=== PATIENT | female | born 1930 | race Caucasian/White ===

== ENCOUNTER 2017-09-26 21:25 | Inpatient (IN) | payer MEDICARE, BC ==
[~2017-09-26] VITALS: Ht 157.5 cm; Wt 71.2 kg
[2017-09-26 21:54] VITALS: BP 148/105
[2017-09-26 22:08] LABS: BASOPHILS % (AUTO) 0.7 % (0.0-2.0); EOSINOPHILS % (AUTO) 0.6 % (0.0-3.0); HEMATOCRIT 36.5 % (37.0-47.0); HEMOGLOBIN 12.1 G/DL (12.0-16.0); LYMPHOCYTES % (AUTO) 26.8 % (20.0-45.0); MEAN CORPUSCULAR VOLUME 96 FL (80-99); MONOCYTES % (AUTO) 5.5 % (1.0-10.0); NEUTROPHILS % (AUTO) 66.3 % (45.0-75.0); PLATELET COUNT 318 K/UL (150-450); RED BLOOD COUNT 3.81 M/UL (4.20-5.40); RED CELL DISTRIBUTION WIDTH 14.2 % (11.6-14.8); WHITE BLOOD COUNT 11.3 K/UL (4.8-10.8)
[2017-09-26 22:09] LABS: ANION GAP 7 mmol/L (5-15); BLOOD UREA NITROGEN 40 mg/dL (7-18); CALCIUM 9.7 MG/DL (8.5-10.1); CARBON DIOXIDE 29 MMOL/L (21-32); CHLORIDE 102 MMOL/L (98-107); CREATININE 1.3 MG/DL (0.55-1.30); POTASSIUM 3.7 MMOL/L (3.5-5.1); SODIUM 138 MMOL/L (136-145)
[2017-09-26] MEDS ORDERED: ATROPINE SULFATE PO (22:13)
[2017-09-26] MEDS ORDERED: DONEPEZIL HCL10 M2 ORAL (22:13)
[2017-09-26] MEDS ORDERED: FERROUS SULFAT325 MG ORAL (22:13)
[2017-09-26] MEDS ORDERED: VITAMIN D1000 UNI1 ORAL (22:13)
[2017-09-26] MEDS ORDERED: VITAMIN B-121000 MC3 PO (22:13)
[2017-09-26] MEDS ORDERED: LASIX20 M1 ORAL (22:13)
[2017-09-26] MEDS ORDERED: ELIQUIS5 MG PO (22:13)
[2017-09-26] MEDS ORDERED: CEPHALEXIN500 M1 ORAL (22:13)
[2017-09-26] MEDS ORDERED: NAMENDA5 MG ORAL (22:13)
[2017-09-26] MEDS ORDERED: POTASSIUM CHLO10 ME3 ORAL (22:13)
[2017-09-26 22:18] LABS: APPEARANCE,URINE CLEAR; BILIRUBIN, URINE NEGATIVE (NEGATIVE); COLOR,URINE PALE YELLOW; GLUCOSE, URINE (UA) NEGATIVE (NEGATIVE); KETONES,URINE NEGATIVE (NEGATIVE); LEUKOCYTE ESTERASE ,URINE NEGATIVE (NEGATIVE); NITRITE,URINE NEGATIVE (NEGATIVE); PH,URINE 5 (4.5-8.0); PROTEIN,URINE NEGATIVE (NEGATIVE); UROBILINOGEN,URINE NORMAL MG/DL (0.0-1.0)
--- NOTE | 2017-09-26 22:20 | Emergency Room Report ---
History of Present Illness General Chief Complaint: Dyspnea/Respdistress Source: Family Member, EMS Present Illness HPI Patient present paramedics from nursing facility Most of the information is obtained from patient's son He reports that few days ago patient had redness to the left jaw area She was started on Keflex The area has stayed erythematous Throughout the day today now she has deteriorated Having tremors and shakes Patient's speech however seems to have improved from previous Son reports the last time she had shaking she had pneumonia However these tremors seemed to be ongoing longer No reports of vomiting no reports of diarrhea Patient was also started on atropine recently Patient has a mild cough Patient herself is not able to provide any history, underlying dementia Son also reports recent bilateral pulmonary embolisms patient is on eliquis for that Son also reports that the patient had a fall several days ago which is unlike the patient Allergies: Coded Allergies: ACETAMINOPHEN (Verified Allergy, Unknown, 09/26/17) CODEINE (Verified Allergy, Unknown, 09/26/17) HYDROCODONE (Verified Allergy, Unknown, 09/26/17) MORPHINE (Verified Allergy, Unknown, 09/26/17) Uncoded Allergies: tartrazine (Allergy, Unknown, 09/26/17) Patient History Limited by: medical condition Pertinent Family History: unable to obtain Reviewed Nursing Documentation: PMH: Agreed, PSxH: Agreed Nursing Documentation-PMH History Of Psychiatric Problem: Yes - DEMENTIA Review of Systems All Other Systems: limited - Other than the ones mentioned in the history of present illness all others are reviewed however they do stay limited due to the patient's mental status Physical Exam Vital Signs Date Time Temp Pulse Resp B/P (MAP) Pulse Ox O2 Delivery O2 Flow Rate FiO2 09/26/17 21:35 98.8 100 18 148/105 94 Room Air 98.8 09/26/17 22:01 3.0 97 Sp02 EP Interpretation: reviewed, normal General Appearance: mild distress - Appears tremulous Head: normocephalic, atraumatic Eyes: bilateral eye PERRL ENT: other - Left-sided probable parotid gland erythema extending down into the lower mandibular region Neck: supple Respiratory: no retraction, crackles - With fine wheezing bilaterally no retractions Cardiovascular #1: no edema, no gallop Gastrointestinal: non tender, soft Genitourinary: no CVA tenderness Musculoskeletal: other - Patient has episodic tremors, appears agitated, no obvious focal weakness Neurologic: responsive - Responsive to the son, patient is able to also say a few words which the son reports is unusual for her Skin: other - Diffuse purpuric lesions, increased erythema at the chest area, increased erythema left mandibular parotid region Lymphatic: other - Left parotid gland edema Medical Decision Making Diagnostic Impression: Primary Impression: Pneumonia Additional Impressions: Encephalitis Parotiditis ER Course Patient is concerning with multiple differentials Complex requiring blood work and multiple imaging CT head does not reveal any acute pathology CT facial was also benign Patient's CT chest shows left lower lobe infiltrate however no signs of obvious emboli Patient has done significantly better with acute intervention And at this time admitted after antibiotic initiation Labs Test 09/26/17 21:50 09/26/17 22:09 09/26/17 22:45 White Blood Count 11.3 K/UL (4.8-10.8) Red Blood Count 3.81 M/UL (4.20-5.40) Hemoglobin 12.1 G/DL (12.0-16.0) Hematocrit 36.5 % (37.0-47.0) Mean Corpuscular Volume 96 FL (80-99) Mean Corpuscular Hemoglobin 31.8 PG (27.0-31.0) Mean Corpuscular Hemoglobin Concent 33.2 G/DL (32.0-36.0) Red Cell Distribution Width 14.2 % (11.6-14.8) Platelet Count 318 K/UL (150-450) Mean Platelet Volume 7.5 FL (6.5-10.1) Neutrophils (%) (Auto) 66.3 % (45.0-75.0) Lymphocytes (%) (Auto) 26.8 % (20.0-45.0) Monocytes (%) (Auto) 5.5 % (1.0-10.0) Eosinophils (%) (Auto) 0.6 % (0.0-3.0) Basophils (%) (Auto) 0.7 % (0.0-2.0) Sodium Level 138 MMOL/L (136-145) Potassium Level 3.7 MMOL/L (3.5-5.1) Chloride Level 102 MMOL/L (98-107) Carbon Dioxide Level 29 MMOL/L (21-32) Anion Gap 7 mmol/L (5-15) Blood Urea Nitrogen 40 mg/dL (7-18) Creatinine 1.3 MG/DL (0.55-1.30) Estimat Glomerular Filtration Rate mL/min (>60) Glucose Level 119 MG/DL (74-106) Lactic Acid Level 1.40 mmol/L (0.66-2.22) Calcium Level 9.7 MG/DL (8.5-10.1) Total Bilirubin 0.3 MG/DL (0.2-1.0) Aspartate Amino Transf (AST/SGOT) 18 U/L (15-37) Alanine Aminotransferase (ALT/SGPT) 14 U/L (12-78) Alkaline Phosphatase 62 U/L (46-116) Total Creatine Kinase 173 U/L (26-308) Creatine Kinase MB 2.6 NG/ML (0.0-3.6) Creatine Kinase MB Relative Index 1.5 Troponin I 0.000 ng/mL (0.000-0.056) Pro-B-Type Natriuretic Peptide 587 pg/mL (0-125) Total Protein 6.8 G/DL (6.4-8.2) Albumin 3.0 G/DL (3.4-5.0) Globulin 3.8 g/dL Albumin/Globulin Ratio 0.8 (1.0-2.7) Lipase 104 U/L (73-393) Urine Color Pale yellow Urine Appearance Clear Urine pH 5 (4.5-8.0) Urine Specific [place] 1.015 (1.005-1.035) Urine Protein Negative (NEGATIVE) Urine Glucose (UA) Negative (NEGATIVE) Urine Ketones Negative (NEGATIVE) Urine Occult Blood Negative (NEGATIVE) Urine Nitrite Negative (NEGATIVE) Urine Bilirubin Negative (NEGATIVE) Urine Urobilinogen Normal MG/DL (0.0-1.0) Urine Leukocyte Esterase Negative (NEGATIVE) Prothrombin Time 11.1 SEC (9.30-11.50) Prothromb Time International Ratio 1.1 (0.9-1.1) Activated Partial Thromboplast Time 29 SEC (23-33) Rhythm Strip Diag. Results EP Interpretation: yes Rate: 78 Rhythm: NSR, no PVC's, no ectopy Chest X-Ray Diagnostic Results Chest X-Ray Diagnostic Results : Chest X-Ray Ordered: Yes # of Views/Limited/Complete: 1 View Indication: Shortness of Breath EP Interpretation: Yes Interpretation: no pneumothorax, other - Left lower lobe atelectasis/ effusion versus infiltrate heart size borderline enlarged Impression: Other - Left lower lobe infiltrate Electronically Signed by: Cullen Bedoya, DO CT/MRI/US Diagnostic Results CT/MRI/US Diagnostic Results : Impression CT head no acute disease CT facial no acute disease CT chest left lower lobe infiltrate no obvious emboli Last Vital Signs Date Time Temp Pulse Resp B/P (MAP) Pulse Ox O2 Delivery O2 Flow Rate FiO2 09/26/17 22:01 108 33 Nasal Cannula 3.0 97 09/26/17 21:54 148/105 79 09/26/17 21:35 98.8 98.8 Status: improved Disposition: ADMITTED INPATIENT Condition: Serious CULLEN BEDOYA D.O. Sep 26, 2017 22:20
[2017-09-26] MEDS ORDERED: DiphenhydrAMINE 50mg/ml Inj IVP ONE (22:45)
[2017-09-26] MEDS ORDERED: LORazepam Inj 2mg/ml 1ml IV ONE (22:45)
[2017-09-26 22:46] LABS: ALANINE AMINOTRANSFERASE 14 U/L (12-78); ALBUMIN/GLOBULIN RATIO 0.8 (1.0-2.7); ALKALINE PHOSPHATASE 62 U/L (46-116); ASPARTATE AMINO TRANSFERASE 18 U/L (15-37); BILIRUBIN,TOTAL 0.3 MG/DL (0.2-1.0); CKMB 2.6 NG/ML (0.0-3.6); CREATINE KINASE 173 U/L (26-308)
[2017-09-26 23:06] LABS: INR 1.1 (0.9-1.1)
[2017-09-26] MEDS ORDERED: Midazolam 2mg/2ml Inj IVP ONE (23:15)
[2017-09-27 00:09] VITALS: BP 131/60
[2017-09-27 00:53] VITALS: BP 130/59
[2017-09-27] MEDS ORDERED: Nitroglycerin Subl 0.4mg tab SL PRN (04:45)
[2017-09-27] MEDS ORDERED: Pneumococcal Vaccine 25mcg/0.5ml IM ONE (04:45)
[2017-09-27] MEDS ORDERED: Flu Vaccine Quadrivalent 0.5ml IM ONE (04:45)
[2017-09-27] MEDS: Enoxaparin 30mg Inj SUBQ SCH (05:54)
[2017-09-27] MEDS ORDERED: 1/2NS w/KCl 20mEq 1000ml 1,000 ML IV SCH (06:00)
[2017-09-27] MEDS ORDERED: Ipratropium 0.02% Inh Soln 2.5ml UD HHN SCH (07:00)
[2017-09-27] MEDS: Albuterol/Ipratropium 3ml neb HHN SCH ×3 (08:24→19:22)
--- NOTE | 2017-09-27 09:01 | Consultation ---
History of Present Illness General Date patient seen: Sep 27, 2017 Chief Complaint: Dyspnea/Respdistress Present Illness HPI 87 year old female with hx of dementia, residential care facility resident brought in by paramedics with cc of wheezing and shaking. Pt was started on Keflex two days earlier for some facila cellulitis Initial evaluation including CXR showed that the pt had LLL pneumonia and admitted for further work up. Pt is awake, almost aphasic, only smiles to my questions. Allergies: Coded Allergies: ACETAMINOPHEN (Verified Allergy, Unknown, 09/26/17) CODEINE (Verified Allergy, Unknown, 09/26/17) HYDROCODONE (Verified Allergy, Unknown, 09/26/17) MORPHINE (Verified Allergy, Unknown, 09/26/17) Uncoded Allergies: tartrazine (Allergy, Unknown, 09/26/17) Medication History Scheduled Apixaban (Eliquis), 5 MG PO BID, (Reported) Cephalexin* (Cephalexin*), 500 MG ORAL BID, (Reported) Cholecalciferol (Vitamin D3)* (Vitamin D*), 2,000 UNITS ORAL DAILY, (Reported) Cyanocobalamin (Vitamin B-12) (Vitamin B-12), 1,000 MCG PO DAILY, (Reported) Donepezil Hcl* (Donepezil Hcl*), 10 MG ORAL DAILY, (Reported) Ferrous Sulfate* (Ferrous Sulfate*), 325 MG ORAL DAILY, (Reported) Furosemide* (Lasix*), 20 MG ORAL TWICE A DAY, (Reported) Memantine Hcl* (Namenda*), 5 MG ORAL TWICE A DAY, (Reported) Potassium Chloride (Potassium Chloride), 10 MEQ ORAL TWICE A DAY, (Reported) [Atropine Sulfate], 1 % PO THREE TIMES A DAY, (Reported) Patient History Healthcare decision maker Resuscitation status Full Code Advanced Directive on File No Past Medical/Surgical History Past Medical/Surgical History: (1) Dementia Review of Systems All Other Systems: negative except mentioned in HPI Physical Exam General Appearance: WD/WN Lines, tubes and drains: peripheral HEENT: normocephalic, atraumatic Neck: non-tender, normal alignment Respiratory/Chest: chest wall non-tender, lungs clear Cardiovascular/Chest: normal peripheral pulses, normal rate Abdomen: normal bowel sounds, non tender Genitourinary/Rectal: normal genital exam, normal rectal exam Extremities: normal range of motion, non-tender Skin Exam: normal pigmentation Neurologic: clinical rehabilitation specialist II-XII grossly normal Last 24 Hour Vital Signs Date Time Temp Pulse Resp B/P (MAP) Pulse Ox O2 Delivery O2 Flow Rate FiO2 09/27/17 08:30 91 20 98 Room Air 21 09/27/17 08:24 21 09/27/17 08:24 90 20 98 Room Air 21 09/27/17 08:24 90 20 Room Air 98 09/27/17 03:58 77 09/27/17 01:00 103 25 130/59 99 Room Air 09/27/17 00:53 98.8 25 130/59 99 Nasal Cannula 3.0 97 98.8 09/27/17 00:09 98.8 25 131/60 99 Nasal Cannula 3.0 98.8 09/26/17 22:01 108 33 Nasal Cannula 3.0 97 09/26/17 21:54 112 33 148/105 79 Room Air 09/26/17 21:35 98.8 100 18 148/105 94 Room Air 98.8 Intake and Output 09/26/17 09/27/17 19:00 07:00 Intake Total 71.6 ml Balance 71.6 ml IV Total 71.6 ml # Voids 1 Laboratory Tests Test 09/26/17 21:50 09/26/17 22:09 09/26/17 22:45 White Blood Count 11.3 K/UL (4.8-10.8) H Red Blood Count 3.81 M/UL (4.20-5.40) L Hemoglobin 12.1 G/DL (12.0-16.0) Hematocrit 36.5 % (37.0-47.0) L Mean Corpuscular Volume 96 FL (80-99) Mean Corpuscular Hemoglobin 31.8 PG (27.0-31.0) H Mean Corpuscular Hemoglobin Concent 33.2 G/DL (32.0-36.0) Red Cell Distribution Width 14.2 % (11.6-14.8) Platelet Count 318 K/UL (150-450) Mean Platelet Volume 7.5 FL (6.5-10.1) Neutrophils (%) (Auto) 66.3 % (45.0-75.0) Lymphocytes (%) (Auto) 26.8 % (20.0-45.0) Monocytes (%) (Auto) 5.5 % (1.0-10.0) Eosinophils (%) (Auto) 0.6 % (0.0-3.0) Basophils (%) (Auto) 0.7 % (0.0-2.0) Sodium Level 138 MMOL/L (136-145) Potassium Level 3.7 MMOL/L (3.5-5.1) Chloride Level 102 MMOL/L (98-107) Carbon Dioxide Level 29 MMOL/L (21-32) Anion Gap 7 mmol/L (5-15) Blood Urea Nitrogen 40 mg/dL (7-18) H Creatinine 1.3 MG/DL (0.55-1.30) Estimat Glomerular Filtration Rate mL/min (>60) Glucose Level 119 MG/DL (74-106) H Lactic Acid Level 1.40 mmol/L (0.66-2.22) Calcium Level 9.7 MG/DL (8.5-10.1) Total Bilirubin 0.3 MG/DL (0.2-1.0) Aspartate Amino Transf (AST/SGOT) 18 U/L (15-37) Alanine Aminotransferase (ALT/SGPT) 14 U/L (12-78) Alkaline Phosphatase 62 U/L (46-116) Total Creatine Kinase 173 U/L (26-308) Creatine Kinase MB 2.6 NG/ML (0.0-3.6) Creatine Kinase MB Relative Index 1.5 Troponin I 0.000 ng/mL (0.000-0.056) Pro-B-Type Natriuretic Peptide 587 pg/mL (0-125) H Total Protein 6.8 G/DL (6.4-8.2) Albumin 3.0 G/DL (3.4-5.0) L Globulin 3.8 g/dL Albumin/Globulin Ratio 0.8 (1.0-2.7) L Lipase 104 U/L (73-393) Urine Color Pale yellow Urine Appearance Clear Urine pH 5 (4.5-8.0) Urine Specific [place] 1.015 (1.005-1.035) Urine Protein Negative (NEGATIVE) Urine Glucose (UA) Negative (NEGATIVE) Urine Ketones Negative (NEGATIVE) Urine Occult Blood Negative (NEGATIVE) Urine Nitrite Negative (NEGATIVE) Urine Bilirubin Negative (NEGATIVE) Urine Urobilinogen Normal MG/DL (0.0-1.0) Urine Leukocyte Esterase Negative (NEGATIVE) Prothrombin Time 11.1 SEC (9.30-11.50) Prothromb Time International Ratio 1.1 (0.9-1.1) Activated Partial Thromboplast Time 29 SEC (23-33) Microbiology Date/Time Source Procedure Growth Status 09/26/17 22:45 Nasal Nares Influenza Types A,B Antigen (TATUM) - Final Complete Height (Feet): 5 Height (Inches): 2.00 Weight (Pounds): 133 Medications Current Medications Medications (Trade) Dose Ordered Sig/Rambo Route PRN Reason Start Time Stop Time Status Last Admin Dose Admin Acetaminophen (Tylenol) 650 mg Q4H PRN ORAL Mild Pain (Pain Scale 1-3) 09/27/17 04:45 10/27/17 04:44 UNV Albuterol/ Ipratropium (Albuterol/ Ipratropium) 3 ml Q6HRT HHN 09/27/17 07:00 10/02/17 06:59 09/27/17 08:24 Dextrose (Dextrose 50%) STAT PRN IV Hypoglycemia 09/27/17 04:45 10/27/17 04:44 Enoxaparin Sodium (Lovenox) 30 mg Q24H SUBQ 09/27/17 06:00 10/27/17 05:59 09/27/17 05:54 Famotidine (Pepcid) 20 mg BID ORAL 09/27/17 09:00 10/27/17 08:59 Influenza Virus Vaccine Quadrival (Flu Vaccine Quadrivalent) 0.5 ml ONCE ONCE IM 09/27/17 04:45 09/27/17 04:46 UNV Nitroglycerin (Ntg) 0.4 mg Q5M PRN SL Prn Chest Pain 09/27/17 04:45 10/27/17 04:44 Pneumococcal Polyvalent Vaccine (Pneumovax) 0.5 ml ONCE ONCE IM 09/27/17 04:45 09/27/17 04:46 UNV Sodium 1,000 ml @ 100 mls/hr Q10H IV 09/27/17 06:00 10/27/17 05:59 09/27/17 06:17 Assessment/Plan Problem List: (1) Pneumonia ICD Codes: J18.9 - Pneumonia, unspecified organism SNOMED: 875152076 (2) Parotiditis ICD Codes: K11.20 - Sialoadenitis, unspecified SNOMED: 86610403 (3) Dementia ICD Codes: F03.90 - Unspecified dementia without behavioral disturbance SNOMED: 33529933 Assessment/Plan respiratory treatment iv abx check cultures chest PT sputum induction titrate fio2 to sat of 92% BHAVESH MARION Sep 27, 2017 09:01
--- NOTE | 2017-09-27 09:41 | Diagnostic Imaging Report ---
Indication: Chest pain Technique: Continuous helical transaxial imaging of the chest was obtained from the thoracic inlet to the upper abdomen during rapid intravenous contrast administration. Arterial phase of enhancement obtained. Coronal 2-D reformats were also obtained and maximum intensity projection images in multiple planes. Study obtained in a Siemens sensation [address] Automatic Exposure Control was utilized. Total Dose length Product (DLP): 1225.[address] Dose Index Volume (CTDIvol): 23.9,28.19 mGy Comparison: None Findings: The study is significantly degraded by motion. There is no obvious central pulmonary embolus. More distal branching and evaluation is limited. The heart is enlarged. The aorta shows mural calcification without obvious dissection. There is no aneurysm. The esophagus is dilated and fluid-filled.. There is posterior basilar atelectasis. No obvious consolidation identified. No significant effusion or pericardial effusion identified. IMPRESSION: Limited evaluation due to motion No obvious central pulmonary embolus. Evaluation limited in this regard. Atherosclerotic disease of aorta Dilated esophagus. Suspect achalasia. Further evaluation recommended. [facility] has communicated the preliminary results to the Emergency Department. Their findings are largely concordant with this report. The CT scanner at [facility] is accredited by the [employer] and the scans are performed using dose optimization techniques as appropriate to a performed exam including Automatic Exposure control.
--- NOTE | 2017-09-27 09:43 | Diagnostic Imaging Report ---
Indication: Trauma. Facial pain. Technique: Continuous helical transaxial imaging of the maxillofacial structures obtained after intravenous contrast administration. Coronal 2-D reformats were also obtained. Study obtained in a Siemens sensation [address] Total Dose length Product (DLP): 1326.[address] Dose Index Volume (CTDIvol): 70.38 mGy Comparison: None Findings: There is no evidence of an acute fracture. Paranasal sinuses and mastoids are clear. Soft tissues are unremarkable. The left parotid gland appears slightly enlarged and asymmetric to the right. Please correlate clinically. No adenopathy appreciated. Orbits appear symmetric. Arterial calcifications noted at the carotid bifurcations. Degenerative changes of the cervical spine noted. IMPRESSION: Limited evaluation due to motion. Query left parotiditis. No acute injury. Other incidental findings as above. [facility] has communicated the preliminary results to the Emergency Department. Their findings are largely concordant with this report.
--- NOTE | 2017-09-27 09:46 | Diagnostic Imaging Report ---
Indication: Altered mental status Technique: Contiguous 5 mm thick transaxial imaging of the head obtained in a Siemens Sensation [address] scanner. Soft tissue and bone windows generated. Automatic Exposure Control was utilized. Total Dose length Product (DLP): 1326.[address] Dose Index Volume (CTDIvol): 70.38 mGy Comparison: none Findings: There is moderate prominence of the ventricles, basal cisterns, and cerebral sulci consistent with atrophy. Moderate, nonspecific, white matter hypoattenuation is noted throughout the brain consistent with chronic small vessel disease. There is no midline shift, edema, acute hemorrhage, mass effect, or abnormal extra-axial fluid collections. Bones and extra osseous soft tissues are unremarkable. Impression: No acute intracranial bleed, mass effect or edema. Moderate atrophy of the brain. Evidence of chronic small vessel disease involving white matter tracts. Study degraded by motion. [facility] has communicated the preliminary results to the Emergency Department. Their findings are largely concordant with this report. The CT scanner at [facility] is accredited by the [employer] and the scans are performed using dose optimization techniques as appropriate to a performed exam including Automatic Exposure control.
--- NOTE | 2017-09-27 10:02 | Diagnostic Imaging Report ---
Indication: Dyspnea Comparison: None A single view chest radiograph was obtained. Findings: There is a lucency projected over the superior mediastinum. By CT we know this represents dilated esophagus which is extremely patulous and possibly Rep. Of achalasia. The heart is normal in size. Generalized interstitial prominence demonstrated. There is blunting of the left costophrenic angle due to basilar atelectasis. There is no effusion by CT. Surgical clips noted in the upper chest on the right. IMPRESSION: Suspected achalasia. Please refer to the CTA chest for more information
[2017-09-27 10:26] LABS: BASOPHILS % (AUTO) 0.9 % (0.0-2.0); HEMATOCRIT 33.8 % (37.0-47.0); LYMPHOCYTES % (AUTO) 11.4 % (20.0-45.0); MEAN CORPUSCULAR VOLUME 97 FL (80-99); MONOCYTES % (AUTO) 7.7 % (1.0-10.0); NEUTROPHILS % (AUTO) 79.1 % (45.0-75.0); PLATELET COUNT 271 K/UL (150-450); RED BLOOD COUNT 3.48 M/UL (4.20-5.40); RED CELL DISTRIBUTION WIDTH 14.7 % (11.6-14.8); WHITE BLOOD COUNT 7.8 K/UL (4.8-10.8)
[2017-09-27 10:54] LABS: ALANINE AMINOTRANSFERASE 13 U/L (12-78); ALBUMIN 2.5 G/DL (3.4-5.0); ALBUMIN/GLOBULIN RATIO 0.7 (1.0-2.7); ALKALINE PHOSPHATASE 50 U/L (46-116); ANION GAP 4 mmol/L (5-15); ASPARTATE AMINO TRANSFERASE 17 U/L (15-37); BILIRUBIN,TOTAL 0.2 MG/DL (0.2-1.0); BLOOD UREA NITROGEN 30 mg/dL (7-18); CALCIUM 9.1 MG/DL (8.5-10.1); CARBON DIOXIDE 30 MMOL/L (21-32); CHLORIDE 106 MMOL/L (98-107); CREATININE 1.2 MG/DL (0.55-1.30); SODIUM 140 MMOL/L (136-145)
[2017-09-27] MEDS: 1/2NS w/KCl 20mEq 1000ml 1,000 ML IV SCH (11:00)
[2017-09-27] MEDS: Solu-MEDROL 40mg Inj IVP SCH ×3 (12:00→18:40)
--- NOTE | 2017-09-27 12:34 | History & Physical ---
History and Physical History & Physicial ID job: [id number] Oleg Brown Sep 27, 2017 12:34
--- NOTE | 2017-09-27 14:28 | GI Initial Consult Note ---
TeriMary Anne Jorge N.PRuddy 09/27/17 1428: History of Present Illness General Date patient seen: Sep 27, 2017 Time patient seen: 14:17 Reason for Hospitalization: Dyspnea/Respdistress Referring physician: BHAVESH HUNT Reason for Consultation: ACHALASIA Present Illness HPI Patient present paramedics from nursing facility Most of the information is obtained from patient's son He reports that few days ago patient had redness to the left jaw area She was started on Keflex The area has stayed erythematous Throughout the day today now she has deteriorated Having tremors and shakes Patient's speech however seems to have improved from previous Son reports the last time she had shaking she had pneumonia However these tremors seemed to be ongoing longer No reports of vomiting no reports of diarrhea Patient was also started on atropine recently Patient has a mild cough Patient herself is not able to provide any history, underlying dementia Son also reports recent bilateral pulmonary embolisms patient is on eliquis for that Son also reports that the patient had a fall several days ago which is unlike the patient GI consulted for history of achalasia. ROS limited, pt seen awake agitated with sitter at bedside with no active s/sx of N/V/D. Currently NPO + IVFs. All history obtained from chart. Pt has dementia. Denies any abdominal pain, no constipation or diarrhea. Denies any unintentional weight loss or changes in dietary habits. Unknown history of endoscopy / colonoscopy. Home Meds Reported Medications [Atropine Sulfate] No Conflict Check, 1 % PO THREE TIMES A DAY 09/26/17 Cephalexin* (CEPHALEXIN*) 500 Mg Tablet, 500 MG ORAL BID, CAP 09/26/17 Donepezil Hcl* (DONEPEZIL HCL*) 10 Mg Tab.rapdis, 10 MG ORAL DAILY, TAB 09/26/17 Apixaban (ELIQUIS) 5 Mg Tablet, 5 MG PO BID, TAB 09/26/17 Ferrous Sulfate* (FERROUS SULFATE*) 325 Mg Tablet, 325 MG ORAL DAILY, TAB 0 Refills 09/26/17 Furosemide* (LASIX*) 20 Mg Tablet, 20 MG ORAL TWICE A DAY, TAB 09/26/17 Memantine Hcl* (NAMENDA*) 5 Mg Tablet, 5 MG ORAL TWICE A DAY, TAB 09/26/17 Potassium Chloride (POTASSIUM CHLORIDE) 10 Meq Tablet.er, 10 MEQ ORAL TWICE A DAY, TAB 0 Refills 09/26/17 Cyanocobalamin (Vitamin B-12) (VITAMIN B-12) 1,000 Mcg Capsule, 1000 MCG PO DAILY, CAP 09/26/17 Cholecalciferol (Vitamin D3)* (VITAMIN D*) 1,000 Unit Tablet, 2000 UNITS ORAL DAILY, TAB 0 Refills 09/26/17 Med list reviewed/reconciled: Yes Allergies: Coded Allergies: ACETAMINOPHEN (Verified Allergy, Unknown, 09/26/17) CODEINE (Verified Allergy, Unknown, 09/26/17) HYDROCODONE (Verified Allergy, Unknown, 09/26/17) MORPHINE (Verified Allergy, Unknown, 09/26/17) Uncoded Allergies: tartrazine (Allergy, Unknown, 09/26/17) Patient History Limited by: medical condition History Provided By: Medical Record PMH Narrative Limited by: medical condition Pertinent Family History: unable to obtain Reviewed Nursing Documentation: PMH: Agreed, PSxH: Agreed Nursing Documentation-PMH History Of Psychiatric Problem: Yes - DEMENTIA Review of Systems All Other Systems: negative except mentioned in HPI Physical Exam Vital Signs Date Time Temp Pulse Resp B/P (MAP) Pulse Ox O2 Delivery O2 Flow Rate FiO2 09/26/17 21:35 98.8 100 18 148/105 94 Room Air 98.8 09/26/17 22:01 3.0 97 Sp02 EP Interpretation: reviewed, normal Labs Laboratory Tests Test 09/26/17 21:50 09/26/17 22:09 09/26/17 22:45 09/27/17 10:10 White Blood Count 11.3 K/UL (4.8-10.8) H 7.8 K/UL (4.8-10.8) Red Blood Count 3.81 M/UL (4.20-5.40) L 3.48 M/UL (4.20-5.40) L Hemoglobin 12.1 G/DL (12.0-16.0) 11.0 G/DL (12.0-16.0) L Hematocrit 36.5 % (37.0-47.0) L 33.8 % (37.0-47.0) L Mean Corpuscular Volume 96 FL (80-99) 97 FL (80-99) Mean Corpuscular Hemoglobin 31.8 PG (27.0-31.0) H 31.7 PG (27.0-31.0) H Mean Corpuscular Hemoglobin Concent 33.2 G/DL (32.0-36.0) 32.7 G/DL (32.0-36.0) Red Cell Distribution Width 14.2 % (11.6-14.8) 14.7 % (11.6-14.8) Platelet Count 318 K/UL (150-450) 271 K/UL (150-450) Mean Platelet Volume 7.5 FL (6.5-10.1) 7.6 FL (6.5-10.1) Neutrophils (%) (Auto) 66.3 % (45.0-75.0) 79.1 % (45.0-75.0) H Lymphocytes (%) (Auto) 26.8 % (20.0-45.0) 11.4 % (20.0-45.0) L Monocytes (%) (Auto) 5.5 % (1.0-10.0) 7.7 % (1.0-10.0) Eosinophils (%) (Auto) 0.6 % (0.0-3.0) 1.0 % (0.0-3.0) Basophils (%) (Auto) 0.7 % (0.0-2.0) 0.9 % (0.0-2.0) Sodium Level 138 MMOL/L (136-145) 140 MMOL/L (136-145) Potassium Level 3.7 MMOL/L (3.5-5.1) 4.0 MMOL/L (3.5-5.1) Chloride Level 102 MMOL/L (98-107) 106 MMOL/L (98-107) Carbon Dioxide Level 29 MMOL/L (21-32) 30 MMOL/L (21-32) Anion Gap 7 mmol/L (5-15) 4 mmol/L (5-15) L Blood Urea Nitrogen 40 mg/dL (7-18) H 30 mg/dL (7-18) H Creatinine 1.3 MG/DL (0.55-1.30) 1.2 MG/DL (0.55-1.30) Estimat Glomerular Filtration Rate mL/min (>60) mL/min (>60) Glucose Level 119 MG/DL (74-106) H 94 MG/DL (74-106) Lactic Acid Level 1.40 mmol/L (0.66-2.22) Calcium Level 9.7 MG/DL (8.5-10.1) 9.1 MG/DL (8.5-10.1) Total Bilirubin 0.3 MG/DL (0.2-1.0) 0.2 MG/DL (0.2-1.0) Aspartate Amino Transf (AST/SGOT) 18 U/L (15-37) 17 U/L (15-37) Alanine Aminotransferase (ALT/SGPT) 14 U/L (12-78) 13 U/L (12-78) Alkaline Phosphatase 62 U/L (46-116) 50 U/L (46-116) Total Creatine Kinase 173 U/L (26-308) Creatine Kinase MB 2.6 NG/ML (0.0-3.6) Creatine Kinase MB Relative Index 1.5 Troponin I 0.000 ng/mL (0.000-0.056) Pro-B-Type Natriuretic Peptide 587 pg/mL (0-125) H Total Protein 6.8 G/DL (6.4-8.2) 5.9 G/DL (6.4-8.2) L Albumin 3.0 G/DL (3.4-5.0) L 2.5 G/DL (3.4-5.0) L Globulin 3.8 g/dL 3.4 g/dL Albumin/Globulin Ratio 0.8 (1.0-2.7) L 0.7 (1.0-2.7) L Lipase 104 U/L (73-393) Urine Color Pale yellow Urine Appearance Clear Urine pH 5 (4.5-8.0) Urine Specific Abie 1.015 (1.005-1.035) Urine Protein Negative (NEGATIVE) Urine Glucose (UA) Negative (NEGATIVE) Urine Ketones Negative (NEGATIVE) Urine Occult Blood Negative (NEGATIVE) Urine Nitrite Negative (NEGATIVE) Urine Bilirubin Negative (NEGATIVE) Urine Urobilinogen Normal MG/DL (0.0-1.0) Urine Leukocyte Esterase Negative (NEGATIVE) Prothrombin Time 11.1 SEC (9.30-11.50) Prothromb Time International Ratio 1.1 (0.9-1.1) Activated Partial Thromboplast Time 29 SEC (23-33) General Appearance: well appearing, no apparent distress, alert Head: normocephalic EENT: PERRL/EOMI, normal ENT inspection Neck: supple Respiratory: normal breath sounds, no respiratory distress Cardiovascular: normal rate Gastrointestinal: normal inspection, non tender, soft, normal bowel sounds, non -distended Rectal: deferred Genitourinary: no CVA tenderness Musculoskeletal: normal inspection, back normal Neurologic: normal inspection, alert, oriented x3, responsive Psychiatric: normal inspection, judgement/insight normal, memory normal Skin: normal inspection, normal color, no rash, warm/dry, palpation normal, well hydrated Lymphatic: normal inspection, no adenopathy Current Medications Current Medications Medications (Trade) Dose Ordered Sig/Rambo Route PRN Reason Start Time Stop Time Status Last Admin Dose Admin Acetaminophen (Tylenol) 650 mg Q4H PRN ORAL Mild Pain (Pain Scale 1-3) 09/27/17 04:45 10/27/17 04:44 UNV Albuterol/ Ipratropium (Albuterol/ Ipratropium) 3 ml Q6HRT HHN 09/27/17 07:00 10/02/17 06:59 09/27/17 13:40 Dextrose (Dextrose 50%) STAT PRN IV Hypoglycemia 09/27/17 04:45 10/27/17 04:44 Enoxaparin Sodium (Lovenox) 30 mg Q24H SUBQ 09/27/17 06:00 10/27/17 05:59 09/27/17 05:54 Famotidine (Pepcid) 20 mg BID ORAL 09/27/17 09:00 10/27/17 08:59 09/27/17 09:24 Influenza Virus Vaccine Quadrival (Flu Vaccine Quadrivalent) 0.5 ml ONCE ONCE IM 09/27/17 04:45 09/27/17 04:46 UNV Levofloxacin 50 ml @ 50 mls/hr Q24H IVPB 09/27/17 23:00 10/04/17 22:59 Methylprednisolone Sodium Succinate (Solu-MEDROL) 40 mg EVERY 6 HOURS IVP 09/27/17 12:00 10/27/17 11:59 09/27/17 12:00 Nitroglycerin (Ntg) 0.4 mg Q5M PRN SL Prn Chest Pain 09/27/17 04:45 10/27/17 04:44 Pneumococcal Polyvalent Vaccine (Pneumovax) 0.5 ml ONCE ONCE IM 09/27/17 04:45 09/27/17 04:46 UNV Sodium 1,000 ml @ 30 mls/hr Q24H IV 09/27/17 11:00 10/27/17 10:59 09/27/17 11:00 GI: Plan Problems: (1) Achalasia of esophagus (2) Dyspnea (3) Dementia Plan esophagram ordered low sodium diet anemia work up OB stool r/o GI bleed monitor H&H, prn transfusions bowel regime ppi fu labs Discussed with Dr. Draper. Thank you for this patient referral, we will follow. RADHA DRAPER 10/03/17 1336: History of Present Illness General Reason for Hospitalization: Dyspnea/Respdistress Present Illness Home Meds Reported Medications [Atropine Sulfate] No Conflict Check, 1 % PO THREE TIMES A DAY 09/26/17 Cephalexin* (CEPHALEXIN*) 500 Mg Tablet, 500 MG ORAL BID, CAP 09/26/17 Donepezil Hcl* (DONEPEZIL HCL*) 10 Mg Tab.rapdis, 10 MG ORAL DAILY, TAB 09/26/17 Apixaban (ELIQUIS) 5 Mg Tablet, 5 MG PO BID, TAB 09/26/17 Ferrous Sulfate* (FERROUS SULFATE*) 325 Mg Tablet, 325 MG ORAL DAILY, TAB 0 Refills 09/26/17 Furosemide* (LASIX*) 20 Mg Tablet, 20 MG ORAL TWICE A DAY, TAB 09/26/17 Memantine Hcl* (NAMENDA*) 5 Mg Tablet, 5 MG ORAL TWICE A DAY, TAB 09/26/17 Potassium Chloride (POTASSIUM CHLORIDE) 10 Meq Tablet.er, 10 MEQ ORAL TWICE A DAY, TAB 0 Refills 09/26/17 Cyanocobalamin (Vitamin B-12) (VITAMIN B-12) 1,000 Mcg Capsule, 1000 MCG PO DAILY, CAP 09/26/17 Cholecalciferol (Vitamin D3)* (VITAMIN D*) 1,000 Unit Tablet, 2000 UNITS ORAL DAILY, TAB 0 Refills 09/26/17 Allergies: Coded Allergies: ACETAMINOPHEN (Verified Allergy, Unknown, 09/26/17) CODEINE (Verified Allergy, Unknown, 09/26/17) HYDROCODONE (Verified Allergy, Unknown, 09/26/17) MORPHINE (Verified Allergy, Unknown, 09/26/17) Uncoded Allergies: tartrazine (Allergy, Unknown, 09/26/17) GI: Plan Plan The patient was seen and examined at bedside and all new and available data was reviewed in the patients chart. I agree with the above findings, impression and plan. (Patient seen earlier today. Signature stamp does not reflect patient encounter time.). - MD Ter[facility] Jorge Macias.Ame Sep 27, 2017 14:28 RADHA DRAPER Oct 03, 2017 13:36
--- NOTE | 2017-09-27 18:51 | Consultation ---
Consult Note Consult Note [id number] NATE RAMOS M.D. Sep 27, 2017 18:51
[2017-09-27 20:00] VITALS: BP 133/72
[2017-09-27] MEDS ORDERED: Vancomycin 1250mg/D5W 250ml IVPB ONE (22:00)
[2017-09-27] MEDS: LORazepam Inj 2mg/ml 1ml IV PRN (23:15)
[2017-09-27] MEDS: Levofloxacin 250mg/D5W 50ml IVPB SCH (23:59)
[2017-09-28] VITALS (7 sets, daily range): BP systolic 102–140; BP diastolic 56–83
[2017-09-28] MEDS: Albuterol/Ipratropium 3ml neb HHN SCH ×5 (01:07→23:53)
[2017-09-28] MEDS: Solu-MEDROL 40mg Inj IVP SCH ×4 (01:28→17:37)
--- NOTE | 2017-09-28 02:00 | Consultation ---
DATE OF CONSULTATION: 09/27/2017 INFECTIOUS DISEASES CONSULTATION CONSULTING PHYSICIAN: Amol Gandhi M.D. REQUESTING PHYSICIAN: Oleg Brown M.D. REASON FOR CONSULTATION: Evaluation of the patient for parotitis, possible pneumonia. HISTORY OF PRESENT ILLNESS: The patient is an 87-year-old female with multiple medical problems who was admitted to this medical center with weakness and swelling over the left jaw suggestive of parotitis. The patient was taking Keflex with significant improvement. The patient has also occasional cough. Infectious Diseases consultation has been requested for further evaluation of the patient and antibiotic management. PAST MEDICAL HISTORY: 1. Dementia. 2. History of pulmonary emboli. 3. History of back pain. 4. Depression. MEDICATIONS: Levaquin. ALLERGIES: Morphine, hydrocodone, codeine, and acetaminophen. FAMILY HISTORY: Noncontributing. SOCIAL HISTORY: The patient is a resident of [facility]. REVIEW OF SYSTEMS: The patient is unable to provide detailed information. PHYSICAL EXAMINATION: VITAL SIGNS: Temperature 98.8, pulse 86, respiratory rate 18, and blood pressure 130/59. HEENT: No pale conjunctivae. No icterus. NECK: No lymphadenopathy. The patient has swelling over the upper part of the neck over the parathyroid area that is tender on touch. CHEST: Clear. HEART: S1 and S2. ABDOMEN: Soft. EXTREMITIES: No cyanosis at this time. NEUROLOGIC: Confused. LABORATORY AND DIAGNOSTIC DATA: White blood cells at the time of admission 11, decreased to 7.8; hemoglobin 11; and platelets 270. UA unremarkable. BUN 30 and creatinine 1.2. ALT, AST, and alkaline phosphatase unremarkable. Rapid influenza A/B negative. CT of the chest, no evidence of PE or infiltrate. Facial CT suggestive of left parotitis. ASSESSMENT: The patient is an 87-year-old female with, 1. Leukocytosis, improved. 2. Left parotitis. 3. No evidence of pneumonia. 4. Afebrile. PLAN: 1. We will start the patient on IV vancomycin and continue Levaquin. 2. Monitor CBC. 3. Monitor BMP. 4. Monitor chest x-ray. 5. Monitor cultures (blood). 6. Based on the patient's clinical course and labs, we will do further recommendations. Thank you, Dr. Brown, for allowing me to participate in the care of this patient. I will follow this patient with you during this hospitalization. Amol Gandhi M.D. DR: Tena JOB#: [id number] CC:
[2017-09-28] MEDS: LORazepam Inj 2mg/ml 1ml IV PRN ×2 (03:07→16:05)
[2017-09-28] MEDS: Enoxaparin 30mg Inj SUBQ SCH (05:41)
[2017-09-28 08:44] LABS: HEMATOCRIT 35.1 % (37.0-47.0); HEMOGLOBIN 11.4 G/DL (12.0-16.0); MEAN CORPUSCULAR VOLUME 99 FL (80-99); PLATELET COUNT 307 K/UL (150-450); RED BLOOD COUNT 3.55 M/UL (4.20-5.40); RED CELL DISTRIBUTION WIDTH 14.8 % (11.6-14.8); WHITE BLOOD COUNT 9.4 K/UL (4.8-10.8)
--- NOTE | 2017-09-28 08:45 | History and Physical Report ---
DATE OF ADMISSION: 09/26/2017 I am covering for Dr. Briceno. HISTORY OF PRESENT ILLNESS: The patient is a pleasant 87-year-old female with past medical history significant for dementia, a resident of [facility], at this time presents with shaking, wheezing, recently discontinued Keppra, cellulitis. I have consulted ID Service and Pulmonary team. The patient with a history of pneumonia, admitted for further workup, difficult to converse smiling on exam. We started the patient on antibiotics. I have consulted Neurology, potential EEG, inpatient, for further evaluation and care. PAST MEDICAL HISTORY: As noted above. PAST SURGICAL HISTORY: None noted. MEDICATIONS: Apixaban, Keflex, vitamin B12, ferrous sulfate, Lasix, and Ambien. ALLERGIES: , Tylenol, codeine, and NovoLog. REVIEW OF SYSTEMS: CONSTITUTIONAL: No fevers, chills, or night sweats. SKIN: No rashes, bumps, or itching. HEENT: No headache, hearing or vision changes. BREASTS: No lumps, pain, or discharge. PULMONARY: No cough, sputum, or shortness of breath. GASTROINTESTINAL: No nausea, vomiting, or diarrhea. GENITOURINARY: No dysuria, frequency, or urgency. MUSCULOSKELETAL: No joint swelling, muscle pain, or trauma. PHYSICAL EXAMINATION: VITAL SIGNS: Reviewed. GENERAL: No distress. PULMONARY: Decreased breath sounds. CARDIOVASCULAR: Regular rate. No S3 or S4. ABDOMEN: Soft, nontender, and nondistended. EXTREMITIES: No cyanosis, swelling, or edema. LABORATORY AND DIAGNOSTIC DATA: WBC 7.8, hemoglobin 11, hematocrit 34, and platelet count of 271,000. INR of 1.1. BUN of 30, creatinine 1.[address] chest shows dilated esophagus, . ASSESSMENT AND RECOMMENDATIONS: 1. Chronic obstructive pulmonary disease exacerbation. To be seen by Pulmonary team. We started her on Keflex. Closely monitor. Pulmonary treatments have been started. 2. Pneumonia history, status post treatment in the past with antibiotics. I have consulted ID Service as well. 3. Tremor, shaking, unsure if this was a seizure episode and I have consulted the patient with Neurology, Dr. Mendes. 4. Dementia. Closely monitor. Neurology Service to see if the patient needs to start any medications. CT scan of the head did not show any acute intracranial pathology. 5. Left effusion, to be seen again by Dr. Gandhi. 6. I appreciate consultation of consultants. We will continue to closely monitor. Oleg Brown M.D. DR: KIERA JOB#: [id number] CC:
[2017-09-28 09:14] LABS: ALANINE AMINOTRANSFERASE 17 U/L (12-78); ALBUMIN 2.8 G/DL (3.4-5.0); ALBUMIN/GLOBULIN RATIO 0.7 (1.0-2.7); ALKALINE PHOSPHATASE 57 U/L (46-116); ANION GAP 5 mmol/L (5-15); ASPARTATE AMINO TRANSFERASE 29 U/L (15-37); BILIRUBIN,TOTAL 0.3 MG/DL (0.2-1.0); BLOOD UREA NITROGEN 22 mg/dL (7-18); CARBON DIOXIDE 30 MMOL/L (21-32); CHLORIDE 106 MMOL/L (98-107); CREATININE 1.2 MG/DL (0.55-1.30); POTASSIUM 4.4 MMOL/L (3.5-5.1); SODIUM 141 MMOL/L (136-145)
[2017-09-28 09:22] LABS: % IRON SATURATION 12 % (15-50); IRON 40 ug/dL (50-175); TOTAL IRON BINDING CAPACITY 322 ug/dL (250-450)
[2017-09-28 09:24] LABS: PHOSPHORUS 3.6 MG/DL (2.5-4.9)
--- NOTE | 2017-09-28 10:40 | Diagnostic Imaging Report ---
Indication: Dyspnea Comparison: 09/26/2017 A single view chest radiograph was obtained. Findings: Similar findings demonstrated. Dilated esophagus again noted. The heart is enlarged. Retrocardiac opacity again noted. IMPRESSION: No interchange agent the last 2 days
[2017-09-28] MEDS: 1/2NS w/KCl 20mEq 1000ml 1,000 ML IV SCH (11:01)
--- NOTE | 2017-09-28 11:04 | GI Progress Note ---
Assessment/Plan Problems: (1) Dementia ICD Codes: F03.90 - Unspecified dementia without behavioral disturbance SNOMED: 31129271 (2) Achalasia of esophagus ICD Codes: K22.0 - Achalasia of cardia SNOMED: 88281633 (3) Dyspnea ICD Codes: R06.00 - Dyspnea, unspecified SNOMED: 668758817 Status: stable Status Narrative Discussed with Dr. Ledesma. Assessment/Plan esophagram ordered low sodium diet anemia work up >> iron deficiency >> venofer OB stool r/o GI bleed monitor H&H, prn transfusions bowel regime ppi fu labs The patient was seen and examined at bedside and all new and available data was reviewed in the patients chart. I agree with the above findings, impression and plan. (Patient seen earlier today. Signature stamp does not reflect patient encounter time.). - Kelsey Ledesma MD Subjective Subjective limited Objective Last 24 Hour Vital Signs Date Time Temp Pulse Resp B/P (MAP) Pulse Ox O2 Delivery O2 Flow Rate FiO2 09/28/17 07:37 98 20 67 Nasal Cannula 3.0 32 09/28/17 07:36 32 09/28/17 07:21 72 20 95 Nasal Cannula 3.0 32 09/28/17 04:00 63 09/28/17 04:00 97.3 78 21 105/60 90 Nasal Cannula 3.0 97.3 09/28/17 01:16 90 20 94 Nasal Cannula 3.0 32 09/28/17 01:06 32 09/28/17 01:06 90 20 94 Nasal Cannula 3.0 32 09/28/17 00:00 97.5 84 21 132/83 94 Nasal Cannula 3.0 97.5 09/27/17 20:06 90 20 98 Nasal Cannula 3.0 32 09/27/17 20:00 98.0 87 22 133/72 91 Nasal Cannula 3.0 98.0 09/27/17 20:00 75 09/27/17 19:22 32 09/27/17 19:21 90 20 98 Nasal Cannula 3.0 21 09/27/17 16:00 70 09/27/17 13:48 90 20 98 Room Air 21 09/27/17 13:41 88 20 98 Room Air 21 09/27/17 13:41 21 09/27/17 12:00 71 Intake and Output 09/27/17 09/28/17 19:00 07:00 Intake Total 510 ml 510 ml Output Total 900 ml Balance -390 ml 510 ml Intake Oral 510 ml IV Total 510 ml Output Urine Total 900 ml Laboratory Tests Test 09/28/17 04:00 09/28/17 06:27 09/28/17 07:58 Ferritin 38 NG/ML (8-388) Pro-B-Type Natriuretic Peptide 4220 pg/mL (0-125) H Vitamin B12 Level 1676 PG/ML (193-986) H Folate 15.4 NG/ML (8.6-58.9) Reticulocyte Count Pending Prothrombin Time 10.5 SEC (9.30-11.50) Prothromb Time International Ratio 1.0 (0.9-1.1) Activated Partial Thromboplast Time 28 SEC (23-33) Sodium Level 141 MMOL/L (136-145) Potassium Level 4.4 MMOL/L (3.5-5.1) Chloride Level 106 MMOL/L (98-107) Carbon Dioxide Level 30 MMOL/L (21-32) Anion Gap 5 mmol/L (5-15) Blood Urea Nitrogen 22 mg/dL (7-18) H Creatinine 1.2 MG/DL (0.55-1.30) Estimat Glomerular Filtration Rate mL/min (>60) Glucose Level 107 MG/DL (74-106) H Hemoglobin A1c 5.2 % (4.3-6.0) Calcium Level 9.0 MG/DL (8.5-10.1) Phosphorus Level 3.6 MG/DL (2.5-4.9) Magnesium Level 2.3 MG/DL (1.8-2.4) Iron Level 40 ug/dL (50-175) L Total Iron Binding Capacity 322 ug/dL (250-450) Percent Iron Saturation 12 % (15-50) L Unsaturated Iron Binding 282 ug/dL (112-346) Total Bilirubin 0.3 MG/DL (0.2-1.0) Aspartate Amino Transf (AST/SGOT) 29 U/L (15-37) Alanine Aminotransferase (ALT/SGPT) 17 U/L (12-78) Alkaline Phosphatase 57 U/L (46-116) C-Reactive Protein, Quantitative 1.8 mg/dL (0.00-0.90) H Total Protein 6.6 G/DL (6.4-8.2) Albumin 2.8 G/DL (3.4-5.0) L Globulin 3.8 g/dL Albumin/Globulin Ratio 0.7 (1.0-2.7) L Thyroid Stimulating Hormone (TSH) 0.909 uiU/mL (0.358-3.740) Free Thyroxine 1.04 NG/DL (0.76-1.46) White Blood Count 9.4 K/UL (4.8-10.8) Red Blood Count 3.55 M/UL (4.20-5.40) L Hemoglobin 11.4 G/DL (12.0-16.0) L Hematocrit 35.1 % (37.0-47.0) L Mean Corpuscular Volume 99 FL (80-99) Mean Corpuscular Hemoglobin 32.2 PG (27.0-31.0) H Mean Corpuscular Hemoglobin Concent 32.6 G/DL (32.0-36.0) Red Cell Distribution Width 14.8 % (11.6-14.8) Platelet Count 307 K/UL (150-450) Mean Platelet Volume 7.9 FL (6.5-10.1) Neutrophils (%) (Auto) % (45.0-75.0) Lymphocytes (%) (Auto) % (20.0-45.0) Monocytes (%) (Auto) % (1.0-10.0) Eosinophils (%) (Auto) % (0.0-3.0) Basophils (%) (Auto) % (0.0-2.0) Neutrophils % (Manual) Pending Lymphocytes % (Manual) Pending Platelet Estimate Pending Platelet Morphology Pending Height (Feet): 5 Height (Inches): 2.00 Weight (Pounds): 133 General Appearance: alert Cardiovascular: normal rate Respiratory/Chest: normal breath sounds, no respiratory distress Abdominal Exam: normal bowel sounds, non tender, soft Mary Anne Williamson N.P. Sep 28, 2017 11:04 RADHA LEDESMA Oct 04, 2017 11:33
--- NOTE | 2017-09-28 12:59 | Pulmonology Progress Note ---
Assessment/Plan Problems: (1) Pneumonia (2) Parotiditis (3) Dementia Assessment/Plan respiratory treatment check sputum iv abx check cutlrues chest pt titrate fio2 to sat of 92% med/surg Subjective ROS Limited/Unobtainable: No Constitutional: Reports: no symptoms Allergies: Coded Allergies: ACETAMINOPHEN (Verified Allergy, Unknown, 09/26/17) CODEINE (Verified Allergy, Unknown, 09/26/17) HYDROCODONE (Verified Allergy, Unknown, 09/26/17) MORPHINE (Verified Allergy, Unknown, 09/26/17) Uncoded Allergies: tartrazine (Allergy, Unknown, 09/26/17) Objective Last 24 Hour Vital Signs Date Time Temp Pulse Resp B/P (MAP) Pulse Ox O2 Delivery O2 Flow Rate FiO2 09/28/17 08:00 86 09/28/17 08:00 97.0 67 18 102/68 97 Nasal Cannula 3.0 97.0 09/28/17 07:37 98 20 67 Nasal Cannula 3.0 32 09/28/17 07:36 32 09/28/17 07:21 72 20 95 Nasal Cannula 3.0 32 09/28/17 04:00 63 09/28/17 04:00 97.3 78 21 105/60 90 Nasal Cannula 3.0 97.3 09/28/17 01:16 90 20 94 Nasal Cannula 3.0 32 09/28/17 01:06 32 09/28/17 01:06 90 20 94 Nasal Cannula 3.0 32 09/28/17 00:00 97.5 84 21 132/83 94 Nasal Cannula 3.0 97.5 09/27/17 20:06 90 20 98 Nasal Cannula 3.0 32 09/27/17 20:00 98.0 87 22 133/72 91 Nasal Cannula 3.0 98.0 09/27/17 20:00 75 09/27/17 19:22 32 09/27/17 19:21 90 20 98 Nasal Cannula 3.0 21 09/27/17 16:00 70 09/27/17 13:48 90 20 98 Room Air 21 09/27/17 13:41 88 20 98 Room Air 21 09/27/17 13:41 21 Intake and Output 09/27/17 09/28/17 19:00 07:00 Intake Total 510 ml 510 ml Output Total 900 ml Balance -390 ml 510 ml Intake Oral 510 ml IV Total 510 ml Output Urine Total 900 ml Objective General Appearance: WD/WN Lines, tubes and drains: peripheral HEENT: normocephalic, atraumatic Neck: non-tender, normal alignment Respiratory/Chest: chest wall non-tender, lungs rhonchi Cardiovascular/Chest: normal peripheral pulses, normal rate Abdomen: normal bowel sounds, non tender Genitourinary/Rectal: normal genital exam, normal rectal exam Extremities: normal range of motion, non-tender Skin Exam: normal pigmentation 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 Microbiology Date/Time Source Procedure Growth Status 09/26/17 21:50 Blood Blood Culture - Preliminary NO GROWTH AFTER 24 HOURS Resulted 09/26/17 21:35 Blood Blood Culture - Preliminary NO GROWTH AFTER 24 HOURS Resulted 09/26/17 22:45 Nasal Nares Influenza Types A,B Antigen (TATUM) - Final Complete Laboratory Tests 09/28/17 04:00: Ferritin 38, Pro-B-Type Natriuretic Peptide 4220H, Vitamin B12 Level 1676H, Folate 15.4 09/28/17 06:27: Reticulocyte Count 1.4, Prothrombin Time 10.5, Prothromb Time International Ratio 1.0, Activated Partial Thromboplast Time 28, Sodium Level 141, Potassium Level 4.4, Chloride Level 106, Carbon Dioxide Level 30, Anion Gap 5, Blood Urea Nitrogen 22H, Creatinine 1.2, Estimat Glomerular Filtration Rate , Glucose Level 107H, Hemoglobin A1c 5.2, Calcium Level 9.0, Phosphorus Level 3.6, Magnesium Level 2.3, Iron Level 40L, Total Iron Binding Capacity 322, Percent Iron Saturation 12L, Unsaturated Iron Binding 282, Total Bilirubin 0.3, Aspartate Amino Transf (AST/SGOT) 29, Alanine Aminotransferase (ALT/SGPT) 17, Alkaline Phosphatase 57, C-Reactive Protein, Quantitative 1.8H, Total Protein 6.6, Albumin 2.8L, Globulin 3.8, Albumin/Globulin Ratio 0.7L, Thyroid Stimulating Hormone (TSH) 0.909, Free Thyroxine 1.04 09/28/17 07:58: White Blood Count 9.4, Red Blood Count 3.55L, Hemoglobin 11.4L, Hematocrit 35.1L , Mean Corpuscular Volume 99, Mean Corpuscular Hemoglobin 32.2H, Mean Corpuscular Hemoglobin Concent 32.6, Red Cell Distribution Width 14.8, Platelet Count 307, Mean Platelet Volume 7.9, Neutrophils (%) (Auto) , Lymphocytes (%) ( Auto) , Monocytes (%) (Auto) , Eosinophils (%) (Auto) , Basophils (%) (Auto) , Neutrophils % (Manual) [Pending], Lymphocytes % (Manual) [Pending], Platelet Estimate [Pending], Platelet Morphology [Pending] Current Medications Medications (Trade) Dose Ordered Sig/Rambo Route PRN Reason Start Time Stop Time Status Last Admin Dose Admin Acetaminophen (Tylenol) 650 mg Q4H PRN ORAL Mild Pain (Pain Scale 1-3) 09/27/17 04:45 10/27/17 04:44 UNV Albuterol/ Ipratropium (Albuterol/ Ipratropium) 3 ml Q6HRT HHN 09/27/17 07:00 10/02/17 06:59 09/28/17 07:21 Dextrose (Dextrose 50%) STAT PRN IV Hypoglycemia 09/27/17 04:45 10/27/17 04:44 Docusate Sodium (Colace) 100 mg TWICE A DAY ORAL 09/28/17 18:00 10/28/17 17:59 Enoxaparin Sodium (Lovenox) 30 mg Q24H SUBQ 09/27/17 06:00 10/27/17 05:59 09/28/17 05:41 Famotidine (Pepcid) 20 mg BID ORAL 09/27/17 09:00 10/27/17 08:59 09/27/17 18:40 Influenza Virus Vaccine Quadrival (Flu Vaccine Quadrivalent) 0.5 ml ONCE ONCE IM 09/27/17 04:45 09/27/17 04:46 UNV Iron Sucrose 100 mg/Sodium Chloride 60 ml @ 240 mls/hr BEDTIME IV 09/28/17 21:00 09/30/17 21:14 Levofloxacin 50 ml @ 50 mls/hr Q24H IVPB 09/27/17 23:00 10/04/17 22:59 09/27/17 23:59 Lorazepam (Ativan 2mg/ml 1ml) 0.5 mg Q4H PRN IV For Anxiety 09/27/17 18:15 10/04/17 18:14 09/28/17 03:07 Methylprednisolone Sodium Succinate (Solu-MEDROL) 40 mg EVERY 6 HOURS IVP 09/27/17 12:00 10/27/17 11:59 09/28/17 11:01 Nitroglycerin (Ntg) 0.4 mg Q5M PRN SL Prn Chest Pain 09/27/17 04:45 10/27/17 04:44 Pneumococcal Polyvalent Vaccine (Pneumovax) 0.5 ml ONCE ONCE IM 09/27/17 04:45 09/27/17 04:46 UNV Sodium 1,000 ml @ 30 mls/hr Q24H IV 09/27/17 11:00 10/27/17 10:59 09/28/17 11:01 Vancomycin HCl (Vanco rx to dose) 1 ea DAILY PRN MISC Per rx protocol 09/27/17 19:00 10/27/17 18:59 Vancomycin HCl 1 gm/Dextrose 275 ml @ 183.708 mls/hr Q36H IVPB 09/29/17 10:00 10/04/17 23:59 BHAVESH MARION Sep 28, 2017 12:59
[2017-09-28] MEDS ORDERED: Docusate 100mg cap ORAL SCH (18:00)
--- NOTE | 2017-09-28 18:44 | Consultation ---
History of Present Illness General Date patient seen: Sep 27, 2017 Chief Complaint: Dyspnea/Respdistress Referring physician: BHAVESH HUNT Reason for Consultation: ACHALASIA Present Illness HPI 87-year-old female with multiple medical problems, depression and dementia who was admitted to this medical center with weakness and swelling over the left jaw. the pt is confused waxing and waning of consciousness. the pt is not engaged and has cognitive impairment. Allergies: Coded Allergies: ACETAMINOPHEN (Verified Allergy, Unknown, 09/26/17) CODEINE (Verified Allergy, Unknown, 09/26/17) HYDROCODONE (Verified Allergy, Unknown, 09/26/17) MORPHINE (Verified Allergy, Unknown, 09/26/17) Uncoded Allergies: tartrazine (Allergy, Unknown, 09/26/17) Medication History Scheduled Apixaban (Eliquis), 5 MG PO BID, (Reported) Cephalexin* (Cephalexin*), 500 MG ORAL BID, (Reported) Cholecalciferol (Vitamin D3)* (Vitamin D*), 2,000 UNITS ORAL DAILY, (Reported) Cyanocobalamin (Vitamin B-12) (Vitamin B-12), 1,000 MCG PO DAILY, (Reported) Donepezil Hcl* (Donepezil Hcl*), 10 MG ORAL DAILY, (Reported) Ferrous Sulfate* (Ferrous Sulfate*), 325 MG ORAL DAILY, (Reported) Furosemide* (Lasix*), 20 MG ORAL TWICE A DAY, (Reported) Memantine Hcl* (Namenda*), 5 MG ORAL TWICE A DAY, (Reported) Potassium Chloride (Potassium Chloride), 10 MEQ ORAL TWICE A DAY, (Reported) [Atropine Sulfate], 1 % PO THREE TIMES A DAY, (Reported) Patient History Healthcare decision maker Resuscitation status Full Code Advanced Directive on File No Review of Systems Psychiatric: Reports: prior hx, anxiety, depressed feelings Physical Exam General Appearance: no apparent distress, lethargic, confused, agitated Last 24 Hour Vital Signs Date Time Temp Pulse Resp B/P (MAP) Pulse Ox O2 Delivery O2 Flow Rate FiO2 09/28/17 16:00 97.9 90 18 124/80 98 Nasal Cannula 3.0 97.9 09/28/17 13:09 99 20 80 Nasal Cannula 3.0 32 09/28/17 13:09 32 3/8/18 12:57 66 20 94 Nasal Cannula 3.0 32 09/28/17 12:00 97.7 78 18 131/65 97 Nasal Cannula 3.0 97.7 09/28/17 12:00 73 09/28/17 08:00 86 09/28/17 08:00 97.0 67 18 102/68 97 Nasal Cannula 3.0 97.0 09/28/17 07:37 98 20 67 Nasal Cannula 3.0 32 09/28/17 07:36 32 09/28/17 07:21 72 20 95 Nasal Cannula 3.0 32 09/28/17 07:00 Nasal Cannula 3.0 32 09/28/17 07:00 97 Nasal Cannula 3.0 32 09/28/17 04:00 63 09/28/17 04:00 97.3 78 21 105/60 90 Nasal Cannula 3.0 97.3 09/28/17 01:16 90 20 94 Nasal Cannula 3.0 32 09/28/17 01:06 32 09/28/17 01:06 90 20 94 Nasal Cannula 3.0 32 09/28/17 00:00 97.5 84 21 132/83 94 Nasal Cannula 3.0 97.5 09/27/17 20:06 90 20 98 Nasal Cannula 3.0 32 09/27/17 20:00 98.0 87 22 133/72 91 Nasal Cannula 3.0 98.0 09/27/17 20:00 75 09/27/17 19:22 32 09/27/17 19:21 90 20 98 Nasal Cannula 3.0 21 Intake and Output 09/27/17 09/28/17 19:00 07:00 Intake Total 510 ml 510 ml Output Total 900 ml Balance -390 ml 510 ml Intake Oral 510 ml IV Total 510 ml Output Urine Total 900 ml Laboratory Tests Test 09/28/17 04:00 09/28/17 06:27 09/28/17 07:58 Ferritin 38 NG/ML (8-388) Pro-B-Type Natriuretic Peptide 4220 pg/mL (0-125) H Vitamin B12 Level 1676 PG/ML (193-986) H Folate 15.4 NG/ML (8.6-58.9) Reticulocyte Count 1.4 % (0.0-2.0) Prothrombin Time 10.5 SEC (9.30-11.50) Prothromb Time International Ratio 1.0 (0.9-1.1) Activated Partial Thromboplast Time 28 SEC (23-33) Sodium Level 141 MMOL/L (136-145) Potassium Level 4.4 MMOL/L (3.5-5.1) Chloride Level 106 MMOL/L (98-107) Carbon Dioxide Level 30 MMOL/L (21-32) Anion Gap 5 mmol/L (5-15) Blood Urea Nitrogen 22 mg/dL (7-18) H Creatinine 1.2 MG/DL (0.55-1.30) Estimat Glomerular Filtration Rate mL/min (>60) Glucose Level 107 MG/DL (74-106) H Hemoglobin A1c 5.2 % (4.3-6.0) Calcium Level 9.0 MG/DL (8.5-10.1) Phosphorus Level 3.6 MG/DL (2.5-4.9) Magnesium Level 2.3 MG/DL (1.8-2.4) Iron Level 40 ug/dL (50-175) L Total Iron Binding Capacity 322 ug/dL (250-450) Percent Iron Saturation 12 % (15-50) L Unsaturated Iron Binding 282 ug/dL (112-346) Total Bilirubin 0.3 MG/DL (0.2-1.0) Aspartate Amino Transf (AST/SGOT) 29 U/L (15-37) Alanine Aminotransferase (ALT/SGPT) 17 U/L (12-78) Alkaline Phosphatase 57 U/L (46-116) C-Reactive Protein, Quantitative 1.8 mg/dL (0.00-0.90) H Total Protein 6.6 G/DL (6.4-8.2) Albumin 2.8 G/DL (3.4-5.0) L Globulin 3.8 g/dL Albumin/Globulin Ratio 0.7 (1.0-2.7) L Thyroid Stimulating Hormone (TSH) 0.909 uiU/mL (0.358-3.740) Free Thyroxine 1.04 NG/DL (0.76-1.46) White Blood Count 9.4 K/UL (4.8-10.8) Red Blood Count 3.55 M/UL (4.20-5.40) L Hemoglobin 11.4 G/DL (12.0-16.0) L Hematocrit 35.1 % (37.0-47.0) L Mean Corpuscular Volume 99 FL (80-99) Mean Corpuscular Hemoglobin 32.2 PG (27.0-31.0) H Mean Corpuscular Hemoglobin Concent 32.6 G/DL (32.0-36.0) Red Cell Distribution Width 14.8 % (11.6-14.8) Platelet Count 307 K/UL (150-450) Mean Platelet Volume 7.9 FL (6.5-10.1) Neutrophils (%) (Auto) % (45.0-75.0) Lymphocytes (%) (Auto) % (20.0-45.0) Monocytes (%) (Auto) % (1.0-10.0) Eosinophils (%) (Auto) % (0.0-3.0) Basophils (%) (Auto) % (0.0-2.0) Differential Total Cells Counted 100 Neutrophils % (Manual) 94 % (45-75) H Lymphocytes % (Manual) 4 % (20-45) L Monocytes % (Manual) 1 % (1-10) Eosinophils % (Manual) 0 % (0-3) Basophils % (Manual) 0 % (0-2) Band Neutrophils 1 % (0-8) Platelet Estimate Adequate Platelet Morphology Normal Macrocytosis 1+ Height (Feet): 5 Height (Inches): 2.00 Weight (Pounds): 133 Medications Current Medications Medications (Trade) Dose Ordered Sig/Rambo Route PRN Reason Start Time Stop Time Status Last Admin Dose Admin Albuterol/ Ipratropium (Albuterol/ Ipratropium) 3 ml Q6HRT HHN 09/27/17 07:00 10/02/17 06:59 09/28/17 12:57 Dextrose (Dextrose 50%) STAT PRN IV Hypoglycemia 09/27/17 04:45 10/27/17 04:44 Docusate Sodium (Colace) 100 mg TWICE A DAY ORAL 09/28/17 18:00 10/28/17 17:59 09/28/17 17:38 Enoxaparin Sodium (Lovenox) 30 mg Q24H SUBQ 09/27/17 06:00 10/27/17 05:59 09/28/17 05:41 Famotidine (Pepcid) 20 mg BID ORAL 09/27/17 09:00 10/27/17 08:59 09/28/17 17:37 Influenza Virus Vaccine Quadrival (Flu Vaccine Quadrivalent) 0.5 ml ONCE ONCE IM 09/27/17 04:45 09/27/17 04:46 UNV Iron Sucrose 100 mg/Sodium Chloride 60 ml @ 240 mls/hr BEDTIME IV 09/28/17 21:00 09/30/17 21:14 Levofloxacin 50 ml @ 50 mls/hr Q24H IVPB 09/27/17 23:00 10/04/17 22:59 09/27/17 23:59 Lorazepam (Ativan 2mg/ml 1ml) 0.5 mg Q4H PRN IV For Anxiety 09/27/17 18:15 10/04/17 18:14 09/28/17 16:05 Methylprednisolone Sodium Succinate (Solu-MEDROL) 40 mg EVERY 6 HOURS IVP 09/27/17 12:00 10/27/17 11:59 09/28/17 17:37 Nitroglycerin (Ntg) 0.4 mg Q5M PRN SL Prn Chest Pain 09/27/17 04:45 10/27/17 04:44 Pneumococcal Polyvalent Vaccine (Pneumovax) 0.5 ml ONCE ONCE IM 09/27/17 04:45 09/27/17 04:46 UNV Sodium 1,000 ml @ 30 mls/hr Q24H IV 09/27/17 11:00 10/27/17 10:59 09/28/17 11:01 Vancomycin HCl (Vanco rx to dose) 1 ea DAILY PRN MISC Per rx protocol 09/27/17 19:00 10/27/17 18:59 Vancomycin HCl 1 gm/Dextrose 275 ml @ 183.708 mls/hr Q36H IVPB 09/29/17 13:00 10/04/17 12:59 Assessment/Plan Status: unchanged Assessment/Plan mdd dementia with behavioral dist -zyprexa 2.5mg qhs/prn Shane Garcia M.D. Sep 28, 2017 18:44
--- NOTE | 2017-09-28 18:53 | General Progress Note ---
Assessment/Plan Assessment/Plan mdd dementia with behavioral dist -zyprexa 2.5mg qhs/prn Subjective Date patient seen: Sep 28, 2017 Neurologic/Psychiatric: Reports: anxiety, depressed, emotional problems Allergies: Coded Allergies: ACETAMINOPHEN (Verified Allergy, Unknown, 09/26/17) CODEINE (Verified Allergy, Unknown, 09/26/17) HYDROCODONE (Verified Allergy, Unknown, 09/26/17) MORPHINE (Verified Allergy, Unknown, 09/26/17) Uncoded Allergies: tartrazine (Allergy, Unknown, 09/26/17) Objective Last 24 Hour Vital Signs Date Time Temp Pulse Resp B/P (MAP) Pulse Ox O2 Delivery O2 Flow Rate FiO2 09/28/17 16:00 97.9 90 18 124/80 98 Nasal Cannula 3.0 97.9 09/28/17 13:09 99 20 80 Nasal Cannula 3.0 32 09/28/17 13:09 32 09/28/17 12:57 66 20 94 Nasal Cannula 3.0 32 09/28/17 12:00 97.7 78 18 131/65 97 Nasal Cannula 3.0 97.7 09/28/17 12:00 73 09/28/17 08:00 86 09/28/17 08:00 97.0 67 18 102/68 97 Nasal Cannula 3.0 97.0 09/28/17 07:37 98 20 67 Nasal Cannula 3.0 32 09/28/17 07:36 32 09/28/17 07:21 72 20 95 Nasal Cannula 3.0 32 09/28/17 07:00 Nasal Cannula 3.0 32 09/28/17 07:00 97 Nasal Cannula 3.0 32 09/28/17 04:00 63 09/28/17 04:00 97.3 78 21 105/60 90 Nasal Cannula 3.0 97.3 09/28/17 01:16 90 20 94 Nasal Cannula 3.0 32 09/28/17 01:06 32 09/28/17 01:06 90 20 94 Nasal Cannula 3.0 32 09/28/17 00:00 97.5 84 21 132/83 94 Nasal Cannula 3.0 97.5 09/27/17 20:06 90 20 98 Nasal Cannula 3.0 32 09/27/17 20:00 98.0 87 22 133/72 91 Nasal Cannula 3.0 98.0 09/27/17 20:00 75 09/27/17 19:22 32 09/27/17 19:21 90 20 98 Nasal Cannula 3.0 21 Intake and Output 09/27/17 09/28/17 19:00 07:00 Intake Total 510 ml 510 ml Output Total 900 ml Balance -390 ml 510 ml Intake Oral 510 ml IV Total 510 ml Output Urine Total 900 ml Laboratory Tests 09/28/17 04:00: Ferritin 38, Pro-B-Type Natriuretic Peptide 4220H, Vitamin B12 Level 1676H, Folate 15.4 09/28/17 06:27: Reticulocyte Count 1.4, Prothrombin Time 10.5, Prothromb Time International Ratio 1.0, Activated Partial Thromboplast Time 28, Sodium Level 141, Potassium Level 4.4, Chloride Level 106, Carbon Dioxide Level 30, Anion Gap 5, Blood Urea Nitrogen 22H, Creatinine 1.2, Estimat Glomerular Filtration Rate , Glucose Level 107H, Hemoglobin A1c 5.2, Calcium Level 9.0, Phosphorus Level 3.6, Magnesium Level 2.3, Iron Level 40L, Total Iron Binding Capacity 322, Percent Iron Saturation 12L, Unsaturated Iron Binding 282, Total Bilirubin 0.3, Aspartate Amino Transf (AST/SGOT) 29, Alanine Aminotransferase (ALT/SGPT) 17, Alkaline Phosphatase 57, C-Reactive Protein, Quantitative 1.8H, Total Protein 6.6, Albumin 2.8L, Globulin 3.8, Albumin/Globulin Ratio 0.7L, Thyroid Stimulating Hormone (TSH) 0.909, Free Thyroxine 1.04 09/28/17 07:58: White Blood Count 9.4, Red Blood Count 3.55L, Hemoglobin 11.4L, Hematocrit 35.1L , Mean Corpuscular Volume 99, Mean Corpuscular Hemoglobin 32.2H, Mean Corpuscular Hemoglobin Concent 32.6, Red Cell Distribution Width 14.8, Platelet Count 307, Mean Platelet Volume 7.9, Neutrophils (%) (Auto) , Lymphocytes (%) ( Auto) , Monocytes (%) (Auto) , Eosinophils (%) (Auto) , Basophils (%) (Auto) , Differential Total Cells Counted 100, Neutrophils % (Manual) 94H, Lymphocytes % (Manual) 4L, Monocytes % (Manual) 1, Eosinophils % (Manual) 0, Basophils % ( Manual) 0, Band Neutrophils 1, Platelet Estimate Adequate, Platelet Morphology Normal, Macrocytosis 1+ Height (Feet): 5 Height (Inches): 2.00 Weight (Pounds): 133 General Appearance: no apparent distress, lethargic, confused Shane Garcia M.D. Sep 28, 2017 18:53
--- NOTE | 2017-09-28 19:06 | Infectious Diseases Prog Note ---
Assessment/Plan Assessment/Plan ASSESSMENT: The patient is an 87-year-old female with, Leukocytosis, improved Left parotitis Facial CT suggestive of left parotitis No evidence of pneumonia CT of the chest, no evidence of PE or infiltrate Afebrile. Rapid influenza A/B negative. . Dementia. History of pulmonary emboli History of back pain Depression PLAN: Cont patient on IV vancomycin and Levaquin d# 2 Monitor CBC. Monitor BMP. Monitor chest x-ray. Monitor cultures (blood). Subjective Constitutional: Denies: no symptoms, fever, chills, fatigue, anorexia, drenching sweats, other Allergies: Coded Allergies: ACETAMINOPHEN (Verified Allergy, Unknown, 09/26/17) CODEINE (Verified Allergy, Unknown, 09/26/17) HYDROCODONE (Verified Allergy, Unknown, 09/26/17) MORPHINE (Verified Allergy, Unknown, 09/26/17) Uncoded Allergies: tartrazine (Allergy, Unknown, 09/26/17) Objective Vital Signs Last 24 Hour Vital Signs Date Time Temp Pulse Resp B/P (MAP) Pulse Ox O2 Delivery O2 Flow Rate FiO2 09/28/17 16:00 97.9 90 18 124/80 98 Nasal Cannula 3.0 97.9 09/28/17 16:00 81 09/28/17 13:09 99 20 80 Nasal Cannula 3.0 32 09/28/17 13:09 32 09/28/17 12:57 66 20 94 Nasal Cannula 3.0 32 09/28/17 12:00 97.7 78 18 131/65 97 Nasal Cannula 3.0 97.7 09/28/17 12:00 73 09/28/17 08:00 86 09/28/17 08:00 97.0 67 18 102/68 97 Nasal Cannula 3.0 97.0 09/28/17 07:37 98 20 67 Nasal Cannula 3.0 32 09/28/17 07:36 32 09/28/17 07:21 72 20 95 Nasal Cannula 3.0 32 09/28/17 07:00 Nasal Cannula 3.0 32 09/28/17 07:00 97 Nasal Cannula 3.0 32 09/28/17 04:00 63 09/28/17 04:00 97.3 78 21 105/60 90 Nasal Cannula 3.0 97.3 09/28/17 01:16 90 20 94 Nasal Cannula 3.0 32 09/28/17 01:06 32 09/28/17 01:06 90 20 94 Nasal Cannula 3.0 32 09/28/17 00:00 97.5 84 21 132/83 94 Nasal Cannula 3.0 97.5 09/27/17 20:06 90 20 98 Nasal Cannula 3.0 32 09/27/17 20:00 98.0 87 22 133/72 91 Nasal Cannula 3.0 98.0 09/27/17 20:00 75 09/27/17 19:22 32 09/27/17 19:21 90 20 98 Nasal Cannula 3.0 21 Height (Feet): 5 Height (Inches): 2.00 Weight (Pounds): 133 HEENT: anicteric Respiratory/Chest: no respiratory distress Cardiovascular: regular rhythm Abdomen: normal bowel sounds, non distended Microbiology Date/Time Source Procedure Growth Status 09/26/17 21:50 Blood Blood Culture - Preliminary NO GROWTH AFTER 24 HOURS Resulted 09/26/17 21:35 Blood Blood Culture - Preliminary NO GROWTH AFTER 24 HOURS Resulted 09/26/17 22:45 Nasal Nares Influenza Types A,B Antigen (TATUM) - Final Complete Laboratory Tests Test 09/28/17 04:00 09/28/17 06:27 09/28/17 07:58 Ferritin 38 NG/ML (8-388) Pro-B-Type Natriuretic Peptide 4220 pg/mL (0-125) H Vitamin B12 Level 1676 PG/ML (193-986) H Folate 15.4 NG/ML (8.6-58.9) Reticulocyte Count 1.4 % (0.0-2.0) Prothrombin Time 10.5 SEC (9.30-11.50) Prothromb Time International Ratio 1.0 (0.9-1.1) Activated Partial Thromboplast Time 28 SEC (23-33) Sodium Level 141 MMOL/L (136-145) Potassium Level 4.4 MMOL/L (3.5-5.1) Chloride Level 106 MMOL/L (98-107) Carbon Dioxide Level 30 MMOL/L (21-32) Anion Gap 5 mmol/L (5-15) Blood Urea Nitrogen 22 mg/dL (7-18) H Creatinine 1.2 MG/DL (0.55-1.30) Estimat Glomerular Filtration Rate mL/min (>60) Glucose Level 107 MG/DL (74-106) H Hemoglobin A1c 5.2 % (4.3-6.0) Calcium Level 9.0 MG/DL (8.5-10.1) Phosphorus Level 3.6 MG/DL (2.5-4.9) Magnesium Level 2.3 MG/DL (1.8-2.4) Iron Level 40 ug/dL (50-175) L Total Iron Binding Capacity 322 ug/dL (250-450) Percent Iron Saturation 12 % (15-50) L Unsaturated Iron Binding 282 ug/dL (112-346) Total Bilirubin 0.3 MG/DL (0.2-1.0) Aspartate Amino Transf (AST/SGOT) 29 U/L (15-37) Alanine Aminotransferase (ALT/SGPT) 17 U/L (12-78) Alkaline Phosphatase 57 U/L (46-116) C-Reactive Protein, Quantitative 1.8 mg/dL (0.00-0.90) H Total Protein 6.6 G/DL (6.4-8.2) Albumin 2.8 G/DL (3.4-5.0) L Globulin 3.8 g/dL Albumin/Globulin Ratio 0.7 (1.0-2.7) L Thyroid Stimulating Hormone (TSH) 0.909 uiU/mL (0.358-3.740) Free Thyroxine 1.04 NG/DL (0.76-1.46) White Blood Count 9.4 K/UL (4.8-10.8) Red Blood Count 3.55 M/UL (4.20-5.40) L Hemoglobin 11.4 G/DL (12.0-16.0) L Hematocrit 35.1 % (37.0-47.0) L Mean Corpuscular Volume 99 FL (80-99) Mean Corpuscular Hemoglobin 32.2 PG (27.0-31.0) H Mean Corpuscular Hemoglobin Concent 32.6 G/DL (32.0-36.0) Red Cell Distribution Width 14.8 % (11.6-14.8) Platelet Count 307 K/UL (150-450) Mean Platelet Volume 7.9 FL (6.5-10.1) Neutrophils (%) (Auto) % (45.0-75.0) Lymphocytes (%) (Auto) % (20.0-45.0) Monocytes (%) (Auto) % (1.0-10.0) Eosinophils (%) (Auto) % (0.0-3.0) Basophils (%) (Auto) % (0.0-2.0) Differential Total Cells Counted 100 Neutrophils % (Manual) 94 % (45-75) H Lymphocytes % (Manual) 4 % (20-45) L Monocytes % (Manual) 1 % (1-10) Eosinophils % (Manual) 0 % (0-3) Basophils % (Manual) 0 % (0-2) Band Neutrophils 1 % (0-8) Platelet Estimate Adequate Platelet Morphology Normal Macrocytosis 1+ Current Medications Medications (Trade) Dose Ordered Sig/Rambo Route PRN Reason Start Time Stop Time Status Last Admin Dose Admin Albuterol/ Ipratropium (Albuterol/ Ipratropium) 3 ml Q6HRT HHN 09/27/17 07:00 10/02/17 06:59 09/28/17 12:57 Dextrose (Dextrose 50%) STAT PRN IV Hypoglycemia 09/27/17 04:45 10/27/17 04:44 Docusate Sodium (Colace) 100 mg TWICE A DAY ORAL 09/28/17 18:00 10/28/17 17:59 09/28/17 17:38 Enoxaparin Sodium (Lovenox) 30 mg Q24H SUBQ 09/27/17 06:00 10/27/17 05:59 09/28/17 05:41 Famotidine (Pepcid) 20 mg BID ORAL 09/27/17 09:00 10/27/17 08:59 09/28/17 17:37 Influenza Virus Vaccine Quadrival (Flu Vaccine Quadrivalent) 0.5 ml ONCE ONCE IM 09/27/17 04:45 09/27/17 04:46 UNV Iron Sucrose 100 mg/Sodium Chloride 60 ml @ 240 mls/hr BEDTIME IV 09/28/17 21:00 09/30/17 21:14 Levofloxacin 50 ml @ 50 mls/hr Q24H IVPB 09/27/17 23:00 10/04/17 22:59 09/27/17 23:59 Lorazepam (Ativan 2mg/ml 1ml) 0.5 mg Q4H PRN IV For Anxiety 09/27/17 18:15 10/04/17 18:14 09/28/17 16:05 Methylprednisolone Sodium Succinate (Solu-MEDROL) 40 mg EVERY 6 HOURS IVP 09/27/17 12:00 10/27/17 11:59 09/28/17 17:37 Nitroglycerin (Ntg) 0.4 mg Q5M PRN SL Prn Chest Pain 09/27/17 04:45 10/27/17 04:44 Pneumococcal Polyvalent Vaccine (Pneumovax) 0.5 ml ONCE ONCE IM 09/27/17 04:45 09/27/17 04:46 UNV Sodium 1,000 ml @ 30 mls/hr Q24H IV 09/27/17 11:00 10/27/17 10:59 09/28/17 11:01 Vancomycin HCl (Vanco rx to dose) 1 ea DAILY PRN MISC Per rx protocol 09/27/17 19:00 10/27/17 18:59 Vancomycin HCl 1 gm/Dextrose 275 ml @ 183.708 mls/hr Q36H IVPB 09/29/17 13:00 10/04/17 12:59 NATE RAMOS M.D. Sep 28, 2017 19:06
[2017-09-28] MEDS ORDERED: Flu Vaccine Quadrivalent 0.5ml IM ONE (20:45)
[2017-09-28] MEDS ORDERED: Nitroglycerin Subl 0.4mg tab SL PRN (20:45)
[2017-09-28] MEDS ORDERED: 1/2NS w/KCl 20mEq 1000ml 1,000 ML IV SCH (20:45)
[2017-09-28] MEDS ORDERED: Pneumococcal Vaccine 25mcg/0.5ml IM ONE (20:45)
[2017-09-28] MEDS ORDERED: Iron Sucrose 100 MG in NS 55 ML IV SCH ×4 (21:00)
[2017-09-28] MEDS ORDERED: LORazepam Inj 2mg/ml 1ml IV PRN (22:15)
[2017-09-28] MEDS: Levofloxacin 250mg/D5W 50ml IVPB SCH (22:32)
[2017-09-29] VITALS (12 sets, daily range): BP systolic 115–149; BP diastolic 54–106
[2017-09-29] MEDS: Solu-MEDROL 40mg Inj IVP SCH ×4 (00:20→18:32)
[2017-09-29] MEDS ORDERED: Enoxaparin 30mg Inj SUBQ SCH (06:00)
[2017-09-29 07:40] LABS: HEMATOCRIT 35.8 % (37.0-47.0); HEMOGLOBIN 11.6 G/DL (12.0-16.0); MEAN CORPUSCULAR VOLUME 98 FL (80-99); PLATELET COUNT 318 K/UL (150-450); RED BLOOD COUNT 3.64 M/UL (4.20-5.40); WHITE BLOOD COUNT 13.9 K/UL (4.8-10.8)
[2017-09-29 07:52] LABS: PHOSPHORUS 3.7 MG/DL (2.5-4.9)
[2017-09-29 07:53] LABS: ALANINE AMINOTRANSFERASE 18 U/L (12-78); ALBUMIN 2.6 G/DL (3.4-5.0); ALBUMIN/GLOBULIN RATIO 0.7 (1.0-2.7); ALKALINE PHOSPHATASE 54 U/L (46-116); ANION GAP 5 mmol/L (5-15); ASPARTATE AMINO TRANSFERASE 22 U/L (15-37); BILIRUBIN,TOTAL 0.1 MG/DL (0.2-1.0); BLOOD UREA NITROGEN 28 mg/dL (7-18); CALCIUM 8.4 MG/DL (8.5-10.1); CARBON DIOXIDE 29 MMOL/L (21-32); CHLORIDE 108 MMOL/L (98-107); CREATININE 1.4 MG/DL (0.55-1.30); POTASSIUM 5.3 MMOL/L (3.5-5.1); SODIUM 142 MMOL/L (136-145)
[2017-09-29] MEDS: Albuterol/Ipratropium 3ml neb HHN SCH ×3 (08:14→19:47)
--- NOTE | 2017-09-29 08:40 | Pre-Procedure Note/Attestation ---
Pre-Procedure Note/Attestation Complete Prior to Procedure Planned Procedure: not applicable Procedure Narrative: egd Indications for Procedure Pre-Operative Diagnosis: dysphagia Attestation I attest that I discussed the nature of the procedure; its benefits; risks and complications; and alternatives (and the risks and benefits of such alternatives ), prior to the procedure, with the patient (or the patient's legal outside medical sales representative). I attest that, if there was a reasonable possibility of needing a blood transfusion, the patient (or the patient's legal outside medical sales representative) was given the [facility] standardized written summary, pursuant to the [place] Blood Safety Act ([place] Health and Safety Code # 1645, as amended). I attest that I re-evaluated the patient just prior to the surgery and that there has been no change in the patient's H&P, except as documented below: RADHA DRAPER Sep 29, 2017 08:40
--- NOTE | 2017-09-29 08:41 | General Progress Note ---
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 - Achalasia of cardia SNOMED: 94867643 (2) Dyspnea ICD Codes: R06.00 - Dyspnea, unspecified SNOMED: 088732077 (3) Encephalitis ICD Codes: G04.90 - Encephalitis and encephalomyelitis, unspecified SNOMED: 51270866 Assessment/Plan plan EGD today Subjective ROS Limited/Unobtainable: Yes Allergies: Coded Allergies: ACETAMINOPHEN (Verified Allergy, Unknown, 09/26/17) CODEINE (Verified Allergy, Unknown, 09/26/17) HYDROCODONE (Verified Allergy, Unknown, 09/26/17) MORPHINE (Verified Allergy, Unknown, 09/26/17) Uncoded Allergies: tartrazine (Allergy, Unknown, 09/26/17) Subjective no event Objective Last 24 Hour Vital Signs Date Time Temp Pulse Resp B/P (MAP) Pulse Ox O2 Delivery O2 Flow Rate FiO2 09/29/17 08:14 77 18 95 Nasal Cannula 2.0 28 09/29/17 08:00 97.6 78 17 145/64 99 Nasal Cannula 3.0 97.6 09/29/17 04:00 98 Nasal Cannula 3.0 09/29/17 03:27 97.6 74 22 119/59 98 Nasal Cannula 97.6 09/29/17 00:00 97.7 79 19 123/54 99 Nasal Cannula 97.7 09/29/17 00:00 99 Nasal Cannula 3.0 09/28/17 23:59 75 18 95 Nasal Cannula 2.0 28 09/28/17 23:52 28 09/28/17 23:51 75 18 95 Nasal Cannula 2.0 28 09/28/17 21:54 97.7 75 18 108/56 97 Nasal Cannula 2.0 97.7 09/28/17 20:00 97 Nasal Cannula 3.0 09/28/17 20:00 97.7 75 18 108/56 97 Nasal Cannula 2.0 97.7 09/28/17 19:54 79 18 99 Nasal Cannula 3.0 32 09/28/17 19:44 83 20 94 Nasal Cannula 3.0 32 09/28/17 19:44 Nasal Cannula 3.0 32 09/28/17 19:44 94 Nasal Cannula 3.0 32 09/28/17 19:44 32 09/28/17 16:00 97.9 90 18 124/80 98 Nasal Cannula 3.0 97.9 09/28/17 16:00 81 09/28/17 13:09 99 20 80 Nasal Cannula 3.0 32 09/28/17 13:09 32 09/28/17 12:57 66 20 94 Nasal Cannula 3.0 32 09/28/17 12:00 97.7 78 18 131/65 97 Nasal Cannula 3.0 97.7 09/28/17 12:00 73 Intake and Output 09/28/17 09/29/17 19:00 07:00 Intake Total 350 ml Output Total 300 ml Balance 350 ml -300 ml Intake Oral 350 ml Output Urine Total 300 ml # Voids 1 Laboratory Tests 09/29/17 07:12: White Blood Count 13.9H, Red Blood Count 3.64L, Hemoglobin 11.6L, Hematocrit 35.8L, Mean Corpuscular Volume 98, Mean Corpuscular Hemoglobin 31.8H, Mean Corpuscular Hemoglobin Concent 32.3, Red Cell Distribution Width 15.0H, Platelet Count 318, Mean Platelet Volume 8.5, Neutrophils (%) (Auto) , Lymphocytes (%) (Auto) , Monocytes (%) (Auto) , Eosinophils (%) (Auto) , Basophils (%) (Auto) , Neutrophils % (Manual) [Pending], Lymphocytes % (Manual) [Pending], Platelet Estimate [Pending], Platelet Morphology [Pending], Erythrocyte Sedimentation Rate [Pending], Prothrombin Time 10.0, Prothromb Time International Ratio 1.0, Activated Partial Thromboplast Time 26, Sodium Level 142, Potassium Level 5.3H, Chloride Level 108H, Carbon Dioxide Level 29, Anion Gap 5, Blood Urea Nitrogen 28H, Creatinine 1.4H, Estimat Glomerular Filtration Rate , Glucose Level 131H, Calcium Level 8.4L, Phosphorus Level 3.7, Magnesium Level 2.4, Total Bilirubin 0.1L, Aspartate Amino Transf (AST/SGOT) 22, Alanine Aminotransferase (ALT/SGPT) 18, Alkaline Phosphatase 54, Total Protein 6.3L, Albumin 2.6L, Globulin 3.7, Albumin/Globulin Ratio 0.7L Height (Feet): 5 Height (Inches): 2.00 Weight (Pounds): 133 General Appearance: no apparent distress EENT: normal ENT inspection Neck: supple Cardiovascular: normal rate Respiratory/Chest: decreased breath sounds Abdomen: normal bowel sounds, non tender, soft Extremities: non-tender RADHA DRAPER Sep 29, 2017 08:41
[2017-09-29] MEDS ORDERED: Docusate 100mg cap ORAL SCH ×2 (09:00→18:00)
[2017-09-29] MEDS ORDERED: NS 500ML IV ONE (09:50)
[2017-09-29] MEDS ORDERED: LR 1000ml ONE (10:00)
[2017-09-29] MEDS ORDERED: Lidocaine 1% MPF 10mg/ml 5ml ONE (10:00)
[2017-09-29] MEDS ORDERED: Propofol 200mg/20ml IV ONE (10:00)
--- NOTE | 2017-09-29 10:08 | Anethesia Preoperative Eval ---
Anesthesia Pre-op PMH/ROS General Date of Evaluation: Sep 29, 2017 Time of Evaluation: 10:03 Anesthesiologist: Shante ASA Score: ASA 3 Mallampati Score Class I : Soft palate, uvula, fauces, pillars visible Class II: Soft palate, uvula, fauces visible Class III: Soft palate, base of uvula visible Class IV: Only hard plate visible Mallampati Classification: Class III Surgeon: Callie Diagnosis: Achlasia Surgical Procedure: EGD Anesthesia History: none Family History: no anesthesia problems Allergies: Coded Allergies: ACETAMINOPHEN (Verified Allergy, Unknown, 09/26/17) CODEINE (Verified Allergy, Unknown, 09/26/17) HYDROCODONE (Verified Allergy, Unknown, 09/26/17) MORPHINE (Verified Allergy, Unknown, 09/26/17) Uncoded Allergies: tartrazine (Allergy, Unknown, 09/26/17) Medications: see eMAR Past Medical History Cardiovascular: Reports: HTN, Denies: CAD, [place], valve dz, arrhythmia, other Pulmonary: Reports: COPD, Denies: asthma, [place], other Neurologic/Psychiatric: Reports: dementia HEENT: Denies: cataract (L), cataract (R), glaucoma, [place] (L), [place] (R), other Hematology/Immune: Denies: anemia, DVT, bleeding disorder, other Musculoskeletal/Integumentary: Denies: OA, RA, DJD, DDD, edema, other PSxH Narrative: unknown Anesthesia Pre-op Phys. Exam Physician Exam Last Vital Signs Date Time Temp Pulse Resp B/P (MAP) Pulse Ox O2 Delivery O2 Flow Rate FiO2 09/29/17 08:59 78 18 95 Nasal Cannula 2.0 28 09/29/17 08:00 97.6 145/64 97.6 Constitutional: NAD Neurologic: other - demented Cardiovascular: RRR Respiratory: CTA Gastrointestinal: S/NT/ND Airway Exam Mallampati Classification 3 Mallampati Score: Class II MO: limited ROM: limited Dentures: upper, lower Anesthesia Pre-op A/P Labs Hematology Test 09/29/17 07:12 White Blood Count 13.9 K/UL (4.8-10.8) H Red Blood Count 3.64 M/UL (4.20-5.40) L Hemoglobin 11.6 G/DL (12.0-16.0) L Hematocrit 35.8 % (37.0-47.0) L Mean Corpuscular Volume 98 FL (80-99) Mean Corpuscular Hemoglobin 31.8 PG (27.0-31.0) H Mean Corpuscular Hemoglobin Concent 32.3 G/DL (32.0-36.0) Red Cell Distribution Width 15.0 % (11.6-14.8) H Platelet Count 318 K/UL (150-450) Mean Platelet Volume 8.5 FL (6.5-10.1) Neutrophils (%) (Auto) % (45.0-75.0) Lymphocytes (%) (Auto) % (20.0-45.0) Monocytes (%) (Auto) % (1.0-10.0) Eosinophils (%) (Auto) % (0.0-3.0) Basophils (%) (Auto) % (0.0-2.0) Differential Total Cells Counted 100 Neutrophils % (Manual) 96 % (45-75) H Lymphocytes % (Manual) 4 % (20-45) L Monocytes % (Manual) 0 % (1-10) L Eosinophils % (Manual) 0 % (0-3) Basophils % (Manual) 0 % (0-2) Band Neutrophils 0 % (0-8) Platelet Estimate Adequate Platelet Morphology Normal Hypochromasia 1+ Anisocytosis 1+ Erythrocyte Sedimentation Rate 44 MM/HR (0-42) H Coagulation Test 09/29/17 07:12 Prothrombin Time 10.0 SEC (9.30-11.50) Prothromb Time International Ratio 1.0 (0.9-1.1) Activated Partial Thromboplast Time 26 SEC (23-33) Chemistry Test 09/29/17 07:12 Sodium Level 142 MMOL/L (136-145) Potassium Level 5.3 MMOL/L (3.5-5.1) H Chloride Level 108 MMOL/L (98-107) H Carbon Dioxide Level 29 MMOL/L (21-32) Anion Gap 5 mmol/L (5-15) Blood Urea Nitrogen 28 mg/dL (7-18) H Creatinine 1.4 MG/DL (0.55-1.30) H Estimat Glomerular Filtration Rate mL/min (>60) Glucose Level 131 MG/DL (74-106) H Calcium Level 8.4 MG/DL (8.5-10.1) L Phosphorus Level 3.7 MG/DL (2.5-4.9) Magnesium Level 2.4 MG/DL (1.8-2.4) Total Bilirubin 0.1 MG/DL (0.2-1.0) L Aspartate Amino Transf (AST/SGOT) 22 U/L (15-37) Alanine Aminotransferase (ALT/SGPT) 18 U/L (12-78) Alkaline Phosphatase 54 U/L (46-116) Total Protein 6.3 G/DL (6.4-8.2) L Albumin 2.6 G/DL (3.4-5.0) L Globulin 3.7 g/dL Albumin/Globulin Ratio 0.7 (1.0-2.7) L Studies Pre-op Studies: EKG - sr Risk Assessment & Plan Plan: mac Pre-Antibiotics Drug: none HERBIE CASTILLO CRNA Sep 29, 2017 10:08
--- NOTE | 2017-09-29 10:09 | General Progress Note ---
Assessment/Plan Assessment/Plan 1. Chronic obstructive pulmonary disease exacerbation. --> To be seen by Pulmonary team. We started her on Keflex. --> Closely monitor. Pulmonary treatments have been started. 2. Pneumonia history, status post treatment in the past with antibiotics. --> I have consulted ID Service as well. 3. Tremor, shaking, unsure if this was a seizure episode and I have consulted the patient with Neurology, Dr. Mendes. 4. Dementia. Closely monitor. Neurology Service to see if the patient needs to start any medications. --> CT scan of the head did not show any acute intracranial pathology. 5. Left pleural effusion, to be seen again by Dr. Gandhi. Subjective Date patient seen: Sep 28, 2017 Constitutional: Denies: no symptoms, chills, diaphoresis, fever, malaise, weakness, other HEENT: Denies: no symptoms, eye pain, blurred vision, tearing, double vision, ear pain, ear discharge, nose pain, nose congestion, throat pain, throat swelling, mouth pain, mouth swelling, other Cardiovascular: Denies: no symptoms, chest pain, edema, irregular heart rate, lightheadedness, palpitations, syncope, other Respiratory: Denies: no symptoms, cough, orthopnea, shortness of breath, SOB with excertion, SOB at rest, sputum, stridor, wheezing, other Gastrointestinal/Abdominal: Denies: no symptoms, abdomen distended, abdominal pain, black stools, tarry stools, blood in stool, constipated, diarrhea, difficulty swallowing, nausea, poor appetite, poor fluid intake, rectal bleeding , vomiting, other Genitourinary: Denies: no symptoms, burning, discharge, frequency, flank pain, hematuria, incontinence, pain, urgency, other Neurologic/Psychiatric: Denies: no symptoms, anxiety, depressed, emotional problems, headache, numbness, paresthesia, pre-existing deficit, seizure, tingling, tremors, weakness, other Allergies: Coded Allergies: ACETAMINOPHEN (Verified Allergy, Unknown, 09/26/17) CODEINE (Verified Allergy, Unknown, 09/26/17) HYDROCODONE (Verified Allergy, Unknown, 09/26/17) MORPHINE (Verified Allergy, Unknown, 09/26/17) Uncoded Allergies: tartrazine (Allergy, Unknown, 09/26/17) Subjective No acute events. Resting in bed. Objective Last 24 Hour Vital Signs Date Time Temp Pulse Resp B/P (MAP) Pulse Ox O2 Delivery O2 Flow Rate FiO2 09/29/17 08:59 78 18 95 Nasal Cannula 2.0 28 09/29/17 08:58 95 Nasal Cannula 3.0 32 09/29/17 08:58 32 09/29/17 08:58 Nasal Cannula 3.0 32 09/29/17 08:14 77 18 95 Nasal Cannula 2.0 28 09/29/17 08:00 97.6 78 17 145/64 99 Nasal Cannula 3.0 97.6 09/29/17 04:00 98 Nasal Cannula 3.0 09/29/17 03:27 97.6 74 22 119/59 98 Nasal Cannula 97.6 09/29/17 00:00 97.7 79 19 123/54 99 Nasal Cannula 97.7 09/29/17 00:00 99 Nasal Cannula 3.0 09/28/17 23:59 75 18 95 Nasal Cannula 2.0 28 09/28/17 23:52 28 09/28/17 23:51 75 18 95 Nasal Cannula 2.0 28 09/28/17 21:54 97.7 75 18 108/56 97 Nasal Cannula 2.0 97.7 09/28/17 20:00 97 Nasal Cannula 3.0 09/28/17 20:00 97.7 75 18 108/56 97 Nasal Cannula 2.0 97.7 09/28/17 19:54 79 18 99 Nasal Cannula 3.0 32 09/28/17 19:44 83 20 94 Nasal Cannula 3.0 32 09/28/17 19:44 Nasal Cannula 3.0 32 09/28/17 19:44 94 Nasal Cannula 3.0 32 09/28/17 19:44 32 09/28/17 16:00 97.9 90 18 124/80 98 Nasal Cannula 3.0 97.9 09/28/17 16:00 81 09/28/17 13:09 99 20 80 Nasal Cannula 3.0 32 09/28/17 13:09 32 09/28/17 12:57 66 20 94 Nasal Cannula 3.0 32 09/28/17 12:00 97.7 78 18 131/65 97 Nasal Cannula 3.0 97.7 09/28/17 12:00 73 Intake and Output 09/28/17 09/29/17 19:00 07:00 Intake Total 350 ml Output Total 300 ml Balance 350 ml -300 ml Intake Oral 350 ml Output Urine Total 300 ml # Voids 1 Laboratory Tests 09/29/17 07:12: White Blood Count 13.9H, Red Blood Count 3.64L, Hemoglobin 11.6L, Hematocrit 35.8L, Mean Corpuscular Volume 98, Mean Corpuscular Hemoglobin 31.8H, Mean Corpuscular Hemoglobin Concent 32.3, Red Cell Distribution Width 15.0H, Platelet Count 318, Mean Platelet Volume 8.5, Neutrophils (%) (Auto) , Lymphocytes (%) (Auto) , Monocytes (%) (Auto) , Eosinophils (%) (Auto) , Basophils (%) (Auto) , Differential Total Cells Counted 100, Neutrophils % ( Manual) 96H, Lymphocytes % (Manual) 4L, Monocytes % (Manual) 0L, Eosinophils % ( Manual) 0, Basophils % (Manual) 0, Band Neutrophils 0, Platelet Estimate Adequate, Platelet Morphology Normal, Hypochromasia 1+, Anisocytosis 1+, Erythrocyte Sedimentation Rate 44H, Prothrombin Time 10.0, Prothromb Time International Ratio 1.0, Activated Partial Thromboplast Time 26, Sodium Level 142, Potassium Level 5.3H, Chloride Level 108H, Carbon Dioxide Level 29, Anion Gap 5, Blood Urea Nitrogen 28H, Creatinine 1.4H, Estimat Glomerular Filtration Rate , Glucose Level 131H, Calcium Level 8.4L, Phosphorus Level 3.7, Magnesium Level 2.4, Total Bilirubin 0.1L, Aspartate Amino Transf (AST/SGOT) 22, Alanine Aminotransferase (ALT/SGPT) 18, Alkaline Phosphatase 54, Total Protein 6.3L, Albumin 2.6L, Globulin 3.7, Albumin/Globulin Ratio 0.7L Height (Feet): 5 Height (Inches): 2.00 Weight (Pounds): 133 Oleg Brown Sep 29, 2017 10:09
--- NOTE | 2017-09-29 10:23 | Endoscopy Procedure Note ---
Endoscopy Procedure Note General Indication for Procedure: dysphagia Procedures Performed: EGD Operative Findings/Diagnosis: possible achalasia, retain food in the esophagus Specimen: yes Pt Tolerated Procedure Well: Yes Estimated Blood Loss: none Anesthesia Anesthesiologist: latasha Anesthesia: MAC Inserted Devices Implant(s) used?: No GI Core Measures 50 yrs or older w/o bx or poly: Not Applicable 10yrs. F/U not recommended: Not Applicable RADHA DRAPER Sep 29, 2017 10:23
--- NOTE | 2017-09-29 10:44 | Infectious Diseases Prog Note ---
Assessment/Plan Assessment/Plan ASSESSMENT: The patient is an 87-year-old female with, Leukocytosis, ( on steroids ) Left parotitis improving Facial CT suggestive of left parotitis No evidence of pneumonia CT of the chest, no evidence of PE or infiltrate Afebrile. Rapid influenza A/B negative. CRP 1.8 09/29 SP EGD : Achalasia of esophagus ANDREI Dementia. History of pulmonary emboli History of back pain Depression PLAN: Cont patient on IV vancomycin and Levaquin d# 3 / ( may change vanco if Cr worsen ) Monitor CBC. Monitor BMP. Monitor chest x-ray. Monitor cultures (blood) Subjective Constitutional: Denies: no symptoms, fever, chills, fatigue, anorexia, drenching sweats, other Allergies: Coded Allergies: ACETAMINOPHEN (Verified Allergy, Unknown, 09/26/17) CODEINE (Verified Allergy, Unknown, 09/26/17) HYDROCODONE (Verified Allergy, Unknown, 09/26/17) MORPHINE (Verified Allergy, Unknown, 09/26/17) Uncoded Allergies: tartrazine (Allergy, Unknown, 09/26/17) Objective Vital Signs Last 24 Hour Vital Signs Date Time Temp Pulse Resp B/P (MAP) Pulse Ox O2 Delivery O2 Flow Rate FiO2 09/29/17 08:59 78 18 95 Nasal Cannula 2.0 28 09/29/17 08:58 95 Nasal Cannula 3.0 32 09/29/17 08:58 32 09/29/17 08:58 Nasal Cannula 3.0 32 09/29/17 08:14 77 18 95 Nasal Cannula 2.0 28 09/29/17 08:00 97.6 78 17 145/64 99 Nasal Cannula 3.0 97.6 09/29/17 04:00 98 Nasal Cannula 3.0 09/29/17 03:27 97.6 74 22 119/59 98 Nasal Cannula 97.6 09/29/17 00:00 97.7 79 19 123/54 99 Nasal Cannula 97.7 09/29/17 00:00 99 Nasal Cannula 3.0 09/28/17 23:59 75 18 95 Nasal Cannula 2.0 28 09/28/17 23:52 28 09/28/17 23:51 75 18 95 Nasal Cannula 2.0 28 09/28/17 21:54 97.7 75 18 108/56 97 Nasal Cannula 2.0 97.7 09/28/17 20:00 97 Nasal Cannula 3.0 09/28/17 20:00 97.7 75 18 108/56 97 Nasal Cannula 2.0 97.7 09/28/17 19:54 79 18 99 Nasal Cannula 3.0 32 09/28/17 19:44 83 20 94 Nasal Cannula 3.0 32 09/28/17 19:44 Nasal Cannula 3.0 32 09/28/17 19:44 94 Nasal Cannula 3.0 32 09/28/17 19:44 32 09/28/17 16:00 97.9 90 18 124/80 98 Nasal Cannula 3.0 97.9 09/28/17 16:00 81 09/28/17 13:09 99 20 80 Nasal Cannula 3.0 32 09/28/17 13:09 32 09/28/17 12:57 66 20 94 Nasal Cannula 3.0 32 09/28/17 12:00 97.7 78 18 131/65 97 Nasal Cannula 3.0 97.7 09/28/17 12:00 73 Height (Feet): 5 Height (Inches): 2.00 Weight (Pounds): 133 HEENT: mucous membranes moist Respiratory/Chest: no respiratory distress Cardiovascular: regular rhythm Abdomen: soft, non tender Microbiology Date/Time Source Procedure Growth Status 09/26/17 21:50 Blood Blood Culture - Preliminary NO GROWTH AFTER 48 HOURS Resulted 09/26/17 21:35 Blood Blood Culture - Preliminary NO GROWTH AFTER 48 HOURS Resulted 09/27/17 00:27 Nasal Nares MRSA Culture - Final NO METHICILLIN RESISTANT STAPH AUREUS... Complete 09/26/17 22:45 Nasal Nares Influenza Types A,B Antigen (TATUM) - Final Complete 09/27/17 00:27 Rectum VRE Culture - Final NO VANCOMYCIN RESISTANT ENTEROCOCCUS ... Complete Laboratory Tests Test 09/29/17 07:12 White Blood Count 13.9 K/UL (4.8-10.8) H Red Blood Count 3.64 M/UL (4.20-5.40) L Hemoglobin 11.6 G/DL (12.0-16.0) L Hematocrit 35.8 % (37.0-47.0) L Mean Corpuscular Volume 98 FL (80-99) Mean Corpuscular Hemoglobin 31.8 PG (27.0-31.0) H Mean Corpuscular Hemoglobin Concent 32.3 G/DL (32.0-36.0) Red Cell Distribution Width 15.0 % (11.6-14.8) H Platelet Count 318 K/UL (150-450) Mean Platelet Volume 8.5 FL (6.5-10.1) Neutrophils (%) (Auto) % (45.0-75.0) Lymphocytes (%) (Auto) % (20.0-45.0) Monocytes (%) (Auto) % (1.0-10.0) Eosinophils (%) (Auto) % (0.0-3.0) Basophils (%) (Auto) % (0.0-2.0) Differential Total Cells Counted 100 Neutrophils % (Manual) 96 % (45-75) H Lymphocytes % (Manual) 4 % (20-45) L Monocytes % (Manual) 0 % (1-10) L Eosinophils % (Manual) 0 % (0-3) Basophils % (Manual) 0 % (0-2) Band Neutrophils 0 % (0-8) Platelet Estimate Adequate Platelet Morphology Normal Hypochromasia 1+ Anisocytosis 1+ Erythrocyte Sedimentation Rate 44 MM/HR (0-42) H Prothrombin Time 10.0 SEC (9.30-11.50) Prothromb Time International Ratio 1.0 (0.9-1.1) Activated Partial Thromboplast Time 26 SEC (23-33) Sodium Level 142 MMOL/L (136-145) Potassium Level 5.3 MMOL/L (3.5-5.1) H Chloride Level 108 MMOL/L (98-107) H Carbon Dioxide Level 29 MMOL/L (21-32) Anion Gap 5 mmol/L (5-15) Blood Urea Nitrogen 28 mg/dL (7-18) H Creatinine 1.4 MG/DL (0.55-1.30) H Estimat Glomerular Filtration Rate mL/min (>60) Glucose Level 131 MG/DL (74-106) H Calcium Level 8.4 MG/DL (8.5-10.1) L Phosphorus Level 3.7 MG/DL (2.5-4.9) Magnesium Level 2.4 MG/DL (1.8-2.4) Total Bilirubin 0.1 MG/DL (0.2-1.0) L Aspartate Amino Transf (AST/SGOT) 22 U/L (15-37) Alanine Aminotransferase (ALT/SGPT) 18 U/L (12-78) Alkaline Phosphatase 54 U/L (46-116) Total Protein 6.3 G/DL (6.4-8.2) L Albumin 2.6 G/DL (3.4-5.0) L Globulin 3.7 g/dL Albumin/Globulin Ratio 0.7 (1.0-2.7) L Current Medications Medications (Trade) Dose Ordered Sig/Rambo Route PRN Reason Start Time Stop Time Status Last Admin Dose Admin Albuterol/ Ipratropium (Albuterol/ Ipratropium) 3 ml Q6HRT HHN 09/29/17 01:00 10/02/17 06:59 09/29/17 08:14 Dextrose (Dextrose 50%) STAT PRN IV Hypoglycemia 09/28/17 20:48 10/28/17 20:47 Docusate Sodium (Colace) 100 mg TWICE A DAY ORAL 09/29/17 09:00 10/28/17 17:59 Enoxaparin Sodium (Lovenox) 30 mg Q24H SUBQ 09/29/17 06:00 10/27/17 05:59 Famotidine (Pepcid) 20 mg BID ORAL 09/29/17 09:00 10/27/17 08:59 Influenza Virus Vaccine Quadrival (Flu Vaccine Quadrivalent) 0.5 ml ONCE ONCE IM 09/28/17 20:45 09/28/18 04:46 UNV Iron Sucrose 100 mg/Sodium Chloride 60 ml @ 240 mls/hr BEDTIME IV 09/28/17 21:00 09/30/17 21:01 09/28/17 21:00 Levofloxacin 50 ml @ 50 mls/hr Q24H IVPB 09/28/17 23:00 10/04/17 22:59 09/28/17 22:33 Lorazepam (Ativan 2mg/ml 1ml) 0.5 mg Q4H PRN IV For Anxiety 09/28/17 22:15 10/04/17 18:14 09/29/17 03:53 Methylprednisolone Sodium Succinate (Solu-MEDROL) 40 mg EVERY 6 HOURS IVP 09/29/17 00:00 10/27/17 11:59 09/29/17 06:00 Nitroglycerin (Ntg) 0.4 mg Q5M PRN SL Prn Chest Pain 09/28/17 20:45 10/27/17 04:44 Pneumococcal Polyvalent Vaccine (Pneumovax) 0.5 ml ONCE ONCE IM 09/28/17 20:45 09/28/18 04:46 UNV Sodium 1,000 ml @ 30 mls/hr Q24H IV 09/28/17 20:45 10/27/17 10:59 Vancomycin HCl (Vanco rx to dose) 1 ea DAILY PRN MISC Per rx protocol 09/29/17 09:00 10/27/17 18:59 Vancomycin HCl 1 gm/Dextrose 275 ml @ 183.708 mls/hr Q36H IVPB 09/29/17 13:00 10/04/17 23:59 NATE RAMOS M.D. Sep 29, 2017 10:44
--- NOTE | 2017-09-29 10:58 | 48 Hour Post Anesthesia Eval ---
Post Anesthesia Evaluation Procedure: EGD Date of Evaluation: Sep 29, 2017 Time of Evaluation: 10:58 Blood Pressure Systolic: 127 0: 68 Pulse Rate: 77 O2 Sat by Pulse Oximetry: 99 Airway: patent Nausea: No Vomiting: No Hydration Status: adequate Cardiopulmonary Status: stable Mental Status/LOC: patient returned to baseline Follow-up Care/Observations: na Post-Anesthesia Complications: none Follow-up care needed: N/A HERBIE CASTILLO CRNA Sep 29, 2017 10:58
--- NOTE | 2017-09-29 11:00 | Immediate Post-Op Evaluation ---
Immediate Post-Op Evalulation Immediate Post-Op Evalulation Procedure: EGD Date of Evaluation: Sep 29, 2017 Time of Evaluation: 10:10 IV Fluids: 300 Blood Pressure Systolic: 115 Blood Pressure Diastolic: 69 Pulse Rate: 70 Respiratory Rate: 14 O2 Sat by Pulse Oximetry: 98 Temperature (Fahrenheit): 97.5 Nausea: No Vomiting: No Complications none Patient Status: awake, reacts, patent Hydration Status: adequate Drug: none HERBIE CASTILLO CRNA Sep 29, 2017 11:00
[2017-09-29] MEDS ORDERED: Vancomycin 1 GM in D5W 275 ML IVPB SCH (13:00)
[2017-09-29] MEDS ORDERED: Vancomycin 1gm/D5W 275ml IVPB SCH ×2 (13:00)
[2017-09-29] MEDS ORDERED: Nitroglycerin Subl 0.4mg tab SL PRN (14:15)
[2017-09-29] MEDS ORDERED: Flu Vaccine Quadrivalent 0.5ml IM ONE (14:15)
[2017-09-29] MEDS ORDERED: Pneumococcal Vaccine 25mcg/0.5ml IM ONE (14:15)
[2017-09-29] MEDS ORDERED: LORazepam Inj 2mg/ml 1ml IV PRN (14:15)
[2017-09-29] MEDS ORDERED: 1/2NS w/KCl 20mEq 1000ml 1,000 ML IV SCH (15:00)
--- NOTE | 2017-09-29 15:18 | Diagnostic Imaging Report ---
Indication: Shortness of breath Technique: One view of the chest Comparison: 09/28/2017 Findings: Opacity of the left lung base is probably unchanged, likely combination of pleural fluid, atelectasis, and infiltrate. Right paratracheal mass masslike opacity is again demonstrated, demonstrated on recent CT scan to represent a dilated esophagus. Surgical clips are seen in the right lung apex. Findings are overall unchanged. Impression: Unchanged, over one day, findings as above.
--- NOTE | 2017-09-29 15:40 | Pulmonology Progress Note ---
Assessment/Plan Problems: (1) Pneumonia (2) Parotiditis (3) Dementia Assessment/Plan GENIE monitoring check cxr respiratory treatment check sputum iv abx check cutlrues chest pt titrate fio2 to sat of 92% med/surg Subjective ROS Limited/Unobtainable: No Interval Events: one episode of choking, aspiration Allergies: Coded Allergies: ACETAMINOPHEN (Verified Allergy, Unknown, 09/26/17) CODEINE (Verified Allergy, Unknown, 09/26/17) HYDROCODONE (Verified Allergy, Unknown, 09/26/17) MORPHINE (Verified Allergy, Unknown, 09/26/17) Uncoded Allergies: tartrazine (Allergy, Unknown, 09/26/17) Objective Last 24 Hour Vital Signs Date Time Temp Pulse Resp B/P (MAP) Pulse Ox O2 Delivery O2 Flow Rate FiO2 09/29/17 13:35 92 26 94 Non-Rebreather 15.0 100 09/29/17 13:28 26 149/70 Non-Rebreather 15.0 09/29/17 13:25 28 09/29/17 13:23 92 22 88 Nasal Cannula 2.0 28 09/29/17 12:00 97.9 114 19 127/70 93 Room Air 3.0 97.9 09/29/17 11:00 207.5 70 14 98 09/29/17 10:58 77 99 09/29/17 10:45 98.0 70 20 127/66 95 Nasal Cannula 3.0 98.0 09/29/17 10:30 70 20 127/63 95 Nasal Cannula 3.0 09/29/17 10:15 71 20 137/64 95 Nasal Cannula 3.0 09/29/17 10:10 98.0 82 20 115/69 95 Nasal Cannula 3.0 98.0 09/29/17 08:59 78 18 95 Nasal Cannula 2.0 28 09/29/17 08:58 95 Nasal Cannula 3.0 32 09/29/17 08:58 32 09/29/17 08:58 Nasal Cannula 3.0 32 09/29/17 08:14 77 18 95 Nasal Cannula 2.0 28 09/29/17 08:00 97.6 78 17 145/64 99 Nasal Cannula 3.0 97.6 09/29/17 04:00 98 Nasal Cannula 3.0 09/29/17 03:27 97.6 74 22 119/59 98 Nasal Cannula 97.6 09/29/17 00:00 97.7 79 19 123/54 99 Nasal Cannula 97.7 09/29/17 00:00 99 Nasal Cannula 3.0 09/28/17 23:59 75 18 95 Nasal Cannula 2.0 28 09/28/17 23:52 28 09/28/17 23:51 75 18 95 Nasal Cannula 2.0 28 09/28/17 21:54 97.7 75 18 108/56 97 Nasal Cannula 2.0 97.7 09/28/17 20:00 97 Nasal Cannula 3.0 09/28/17 20:00 97.7 75 18 108/56 97 Nasal Cannula 2.0 97.7 09/28/17 19:54 79 18 99 Nasal Cannula 3.0 32 09/28/17 19:44 83 20 94 Nasal Cannula 3.0 32 09/28/17 19:44 Nasal Cannula 3.0 32 09/28/17 19:44 94 Nasal Cannula 3.0 32 09/28/17 19:44 32 09/28/17 16:00 97.9 90 18 124/80 98 Nasal Cannula 3.0 97.9 09/28/17 16:00 81 Intake and Output 09/28/17 09/29/17 19:00 07:00 Intake Total 350 ml Output Total 300 ml Balance 350 ml -300 ml Intake Oral 350 ml Output Urine Total 300 ml # Voids 1 Objective General Appearance: WD/WN Lines, tubes and drains: peripheral HEENT: normocephalic, atraumatic Neck: non-tender, normal alignment Respiratory/Chest: chest wall non-tender, lungs rhonchi Cardiovascular/Chest: normal peripheral pulses, normal rate Abdomen: normal bowel sounds, non tender Genitourinary/Rectal: normal genital exam, normal rectal exam Extremities: normal range of motion, non-tender Skin Exam: normal pigmentation 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 Complete 09/26/17 22:45 Nasal Nares Influenza Types A,B Antigen (TATUM) - Final Complete 09/27/17 00:27 Rectum VRE Culture - Final NO VANCOMYCIN RESISTANT ENTEROCOCCUS ... Complete Laboratory Tests 09/29/17 07:12: White Blood Count 13.9H, Red Blood Count 3.64L, Hemoglobin 11.6L, Hematocrit 35.8L, Mean Corpuscular Volume 98, Mean Corpuscular Hemoglobin 31.8H, Mean Corpuscular Hemoglobin Concent 32.3, Red Cell Distribution Width 15.0H, Platelet Count 318, Mean Platelet Volume 8.5, Neutrophils (%) (Auto) , Lymphocytes (%) (Auto) , Monocytes (%) (Auto) , Eosinophils (%) (Auto) , Basophils (%) (Auto) , Differential Total Cells Counted 100, Neutrophils % ( Manual) 96H, Lymphocytes % (Manual) 4L, Monocytes % (Manual) 0L, Eosinophils % ( Manual) 0, Basophils % (Manual) 0, Band Neutrophils 0, Platelet Estimate Adequate, Platelet Morphology Normal, Hypochromasia 1+, Anisocytosis 1+, Erythrocyte Sedimentation Rate 44H, Prothrombin Time 10.0, Prothromb Time International Ratio 1.0, Activated Partial Thromboplast Time 26, Sodium Level 142, Potassium Level 5.3H, Chloride Level 108H, Carbon Dioxide Level 29, Anion Gap 5, Blood Urea Nitrogen 28H, Creatinine 1.4H, Estimat Glomerular Filtration Rate , Glucose Level 131H, Calcium Level 8.4L, Phosphorus Level 3.7, Magnesium Level 2.4, Total Bilirubin 0.1L, Aspartate Amino Transf (AST/SGOT) 22, Alanine Aminotransferase (ALT/SGPT) 18, Alkaline Phosphatase 54, Total Protein 6.3L, Albumin 2.6L, Globulin 3.7, Albumin/Globulin Ratio 0.7L 09/29/17 13:55: Arterial Blood pH 7.360, Arterial Blood Partial Pressure CO2 46.2H, Arterial Blood Partial Pressure O2 72.2L, Arterial Blood HCO3 26.0, Arterial Blood Oxygen Saturation 94.6, Arterial Blood Base Excess 0.4, Robbie Test Positive Current Medications Medications (Trade) Dose Ordered Sig/Rambo Route PRN Reason Start Time Stop Time Status Last Admin Dose Admin Albuterol/ Ipratropium (Albuterol/ Ipratropium) 3 ml Q6HRT HHN 09/29/17 19:00 10/02/17 06:59 Dextrose (Dextrose 50%) STAT PRN IV Hypoglycemia 09/29/17 14:30 10/28/17 14:29 Docusate Sodium (Colace) 100 mg TWICE A DAY ORAL 09/29/17 18:00 10/28/17 17:59 Enoxaparin Sodium (Lovenox) 30 mg Q24H SUBQ 09/30/17 09:00 10/27/17 08:59 Famotidine (Pepcid) 20 mg BID ORAL 09/29/17 18:00 10/27/17 08:59 Influenza Virus Vaccine Quadrival (Flu Vaccine Quadrivalent) 0.5 ml ONCE ONCE IM 09/29/17 14:15 09/28/18 04:46 UNV Iron Sucrose 100 mg/Sodium Chloride 60 ml @ 240 mls/hr BEDTIME IV 09/29/17 21:00 09/30/17 21:01 Levofloxacin 50 ml @ 50 mls/hr Q24H IVPB 09/29/17 23:00 10/03/17 22:59 Lorazepam (Ativan 2mg/ml 1ml) 0.5 mg Q4H PRN IV For Anxiety 09/29/17 14:15 10/04/17 18:14 Methylprednisolone Sodium Succinate (Solu-MEDROL) 40 mg EVERY 6 HOURS IVP 09/29/17 18:00 10/27/17 11:59 Nitroglycerin (Ntg) 0.4 mg Q5M PRN SL Prn Chest Pain 09/29/17 14:15 10/27/17 04:44 Pneumococcal Polyvalent Vaccine (Pneumovax) 0.5 ml ONCE ONCE IM 09/29/17 14:15 09/28/18 04:46 UNV Sodium Chloride 1,000 ml @ 30 mls/hr Q24H IV 09/29/17 15:30 10/29/17 15:29 UNV Vancomycin HCl (Vanco rx to dose) 1 ea DAILY PRN MISC Per rx protocol 09/30/17 09:00 10/27/17 18:59 Vancomycin HCl 1 gm/Dextrose 275 ml @ 183.708 mls/hr Q36H IVPB 09/29/17 15:00 10/04/17 14:59 BHAVESH MARION Sep 29, 2017 15:40
[2017-09-29 16:33] LABS: HEMATOCRIT 38.3 % (37.0-47.0); HEMOGLOBIN 12.4 G/DL (12.0-16.0); MEAN CORPUSCULAR VOLUME 99 FL (80-99); PLATELET COUNT 311 K/UL (150-450); RED BLOOD COUNT 3.86 M/UL (4.20-5.40); RED CELL DISTRIBUTION WIDTH 15.3 % (11.6-14.8); WHITE BLOOD COUNT 17.4 K/UL (4.8-10.8)
[2017-09-29 16:54] LABS: CREATINE KINASE 237 U/L (26-308)
[2017-09-29] MEDS: Vancomycin 1 GM in D5W 275 ML IVPB SCH (17:14)
--- NOTE | 2017-09-29 18:37 | Neurology Progress Note ---
Interim History Interim History ROS Limited/Unobtainable: Yes Objective Physical Exam Last Vital Signs Date Time Temp Pulse Resp B/P (MAP) Pulse Ox O2 Delivery O2 Flow Rate FiO2 09/29/17 16:22 100 09/29/17 16:10 97.8 22 127/67 Room Air 3.0 97.8 09/29/17 15:54 94 09/29/17 13:35 100 Laboratory Tests Test 09/29/17 07:12 09/29/17 13:55 09/29/17 16:00 White Blood Count 13.9 K/UL (4.8-10.8) H 17.4 K/UL (4.8-10.8) H Red Blood Count 3.64 M/UL (4.20-5.40) L 3.86 M/UL (4.20-5.40) L Hemoglobin 11.6 G/DL (12.0-16.0) L 12.4 G/DL (12.0-16.0) Hematocrit 35.8 % (37.0-47.0) L 38.3 % (37.0-47.0) Mean Corpuscular Volume 98 FL (80-99) 99 FL (80-99) Mean Corpuscular Hemoglobin 31.8 PG (27.0-31.0) H 32.2 PG (27.0-31.0) H Mean Corpuscular Hemoglobin Concent 32.3 G/DL (32.0-36.0) 32.4 G/DL (32.0-36.0) Red Cell Distribution Width 15.0 % (11.6-14.8) H 15.3 % (11.6-14.8) H Platelet Count 318 K/UL (150-450) 311 K/UL (150-450) Mean Platelet Volume 8.5 FL (6.5-10.1) 8.3 FL (6.5-10.1) Neutrophils (%) (Auto) % (45.0-75.0) % (45.0-75.0) Lymphocytes (%) (Auto) % (20.0-45.0) % (20.0-45.0) Monocytes (%) (Auto) % (1.0-10.0) % (1.0-10.0) Eosinophils (%) (Auto) % (0.0-3.0) % (0.0-3.0) Basophils (%) (Auto) % (0.0-2.0) % (0.0-2.0) Differential Total Cells Counted 100 100 Neutrophils % (Manual) 96 % (45-75) H 95 % (45-75) H Lymphocytes % (Manual) 4 % (20-45) L 4 % (20-45) L Monocytes % (Manual) 0 % (1-10) L 1 % (1-10) Eosinophils % (Manual) 0 % (0-3) 0 % (0-3) Basophils % (Manual) 0 % (0-2) 0 % (0-2) Band Neutrophils 0 % (0-8) 0 % (0-8) Platelet Estimate Adequate Adequate Platelet Morphology Normal Normal Hypochromasia 1+ 1+ Anisocytosis 1+ 1+ Erythrocyte Sedimentation Rate 44 MM/HR (0-42) H Prothrombin Time 10.0 SEC (9.30-11.50) Prothromb Time International Ratio 1.0 (0.9-1.1) Activated Partial Thromboplast Time 26 SEC (23-33) Sodium Level 142 MMOL/L (136-145) Potassium Level 5.3 MMOL/L (3.5-5.1) H Chloride Level 108 MMOL/L (98-107) H Carbon Dioxide Level 29 MMOL/L (21-32) Anion Gap 5 mmol/L (5-15) Blood Urea Nitrogen 28 mg/dL (7-18) H Creatinine 1.4 MG/DL (0.55-1.30) H Estimat Glomerular Filtration Rate mL/min (>60) Glucose Level 131 MG/DL (74-106) H Uric Acid 6.1 MG/DL (2.6-7.2) Calcium Level 8.4 MG/DL (8.5-10.1) L Phosphorus Level 3.7 MG/DL (2.5-4.9) Magnesium Level 2.4 MG/DL (1.8-2.4) Total Bilirubin 0.1 MG/DL (0.2-1.0) L Aspartate Amino Transf (AST/SGOT) 22 U/L (15-37) Alanine Aminotransferase (ALT/SGPT) 18 U/L (12-78) Alkaline Phosphatase 54 U/L (46-116) Total Creatine Kinase 237 U/L (26-308) Total Protein 6.3 G/DL (6.4-8.2) L Albumin 2.6 G/DL (3.4-5.0) L Globulin 3.7 g/dL Albumin/Globulin Ratio 0.7 (1.0-2.7) L Arterial Blood pH 7.360 (7.350-7.450) Arterial Blood Partial Pressure CO2 46.2 mmHg (35.0-45.0) H Arterial Blood Partial Pressure O2 72.2 mmHg (75.0-100.0) L Arterial Blood HCO3 26.0 mmol/L (22.0-26.0) Arterial Blood Oxygen Saturation 94.6 % (92.0-98.0) Arterial Blood Base Excess 0.4 Robbie Test Positive Impression/Recommendations Status: unchanged Recommendations #[id number] BIRD ENGEL Sep 29, 2017 18:37
--- NOTE | 2017-09-29 18:45 | Procedure Note ---
DATE OF PROCEDURE: 09/29/2017 SURGEON: Isrrael Ledesma M.D. PROCEDURE: Upper endoscopy with biopsy. ANESTHESIA: Per PATTERN GRADER SUPERVISOR, Stacie Tarrillion. INSTRUMENT: Olympus adult flexible upper endoscope. INDICATION: Achalasia. REASON FOR PROCEDURE: The procedure, risks, benefits, and possible consequences, including hemorrhage, aspiration, perforation and infection, and alternative treatments, were explained to the patient/legal guardian by Dr. Isrrael Ledesma and the patient/legal guardian understood and accepted these risks. PROCEDURE: After informed consent was obtained and the patient was adequately sedated, Olympus upper endoscope was advanced from mouth into the second portion of duodenum and retroflexion was performed of the stomach. The patient has evidence of retained food in the esophagus, all suggestive of achalasia and esophageal motility disorder, little bit narrowing at the GE junction. We were able to pass the scope through. No evidence of any esophageal mass seen at this time. In the stomach, there was diffuse gastritis. Random biopsy from antrum was obtained to rule out H. pylori infection. We also did a biopsy at the GE junction to rule out malignancy as a cause of achalasia, although there is no obvious tumor at this time. SUMMARY FINDINGS: 1. Retained food material in the esophagus suggestive of esophageal dysmotility and positive achalasia. 2. Gastritis, status post biopsy. RECOMMENDATIONS: Follow the esophagram consistent with achalasia. We recommend EGD with Botox injection. At the GE junction given the patient's age of 87. The patient at this time is at high risk for balloon dilation of surgery, although we will consider those if the patient does not respond to Botox injection. I discussed with the pharmacy at this time, we do not have the Botox injections available, so most probably the patient needs to come as an outpatient for this procedure. I want to thank, Dr. Cullen Briceno, for this kind referral. Isrrael Ledesma M.D. DR: BHARAT JOB#: [id number] CC: Cullen Briceno M.D.; Fax#: [phone]
[2017-09-29] MEDS ORDERED: Sodium Polystyrene Sulfonate 15gm Powder ORAL ONE (20:00)
--- NOTE | 2017-09-29 20:25 | General Progress Note ---
Assessment/Plan Status: stable Assessment/Plan mdd dementia with behavioral dist -zyprexa 2.5mg qhs/prn Subjective Date patient seen: Sep 29, 2017 Neurologic/Psychiatric: Reports: anxiety, depressed Allergies: Coded Allergies: ACETAMINOPHEN (Verified Allergy, Unknown, 09/26/17) CODEINE (Verified Allergy, Unknown, 09/26/17) HYDROCODONE (Verified Allergy, Unknown, 09/26/17) MORPHINE (Verified Allergy, Unknown, 09/26/17) Uncoded Allergies: tartrazine (Allergy, Unknown, 09/26/17) Objective Last 24 Hour Vital Signs Date Time Temp Pulse Resp B/P (MAP) Pulse Ox O2 Delivery O2 Flow Rate FiO2 09/29/17 19:49 77 20 96 Nasal Cannula 3.0 32 09/29/17 19:48 95 Nasal Cannula 3.0 32 09/29/17 19:48 Nasal Cannula 3.0 32 09/29/17 19:48 75 20 95 Nasal Cannula 3.0 32 09/29/17 16:22 100 09/29/17 16:10 97.8 103 22 127/67 Room Air 3.0 97.8 09/29/17 16:10 97.8 103 22 127/67 Nasal Cannula 3.0 97.8 09/29/17 15:54 97.7 107 20 123/106 94 Nasal Cannula 3.0 97.7 09/29/17 13:35 92 26 94 Non-Rebreather 15.0 100 09/29/17 13:28 26 149/70 Non-Rebreather 15.0 09/29/17 13:25 28 09/29/17 13:23 92 22 88 Nasal Cannula 2.0 28 09/29/17 12:00 97.9 114 19 127/70 93 Room Air 3.0 97.9 09/29/17 11:00 207.5 70 14 98 09/29/17 10:58 77 99 09/29/17 10:45 98.0 70 20 127/66 95 Nasal Cannula 3.0 98.0 09/29/17 10:30 70 20 127/63 95 Nasal Cannula 3.0 09/29/17 10:15 71 20 137/64 95 Nasal Cannula 3.0 09/29/17 10:10 98.0 82 20 115/69 95 Nasal Cannula 3.0 98.0 09/29/17 08:59 78 18 95 Nasal Cannula 2.0 28 09/29/17 08:58 95 Nasal Cannula 3.0 32 09/29/17 08:58 32 09/29/17 08:58 Nasal Cannula 3.0 32 09/29/17 08:14 77 18 95 Nasal Cannula 2.0 28 09/29/17 08:00 97.6 78 17 145/64 99 Nasal Cannula 3.0 97.6 09/29/17 04:00 98 Nasal Cannula 3.0 09/29/17 03:27 97.6 74 22 119/59 98 Nasal Cannula 97.6 09/29/17 00:00 97.7 79 19 123/54 99 Nasal Cannula 97.7 09/29/17 00:00 99 Nasal Cannula 3.0 09/28/17 23:59 75 18 95 Nasal Cannula 2.0 28 09/28/17 23:52 28 09/28/17 23:51 75 18 95 Nasal Cannula 2.0 28 09/28/17 21:54 97.7 75 18 108/56 97 Nasal Cannula 2.0 97.7 Intake and Output 09/28/17 09/29/17 19:00 07:00 Intake Total 350 ml Output Total 300 ml Balance 350 ml -300 ml Intake Oral 350 ml Output Urine Total 300 ml # Voids 1 Laboratory Tests 09/29/17 07:12: White Blood Count 13.9H, Red Blood Count 3.64L, Hemoglobin 11.6L, Hematocrit 35.8L, Mean Corpuscular Volume 98, Mean Corpuscular Hemoglobin 31.8H, Mean Corpuscular Hemoglobin Concent 32.3, Red Cell Distribution Width 15.0H, Platelet Count 318, Mean Platelet Volume 8.5, Neutrophils (%) (Auto) , Lymphocytes (%) (Auto) , Monocytes (%) (Auto) , Eosinophils (%) (Auto) , Basophils (%) (Auto) , Differential Total Cells Counted 100, Neutrophils % ( Manual) 96H, Lymphocytes % (Manual) 4L, Monocytes % (Manual) 0L, Eosinophils % ( Manual) 0, Basophils % (Manual) 0, Band Neutrophils 0, Platelet Estimate Adequate, Platelet Morphology Normal, Hypochromasia 1+, Anisocytosis 1+, Erythrocyte Sedimentation Rate 44H, Prothrombin Time 10.0, Prothromb Time International Ratio 1.0, Activated Partial Thromboplast Time 26, Sodium Level 142, Potassium Level 5.3H, Chloride Level 108H, Carbon Dioxide Level 29, Anion Gap 5, Blood Urea Nitrogen 28H, Creatinine 1.4H, Estimat Glomerular Filtration Rate , Glucose Level 131H, Uric Acid 6.1, Calcium Level 8.4L, Phosphorus Level 3.7, Magnesium Level 2.4, Total Bilirubin 0.1L, Aspartate Amino Transf (AST/SGOT ) 22, Alanine Aminotransferase (ALT/SGPT) 18, Alkaline Phosphatase 54, Total Creatine Kinase 237, Total Protein 6.3L, Albumin 2.6L, Globulin 3.7, Albumin/ Globulin Ratio 0.7L 09/29/17 13:55: Arterial Blood pH 7.360, Arterial Blood Partial Pressure CO2 46.2H, Arterial Blood Partial Pressure O2 72.2L, Arterial Blood HCO3 26.0, Arterial Blood Oxygen Saturation 94.6, Arterial Blood Base Excess 0.4, Robbie Test Positive 09/29/17 16:00: White Blood Count 17.4H, Red Blood Count 3.86L, Hemoglobin 12.4, Hematocrit 38.3 , Mean Corpuscular Volume 99, Mean Corpuscular Hemoglobin 32.2H, Mean Corpuscular Hemoglobin Concent 32.4, Red Cell Distribution Width 15.3H, Platelet Count 311, Mean Platelet Volume 8.3, Neutrophils (%) (Auto) , Lymphocytes (%) (Auto) , Monocytes (%) (Auto) , Eosinophils (%) (Auto) , Basophils (%) (Auto) , Differential Total Cells Counted 100, Neutrophils % ( Manual) 95H, Lymphocytes % (Manual) 4L, Monocytes % (Manual) 1, Eosinophils % ( Manual) 0, Basophils % (Manual) 0, Band Neutrophils 0, Platelet Estimate Adequate, Platelet Morphology Normal, Hypochromasia 1+, Anisocytosis 1+ Height (Feet): 5 Height (Inches): 2.00 Weight (Pounds): 133 General Appearance: no apparent distress, alert, confused, agitated Shane Garcia M.D. Sep 29, 2017 20:25
--- NOTE | 2017-09-29 20:26 | Psych Consult Progress Note ---
Psych Consult Progress Note Consult 09/28/17 Vital Signs Last 24 Hour Vital Signs Date Time Temp Pulse Resp B/P (MAP) Pulse Ox O2 Delivery O2 Flow Rate FiO2 09/29/17 19:49 77 20 96 Nasal Cannula 3.0 32 09/29/17 19:48 95 Nasal Cannula 3.0 32 09/29/17 19:48 Nasal Cannula 3.0 32 09/29/17 19:48 75 20 95 Nasal Cannula 3.0 32 09/29/17 16:22 100 09/29/17 16:10 97.8 103 22 127/67 Room Air 3.0 97.8 09/29/17 16:10 97.8 103 22 127/67 Nasal Cannula 3.0 97.8 09/29/17 15:54 97.7 107 20 123/106 94 Nasal Cannula 3.0 97.7 09/29/17 13:35 92 26 94 Non-Rebreather 15.0 100 09/29/17 13:28 26 149/70 Non-Rebreather 15.0 09/29/17 13:25 28 09/29/17 13:23 92 22 88 Nasal Cannula 2.0 28 09/29/17 12:00 97.9 114 19 127/70 93 Room Air 3.0 97.9 09/29/17 11:00 207.5 70 14 98 09/29/17 10:58 77 99 09/29/17 10:45 98.0 70 20 127/66 95 Nasal Cannula 3.0 98.0 09/29/17 10:30 70 20 127/63 95 Nasal Cannula 3.0 09/29/17 10:15 71 20 137/64 95 Nasal Cannula 3.0 09/29/17 10:10 98.0 82 20 115/69 95 Nasal Cannula 3.0 98.0 09/29/17 08:59 78 18 95 Nasal Cannula 2.0 28 09/29/17 08:58 95 Nasal Cannula 3.0 32 09/29/17 08:58 32 09/29/17 08:58 Nasal Cannula 3.0 32 09/29/17 08:14 77 18 95 Nasal Cannula 2.0 28 09/29/17 08:00 97.6 78 17 145/64 99 Nasal Cannula 3.0 97.6 09/29/17 04:00 98 Nasal Cannula 3.0 3/9/18 03:27 97.6 74 22 119/59 98 Nasal Cannula 97.6 09/29/17 00:00 97.7 79 19 123/54 99 Nasal Cannula 97.7 09/29/17 00:00 99 Nasal Cannula 3.0 09/28/17 23:59 75 18 95 Nasal Cannula 2.0 28 09/28/17 23:52 28 09/28/17 23:51 75 18 95 Nasal Cannula 2.0 28 09/28/17 21:54 97.7 75 18 108/56 97 Nasal Cannula 2.0 97.7 Labs Laboratory Tests Test 09/29/17 07:12 09/29/17 13:55 09/29/17 16:00 White Blood Count 13.9 K/UL (4.8-10.8) H 17.4 K/UL (4.8-10.8) H Red Blood Count 3.64 M/UL (4.20-5.40) L 3.86 M/UL (4.20-5.40) L Hemoglobin 11.6 G/DL (12.0-16.0) L 12.4 G/DL (12.0-16.0) Hematocrit 35.8 % (37.0-47.0) L 38.3 % (37.0-47.0) Mean Corpuscular Volume 98 FL (80-99) 99 FL (80-99) Mean Corpuscular Hemoglobin 31.8 PG (27.0-31.0) H 32.2 PG (27.0-31.0) H Mean Corpuscular Hemoglobin Concent 32.3 G/DL (32.0-36.0) 32.4 G/DL (32.0-36.0) Red Cell Distribution Width 15.0 % (11.6-14.8) H 15.3 % (11.6-14.8) H Platelet Count 318 K/UL (150-450) 311 K/UL (150-450) Mean Platelet Volume 8.5 FL (6.5-10.1) 8.3 FL (6.5-10.1) Neutrophils (%) (Auto) % (45.0-75.0) % (45.0-75.0) Lymphocytes (%) (Auto) % (20.0-45.0) % (20.0-45.0) Monocytes (%) (Auto) % (1.0-10.0) % (1.0-10.0) Eosinophils (%) (Auto) % (0.0-3.0) % (0.0-3.0) Basophils (%) (Auto) % (0.0-2.0) % (0.0-2.0) Differential Total Cells Counted 100 100 Neutrophils % (Manual) 96 % (45-75) H 95 % (45-75) H Lymphocytes % (Manual) 4 % (20-45) L 4 % (20-45) L Monocytes % (Manual) 0 % (1-10) L 1 % (1-10) Eosinophils % (Manual) 0 % (0-3) 0 % (0-3) Basophils % (Manual) 0 % (0-2) 0 % (0-2) Band Neutrophils 0 % (0-8) 0 % (0-8) Platelet Estimate Adequate Adequate Platelet Morphology Normal Normal Hypochromasia 1+ 1+ Anisocytosis 1+ 1+ Erythrocyte Sedimentation Rate 44 MM/HR (0-42) H Prothrombin Time 10.0 SEC (9.30-11.50) Prothromb Time International Ratio 1.0 (0.9-1.1) Activated Partial Thromboplast Time 26 SEC (23-33) Sodium Level 142 MMOL/L (136-145) Potassium Level 5.3 MMOL/L (3.5-5.1) H Chloride Level 108 MMOL/L (98-107) H Carbon Dioxide Level 29 MMOL/L (21-32) Anion Gap 5 mmol/L (5-15) Blood Urea Nitrogen 28 mg/dL (7-18) H Creatinine 1.4 MG/DL (0.55-1.30) H Estimat Glomerular Filtration Rate mL/min (>60) Glucose Level 131 MG/DL (74-106) H Uric Acid 6.1 MG/DL (2.6-7.2) Calcium Level 8.4 MG/DL (8.5-10.1) L Phosphorus Level 3.7 MG/DL (2.5-4.9) Magnesium Level 2.4 MG/DL (1.8-2.4) Total Bilirubin 0.1 MG/DL (0.2-1.0) L Aspartate Amino Transf (AST/SGOT) 22 U/L (15-37) Alanine Aminotransferase (ALT/SGPT) 18 U/L (12-78) Alkaline Phosphatase 54 U/L (46-116) Total Creatine Kinase 237 U/L (26-308) Total Protein 6.3 G/DL (6.4-8.2) L Albumin 2.6 G/DL (3.4-5.0) L Globulin 3.7 g/dL Albumin/Globulin Ratio 0.7 (1.0-2.7) L Arterial Blood pH 7.360 (7.350-7.450) Arterial Blood Partial Pressure CO2 46.2 mmHg (35.0-45.0) H Arterial Blood Partial Pressure O2 72.2 mmHg (75.0-100.0) L Arterial Blood HCO3 26.0 mmol/L (22.0-26.0) Arterial Blood Oxygen Saturation 94.6 % (92.0-98.0) Arterial Blood Base Excess 0.4 Robbie Test Positive Medications Current Medications Medications (Trade) Dose Ordered Sig/Rambo Route PRN Reason Start Time Stop Time Status Last Admin Dose Admin Albuterol/ Ipratropium (Albuterol/ Ipratropium) 3 ml Q6HRT HHN 09/29/17 19:00 10/02/17 06:59 09/29/17 19:47 Dextrose (Dextrose 50%) STAT PRN IV Hypoglycemia 09/29/17 14:30 10/28/17 14:29 Enoxaparin Sodium (Lovenox) 30 mg Q24H SUBQ 09/30/17 09:00 10/27/17 08:59 Famotidine (Pepcid) 20 mg BID ORAL 09/29/17 18:00 10/27/17 08:59 Iron Sucrose 100 mg/Sodium Chloride 60 ml @ 240 mls/hr BEDTIME IV 09/29/17 21:00 09/30/17 21:01 Levofloxacin 50 ml @ 50 mls/hr Q24H IVPB 09/29/17 23:00 10/03/17 22:59 Lorazepam (Ativan 2mg/ml 1ml) 0.5 mg Q4H PRN IV For Anxiety 09/29/17 14:15 10/04/17 18:14 09/29/17 15:55 Methylprednisolone Sodium Succinate (Solu-MEDROL) 40 mg EVERY 6 HOURS IVP 09/29/17 18:00 10/27/17 11:59 09/29/17 18:32 Nitroglycerin (Ntg) 0.4 mg Q5M PRN SL Prn Chest Pain 09/29/17 14:15 10/27/17 04:44 Pneumococcal Polyvalent Vaccine (Pneumovax) 0.5 ml ONCE ONCE IM 09/29/17 14:15 09/28/18 04:46 UNV Sodium Chloride 1,000 ml @ 30 mls/hr Q24H IV 09/29/17 15:50 10/29/17 15:49 09/29/17 15:56 Vancomycin HCl (Vanco rx to dose) 1 ea DAILY PRN MISC Per rx protocol 09/30/17 09:00 10/27/17 18:59 Vancomycin HCl 1 gm/Dextrose 275 ml @ 183.708 mls/hr Q36H IVPB 09/29/17 15:00 10/04/17 14:59 09/29/17 17:14 Problems: (1) mdd (2) mdd Assessment & Plan: mdd dementia with behavioral dist -zyprexa 2.5mg qhs/prn Shane Garcia M.D. Sep 29, 2017 20:26
[2017-09-29] MEDS: Iron Sucrose 100 MG in NS 55 ML IV SCH (21:18)
[2017-09-29 23:38] LABS: APPEARANCE,URINE CLEAR; BILIRUBIN, URINE NEGATIVE (NEGATIVE); GLUCOSE, URINE (UA) NEGATIVE (NEGATIVE); KETONES,URINE NEGATIVE (NEGATIVE); LEUKOCYTE ESTERASE ,URINE 1+ (NEGATIVE); NITRITE,URINE NEGATIVE (NEGATIVE); PH,URINE 5 (4.5-8.0); PROTEIN,URINE 1+ (NEGATIVE); UROBILINOGEN,URINE NORMAL MG/DL (0.0-1.0)
[2017-09-29 23:40] LABS: COLOR,URINE BROWN
[2017-09-30] VITALS: BP 135/73
[2017-09-30] MEDS: Albuterol/Ipratropium 3ml neb HHN SCH ×4 (00:04→20:37)
[2017-09-30] MEDS: Solu-MEDROL 40mg Inj IVP SCH ×4 (01:38→17:45)
[2017-09-30 04:00] VITALS: BP 125/60
[2017-09-30 05:24] LABS: HEMATOCRIT 34.4 % (37.0-47.0); HEMOGLOBIN 11.2 G/DL (12.0-16.0); MEAN CORPUSCULAR VOLUME 99 FL (80-99); PLATELET COUNT 321 K/UL (150-450); RED BLOOD COUNT 3.47 M/UL (4.20-5.40); RED CELL DISTRIBUTION WIDTH 15.2 % (11.6-14.8); WHITE BLOOD COUNT 14.4 K/UL (4.8-10.8)
--- NOTE | 2017-09-30 05:30 | Consultation ---
DATE OF CONSULTATION: 09/29/2017 NEUROLOGICAL CONSULTATION CONSULTING PHYSICIAN: Phillip Mendes M.D. REQUESTING PHYSICIAN: Cullen Briceno M.D. HISTORY OF PRESENT ILLNESS: This is an 87-year-old female seen in neurological consultation to evaluate the significant tremors in her both upper extremities suspected to have seizure activities as well as address the issue of underlying dementia. The patient unable to provide with any information due to significant level of cognitive loss. I discussed the patient's status with her son who was present during this examination as well as from review of records. Known that the patient is suffering from dementia for at least 5 years, it was noted that when she had mild tremors, was not affecting her daily activities, but when she had a previous episode of pneumonia couple of years ago, tremor was quite significant. The cause of this tremor was not explained to the family. The patient has no evidence of previous seizure disorder. The patient now was brought from nursing facility with evaluation of left-sided parotitis and possibly pneumonia. It was reported that the patient was on atropine, which could have precipitated parotitis, atropine given as the patient was spitting and hypersalivating. Following current admission, laboratory studies included a CBC with WBC 11.3, normal coagulation panel, normal urinalysis. Her chemistry panel revealed BUN of 40, creatinine 1.3. Elevated BNP 587. Albumin 3.0. BNP during hospitalization increased up to 42,020, normal B12, folate, and normal thyroid function. Her imaging studies included CT scan of the brain without contrast. This revealed moderate atrophy, presence of chronic small vessel disease. No evidence of acute abnormalities. No midline shift. No hemorrhage. CT scan of the facial bones has evidence of left parotitis. No adenopathy. A CT angio of the chest reveals no obvious central pulmonary embolism. There was dilated esophagus, suspect achalasia. Her latest chest x-ray unchanged with opacity of left lung base, which is likely a combination of pleural fluid, atelectasis, and infiltrate. There is right paratracheal mass opacity demonstrated on recent CT scan and represents dilated esophagus. Surgical clips noted in the right lung apex. The patient maintained on IV fluids and antibiotics. She reported to have mild aspiration. A Code Blue was called. She was brought to observation room. PAST MEDICAL HISTORY: The patient has a history of dementia in the last 5 years, significant progression of symptomatology. She has a history of chronic anemia, B12 deficiency. MEDICATIONS: Her treatment prior to admission included Eliquis, vitamin D, vitamin B12 supplements, donepezil 10 mg, furosemide, Namenda 5 mg twice a day, potassium, and atropine drops. Current treatment includes vancomycin, Solu-Medrol, lorazepam p.r.n., famotidine, Lovenox, albuterol, and IV fluids. ALLERGIES: Acetaminophen, codeine, hydrocodone, morphine, and tetrazine. REVIEW OF SYMPTOMS: Unable to obtain due the patient's status. PHYSICAL EXAMINATION: GENERAL: A well-developed, well-nourished elderly female who has been aggressive, her son is at bedside. VITAL SIGNS: Pulse rate 103, blood pressure 127/67, and afebrile. HEENT: Head, normocephalic. There is no evidence of trauma. Eyes, ears, and throat are clear. NECK: Supple. No meningeal signs. There is left upper sided parotitis noted. EXTREMITIES: Upper and lower extremities without clubbing, cyanosis, or edema. Peripheral pulses 1+ symmetric. MENTAL STATUS: She is alert, oriented to her name only. She was having difficulty recalling son's name. She has a poor comprehension, but able to follow only few simple commands. Incoherent, confused, and disoriented. CRANIAL NERVE II: Pupils both responding to light and accommodation. Extraocular movements intact. No nystagmus. CRANIAL NERVE V: Normal corneal responses. CRANIAL NERVE VII: No facial asymmetry. CRANIAL NERVES VIII THROUGH XII: Within normal limits. MOTOR EXAMINATION: There was intermittent fine resting tremor of both hands. Deep tendon reflexes 1+ bilaterally symmetric. SENSORY EXAMINATION: Withdrawing to pin stimulation. GAIT: Not tested. IMPRESSION: 1. Exaggerated physiological tremor due to underlying infection, rule out essential tremor exacerbation. 2. Senile dementia, advanced. 3. Rule out dysphagia. 4. Rule out pneumonia. 5. Parotitis. 6. Anemia. RECOMMENDATIONS: Tremor is not disabling and most likely represents underlying physical stress, thus expected to gradually improve. The patient displayed today signs of dysphagia, swallow study to be obtained. The patient has no evidence of seizure disorder. Dementia, advanced and would not respond to Namenda and donepezil. Her treatment should include . Continue with the supportive and palliative care. Discussed the patient's status with her son. Thank you for allowing me to see this interesting patient in neurological consultation. Phillip Mendes M.D. DR: VIKY JOB#: [id number] CC:
[2017-09-30 06:10] LABS: ALANINE AMINOTRANSFERASE 20 U/L (12-78); ALBUMIN 2.6 G/DL (3.4-5.0); ALBUMIN/GLOBULIN RATIO 0.7 (1.0-2.7); ALKALINE PHOSPHATASE 53 U/L (46-116); ANION GAP 8 mmol/L (5-15); ASPARTATE AMINO TRANSFERASE 19 U/L (15-37); BILIRUBIN,TOTAL 0.2 MG/DL (0.2-1.0); BLOOD UREA NITROGEN 30 mg/dL (7-18); CALCIUM 8.6 MG/DL (8.5-10.1); CARBON DIOXIDE 26 MMOL/L (21-32); CHLORIDE 108 MMOL/L (98-107); CREATININE 1.2 MG/DL (0.55-1.30); POTASSIUM 4.2 MMOL/L (3.5-5.1); SODIUM 142 MMOL/L (136-145)
[2017-09-30 08:00] VITALS: BP 161/80
--- NOTE | 2017-09-30 08:20 | Pulmonology Progress Note ---
Assessment/Plan Problems: (1) Pneumonia (2) Parotiditis (3) Dementia Assessment/Plan getting better, smiling GENIE monitoring check cxr respiratory treatment check sputum iv abx check cutlrues chest pt titrate fio2 to sat of 92% Subjective ROS Limited/Unobtainable: No Constitutional: Reports: no symptoms HEENT: Repors: no symptoms Respiratory: Reports: no symptoms Allergies: Coded Allergies: ACETAMINOPHEN (Verified Allergy, Unknown, 09/26/17) CODEINE (Verified Allergy, Unknown, 09/26/17) HYDROCODONE (Verified Allergy, Unknown, 09/26/17) MORPHINE (Verified Allergy, Unknown, 09/26/17) Uncoded Allergies: tartrazine (Allergy, Unknown, 09/26/17) Objective Last 24 Hour Vital Signs Date Time Temp Pulse Resp B/P (MAP) Pulse Ox O2 Delivery O2 Flow Rate FiO2 09/30/17 08:00 97.9 105 16 161/80 82 Nasal Cannula 3.0 97.9 09/30/17 07:02 Nasal Cannula 3.0 32 09/30/17 07:02 97 Nasal Cannula 3.0 32 09/30/17 06:52 76 18 97 Nasal Cannula 3.0 32 09/30/17 06:42 74 20 95 Nasal Cannula 3.0 32 09/30/17 04:00 80 09/30/17 04:00 97.9 86 20 125/60 96 Nasal Cannula 3.0 97.9 09/30/17 00:05 74 20 95 Nasal Cannula 3.0 32 09/30/17 00:04 72 20 93 Nasal Cannula 3.0 32 09/30/17 00:00 87 09/30/17 00:00 97.7 93 24 135/73 95 Nasal Cannula 3.0 97.7 09/29/17 20:00 83 09/29/17 20:00 98.1 87 20 130/58 94 Nasal Cannula 3.0 98.1 09/29/17 19:49 77 20 96 Nasal Cannula 3.0 32 09/29/17 19:48 95 Nasal Cannula 3.0 32 09/29/17 19:48 Nasal Cannula 3.0 32 09/29/17 19:48 75 20 95 Nasal Cannula 3.0 32 09/29/17 16:22 100 09/29/17 16:10 97.8 103 22 127/67 Room Air 3.0 97.8 09/29/17 16:10 97.8 103 22 127/67 Nasal Cannula 3.0 97.8 09/29/17 15:54 97.7 107 20 123/106 94 Nasal Cannula 3.0 97.7 09/29/17 13:35 92 26 94 Non-Rebreather 15.0 100 09/29/17 13:28 26 149/70 Non-Rebreather 15.0 09/29/17 13:25 28 09/29/17 13:23 92 22 88 Nasal Cannula 2.0 28 09/29/17 12:00 97.9 114 19 127/70 93 Room Air 3.0 97.9 09/29/17 11:00 207.5 70 14 98 09/29/17 10:58 77 99 09/29/17 10:45 98.0 70 20 127/66 95 Nasal Cannula 3.0 98.0 09/29/17 10:30 70 20 127/63 95 Nasal Cannula 3.0 09/29/17 10:15 71 20 137/64 95 Nasal Cannula 3.0 09/29/17 10:10 98.0 82 20 115/69 95 Nasal Cannula 3.0 98.0 09/29/17 08:59 78 18 95 Nasal Cannula 2.0 28 09/29/17 08:58 95 Nasal Cannula 3.0 32 09/29/17 08:58 32 09/29/17 08:58 Nasal Cannula 3.0 32 Intake and Output 09/29/17 09/30/17 19:00 07:00 Intake Total 835.000 ml 650 ml Output Total 400 ml Balance 835.000 ml 250 ml Intake Oral 170 ml IV Total 665.000 ml 650 ml Output Urine Total 400 ml # Voids 1 Objective General Appearance: WD/WN Lines, tubes and drains: peripheral HEENT: normocephalic, atraumatic Neck: non-tender, normal alignment Respiratory/Chest: chest wall non-tender, lungs rhonchi Cardiovascular/Chest: normal peripheral pulses, normal rate Abdomen: normal bowel sounds, non tender Genitourinary/Rectal: normal genital exam, normal rectal exam Extremities: normal range of motion, non-tender Skin Exam: normal pigmentation 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 Laboratory Tests 09/29/17 13:55: Arterial Blood pH 7.360, Arterial Blood Partial Pressure CO2 46.2H, Arterial Blood Partial Pressure O2 72.2L, Arterial Blood HCO3 26.0, Arterial Blood Oxygen Saturation 94.6, Arterial Blood Base Excess 0.4, Robbie Test Positive 09/29/17 16:00: White Blood Count 17.4H, Red Blood Count 3.86L, Hemoglobin 12.4, Hematocrit 38.3 , Mean Corpuscular Volume 99, Mean Corpuscular Hemoglobin 32.2H, Mean Corpuscular Hemoglobin Concent 32.4, Red Cell Distribution Width 15.3H, Platelet Count 311, Mean Platelet Volume 8.3, Neutrophils (%) (Auto) , Lymphocytes (%) (Auto) , Monocytes (%) (Auto) , Eosinophils (%) (Auto) , Basophils (%) (Auto) , Differential Total Cells Counted 100, Neutrophils % ( Manual) 95H, Lymphocytes % (Manual) 4L, Monocytes % (Manual) 1, Eosinophils % ( Manual) 0, Basophils % (Manual) 0, Band Neutrophils 0, Platelet Estimate Adequate, Platelet Morphology Normal, Hypochromasia 1+, Anisocytosis 1+ 09/29/17 23:00: Urine Color Brown, Urine Appearance Clear, Urine pH 5, Urine Specific [place] 1.020, Urine Protein 1+H, Urine Glucose (UA) Negative, Urine Ketones Negative, Urine Occult Blood Negative, Urine Nitrite Negative, Urine Bilirubin Negative, Urine Urobilinogen Normal, Urine Leukocyte Esterase 1+H, Urine RBC 0-2, Urine WBC 2-4, Urine Squamous Epithelial Cells Few, Urine Bacteria Few, Urine Yeast ModerateH, Urine Eosinophils None seen, Urine Random Sodium < 10L, Urine Potassium Timed 78H 09/30/17 03:50: White Blood Count 14.4H, Red Blood Count 3.47L, Hemoglobin 11.2L, Hematocrit 34.4L, Mean Corpuscular Volume 99, Mean Corpuscular Hemoglobin 32.4H, Mean Corpuscular Hemoglobin Concent 32.7, Red Cell Distribution Width 15.2H, Platelet Count 321, Mean Platelet Volume 8.3, Neutrophils (%) (Auto) , Lymphocytes (%) (Auto) , Monocytes (%) (Auto) , Eosinophils (%) (Auto) , Basophils (%) (Auto) , Neutrophils % (Manual) [Pending], Lymphocytes % (Manual) [Pending], Platelet Estimate [Pending], Platelet Morphology [Pending], Sodium Level 142, Potassium Level 4.2, Chloride Level 108H, Carbon Dioxide Level 26, Anion Gap 8, Blood Urea Nitrogen 30H, Creatinine 1.2, Estimat Glomerular Filtration Rate , Glucose Level 119H, Calcium Level 8.6, Total Bilirubin 0.2, Aspartate Amino Transf (AST/SGOT) 19, Alanine Aminotransferase (ALT/SGPT) 20, Alkaline Phosphatase 53, Pro-B-Type Natriuretic Peptide 2902H, Total Protein 6.2L, Albumin 2.6L, Globulin 3.6, Albumin/Globulin Ratio 0.7L Current Medications Medications (Trade) Dose Ordered Sig/Rambo Route PRN Reason Start Time Stop Time Status Last Admin Dose Admin Albuterol/ Ipratropium (Albuterol/ Ipratropium) 3 ml Q6HRT HHN 09/29/17 19:00 10/02/17 06:59 09/30/17 06:42 Dextrose (Dextrose 50%) STAT PRN IV Hypoglycemia 09/29/17 14:30 10/28/17 14:29 Enoxaparin Sodium (Lovenox) 30 mg Q24H SUBQ 09/30/17 09:00 10/27/17 08:59 Famotidine (Pepcid) 20 mg BID ORAL 09/29/17 18:00 10/27/17 08:59 Iron Sucrose 100 mg/Sodium Chloride 60 ml @ 240 mls/hr BEDTIME IV 09/29/17 21:00 09/30/17 21:01 09/29/17 21:18 Levofloxacin 50 ml @ 50 mls/hr Q24H IVPB 09/29/17 23:00 10/03/17 22:59 09/29/17 22:12 Lorazepam (Ativan 2mg/ml 1ml) 0.5 mg Q4H PRN IV For Anxiety 09/29/17 14:15 10/04/17 18:14 09/29/17 15:55 Methylprednisolone Sodium Succinate (Solu-MEDROL) 40 mg EVERY 6 HOURS IVP 09/29/17 18:00 10/27/17 11:59 09/30/17 05:09 Nitroglycerin (Ntg) 0.4 mg Q5M PRN SL Prn Chest Pain 09/29/17 14:15 10/27/17 04:44 Pneumococcal Polyvalent Vaccine (Pneumovax) 0.5 ml ONCE ONCE IM 09/29/17 14:15 09/28/18 04:46 UNV Sodium Chloride 1,000 ml @ 30 mls/hr Q24H IV 09/29/17 15:50 10/29/17 15:49 09/29/17 15:56 Vancomycin HCl (Vanco rx to dose) 1 ea DAILY PRN MISC Per rx protocol 09/30/17 09:00 10/27/17 18:59 Vancomycin HCl 1 gm/Dextrose 275 ml @ 183.708 mls/hr Q36H IVPB 09/29/17 15:00 10/04/17 14:59 09/29/17 17:14 BHAVESH MRAION Sep 30, 2017 08:19
[2017-09-30] MEDS: Enoxaparin 30mg Inj SUBQ SCH (09:42)
--- NOTE | 2017-09-30 10:24 | Diagnostic Imaging Report ---
Indication: Shortness of breath Technique: XRAY Chest 1v Comparison: 09/29/2017 Findings: Cardiomediastinal silhouette is stable. Atherosclerotic changes are present. Lungs are unchanged without new infiltrates. Thoracic esophagus is again dilated with air and debris. Impression: No significant change from 09/29/2017.
--- NOTE | 2017-09-30 11:09 | General Progress Note ---
Assessment/Plan Assessment/Plan 1. Chronic obstructive pulmonary disease exacerbation. --> To be seen by Pulmonary team. We started her on Keflex. --> Closely monitor. Pulmonary treatments have been started. 2. Pneumonia history, status post treatment in the past with antibiotics. --> I have consulted ID Service as well. 3. Tremor, shaking, unsure if this was a seizure episode and I have consulted the patient with Neurology, Dr. Mendes. 4. Dementia. Closely monitor. Neurology Service to see if the patient needs to start any medications. --> CT scan of the head did not show any acute intracranial pathology. 5. Left pleural effusion, to be seen again by Dr. Gandhi. 6. Leukocytosis, likely secondary to infection. --> Ongoing antibiotics. --> Worsening. Subjective Date patient seen: Sep 29, 2017 Constitutional: Denies: no symptoms, chills, diaphoresis, fever, malaise, weakness, other HEENT: Denies: no symptoms, eye pain, blurred vision, tearing, double vision, ear pain, ear discharge, nose pain, nose congestion, throat pain, throat swelling, mouth pain, mouth swelling, other Cardiovascular: Denies: no symptoms, chest pain, edema, irregular heart rate, lightheadedness, palpitations, syncope, other Respiratory: Denies: no symptoms, cough, orthopnea, shortness of breath, SOB with excertion, SOB at rest, sputum, stridor, wheezing, other Gastrointestinal/Abdominal: Denies: no symptoms, abdomen distended, abdominal pain, black stools, tarry stools, blood in stool, constipated, diarrhea, difficulty swallowing, nausea, poor appetite, poor fluid intake, rectal bleeding , vomiting, other Genitourinary: Denies: no symptoms, burning, discharge, frequency, flank pain, hematuria, incontinence, pain, urgency, other Neurologic/Psychiatric: Denies: no symptoms, anxiety, depressed, emotional problems, headache, numbness, paresthesia, pre-existing deficit, seizure, tingling, tremors, weakness, other Allergies: Coded Allergies: ACETAMINOPHEN (Verified Allergy, Unknown, 09/26/17) CODEINE (Verified Allergy, Unknown, 09/26/17) HYDROCODONE (Verified Allergy, Unknown, 09/26/17) MORPHINE (Verified Allergy, Unknown, 09/26/17) Uncoded Allergies: tartrazine (Allergy, Unknown, 09/26/17) Subjective Leukocytosis worsened from yesterday. Objective Last 24 Hour Vital Signs Date Time Temp Pulse Resp B/P (MAP) Pulse Ox O2 Delivery O2 Flow Rate FiO2 09/30/17 08:00 97.9 105 16 161/80 82 Nasal Cannula 3.0 97.9 09/30/17 07:45 96 09/30/17 07:02 Nasal Cannula 3.0 32 09/30/17 07:02 97 Nasal Cannula 3.0 32 09/30/17 06:52 76 18 97 Nasal Cannula 3.0 32 09/30/17 06:42 74 20 95 Nasal Cannula 3.0 32 09/30/17 04:00 80 09/30/17 04:00 97.9 86 20 125/60 96 Nasal Cannula 3.0 97.9 09/30/17 00:05 74 20 95 Nasal Cannula 3.0 32 09/30/17 00:04 72 20 93 Nasal Cannula 3.0 32 09/30/17 00:00 87 09/30/17 00:00 97.7 93 24 135/73 95 Nasal Cannula 3.0 97.7 09/29/17 20:00 83 09/29/17 20:00 98.1 87 20 130/58 94 Nasal Cannula 3.0 98.1 09/29/17 19:49 77 20 96 Nasal Cannula 3.0 32 09/29/17 19:48 95 Nasal Cannula 3.0 32 09/29/17 19:48 Nasal Cannula 3.0 32 09/29/17 19:48 75 20 95 Nasal Cannula 3.0 32 09/29/17 16:22 100 09/29/17 16:10 97.8 103 22 127/67 Room Air 3.0 97.8 09/29/17 16:10 97.8 103 22 127/67 Nasal Cannula 3.0 97.8 09/29/17 15:54 97.7 107 20 123/106 94 Nasal Cannula 3.0 97.7 09/29/17 13:35 92 26 94 Non-Rebreather 15.0 100 09/29/17 13:28 26 149/70 Non-Rebreather 15.0 09/29/17 13:25 28 09/29/17 13:23 92 22 88 Nasal Cannula 2.0 28 09/29/17 12:00 97.9 114 19 127/70 93 Room Air 3.0 97.9 Intake and Output 09/29/17 09/30/17 19:00 07:00 Intake Total 835.000 ml 680 ml Output Total 400 ml Balance 835.000 ml 280 ml Intake Oral 170 ml IV Total 665.000 ml 680 ml Output Urine Total 400 ml # Voids 1 Laboratory Tests 09/29/17 13:55: Arterial Blood pH 7.360, Arterial Blood Partial Pressure CO2 46.2H, Arterial Blood Partial Pressure O2 72.2L, Arterial Blood HCO3 26.0, Arterial Blood Oxygen Saturation 94.6, Arterial Blood Base Excess 0.4, Robbie Test Positive 09/29/17 16:00: White Blood Count 17.4H, Red Blood Count 3.86L, Hemoglobin 12.4, Hematocrit 38.3 , Mean Corpuscular Volume 99, Mean Corpuscular Hemoglobin 32.2H, Mean Corpuscular Hemoglobin Concent 32.4, Red Cell Distribution Width 15.3H, Platelet Count 311, Mean Platelet Volume 8.3, Neutrophils (%) (Auto) , Lymphocytes (%) (Auto) , Monocytes (%) (Auto) , Eosinophils (%) (Auto) , Basophils (%) (Auto) , Differential Total Cells Counted 100, Neutrophils % ( Manual) 95H, Lymphocytes % (Manual) 4L, Monocytes % (Manual) 1, Eosinophils % ( Manual) 0, Basophils % (Manual) 0, Band Neutrophils 0, Platelet Estimate Adequate, Platelet Morphology Normal, Hypochromasia 1+, Anisocytosis 1+ 09/29/17 23:00: Urine Color Brown, Urine Appearance Clear, Urine pH 5, Urine Specific [place] 1.020, Urine Protein 1+H, Urine Glucose (UA) Negative, Urine Ketones Negative, Urine Occult Blood Negative, Urine Nitrite Negative, Urine Bilirubin Negative, Urine Urobilinogen Normal, Urine Leukocyte Esterase 1+H, Urine RBC 0-2, Urine WBC 2-4, Urine Squamous Epithelial Cells Few, Urine Bacteria Few, Urine Yeast ModerateH, Urine Eosinophils None seen, Urine Random Sodium < 10L, Urine Potassium Timed 78H 09/30/17 03:50: White Blood Count 14.4H, Red Blood Count 3.47L, Hemoglobin 11.2L, Hematocrit 34.4L, Mean Corpuscular Volume 99, Mean Corpuscular Hemoglobin 32.4H, Mean Corpuscular Hemoglobin Concent 32.7, Red Cell Distribution Width 15.2H, Platelet Count 321, Mean Platelet Volume 8.3, Neutrophils (%) (Auto) , Lymphocytes (%) (Auto) , Monocytes (%) (Auto) , Eosinophils (%) (Auto) , Basophils (%) (Auto) , Differential Total Cells Counted 100, Neutrophils % ( Manual) 93H, Lymphocytes % (Manual) 6L, Monocytes % (Manual) 1, Eosinophils % ( Manual) 0, Basophils % (Manual) 0, Band Neutrophils 0, Platelet Estimate Adequate, Platelet Morphology Normal, Anisocytosis 1+, Sodium Level 142, Potassium Level 4.2, Chloride Level 108H, Carbon Dioxide Level 26, Anion Gap 8, Blood Urea Nitrogen 30H, Creatinine 1.2, Estimat Glomerular Filtration Rate , Glucose Level 119H, Calcium Level 8.6, Total Bilirubin 0.2, Aspartate Amino Transf (AST/SGOT) 19, Alanine Aminotransferase (ALT/SGPT) 20, Alkaline Phosphatase 53, Pro-B-Type Natriuretic Peptide 2902H, Total Protein 6.2L, Albumin 2.6L, Globulin 3.6, Albumin/Globulin Ratio 0.7L Height (Feet): 5 Height (Inches): 2.00 Weight (Pounds): 133 General Appearance: confused Respiratory/Chest: decreased breath sounds Abdomen: non tender, soft Oleg Brown Sep 30, 2017 11:09
[2017-09-30 12:00] VITALS: BP 135/79
--- NOTE | 2017-09-30 15:51 | Infectious Diseases Prog Note ---
Assessment/Plan Assessment/Plan ASSESSMENT: The patient is an 87-year-old female with, Leukocytosis, ( on steroids ) improved Left parotitis improving Facial CT suggestive of left parotitis No evidence of pneumonia CT of the chest, no evidence of PE or infiltrate Afebrile. Rapid influenza A/B negative. CRP 1.8 CHF 3/9 SP EGD : Achalasia of esophagus ANDREI improved Dementia. History of pulmonary emboli History of back pain Depression PLAN: Cont patient on IV vancomycin and Levaquin d# 4 / 10 Monitor CBC. Monitor BMP. Monitor chest x-ray. Monitor cultures (blood) Subjective Allergies: Coded Allergies: ACETAMINOPHEN (Verified Allergy, Unknown, 09/26/17) CODEINE (Verified Allergy, Unknown, 09/26/17) HYDROCODONE (Verified Allergy, Unknown, 09/26/17) MORPHINE (Verified Allergy, Unknown, 09/26/17) Uncoded Allergies: tartrazine (Allergy, Unknown, 09/26/17) Subjective afebrile Objective Vital Signs Last 24 Hour Vital Signs Date Time Temp Pulse Resp B/P (MAP) Pulse Ox O2 Delivery O2 Flow Rate FiO2 09/30/17 13:53 73 18 96 Nasal Cannula 3.0 32 09/30/17 13:43 70 20 95 Nasal Cannula 3.0 32 09/30/17 12:00 97.3 79 16 135/79 86 Nasal Cannula 3.0 97.3 09/30/17 11:45 74 09/30/17 08:00 97.9 105 16 161/80 82 Nasal Cannula 3.0 97.9 09/30/17 07:45 96 09/30/17 07:02 Nasal Cannula 3.0 32 09/30/17 07:02 97 Nasal Cannula 3.0 32 09/30/17 06:52 76 18 97 Nasal Cannula 3.0 32 09/30/17 06:42 74 20 95 Nasal Cannula 3.0 32 09/30/17 04:00 80 09/30/17 04:00 97.9 86 20 125/60 96 Nasal Cannula 3.0 97.9 09/30/17 00:05 74 20 95 Nasal Cannula 3.0 32 09/30/17 00:04 72 20 93 Nasal Cannula 3.0 32 09/30/17 00:00 87 09/30/17 00:00 97.7 93 24 135/73 95 Nasal Cannula 3.0 97.7 09/29/17 20:00 83 09/29/17 20:00 98.1 87 20 130/58 94 Nasal Cannula 3.0 98.1 09/29/17 19:49 77 20 96 Nasal Cannula 3.0 32 09/29/17 19:48 95 Nasal Cannula 3.0 32 09/29/17 19:48 Nasal Cannula 3.0 32 09/29/17 19:48 75 20 95 Nasal Cannula 3.0 32 09/29/17 16:22 100 09/29/17 16:10 97.8 103 22 127/67 Room Air 3.0 97.8 09/29/17 16:10 97.8 103 22 127/67 Nasal Cannula 3.0 97.8 09/29/17 15:54 97.7 107 20 123/106 94 Nasal Cannula 3.0 97.7 Height (Feet): 5 Height (Inches): 2.00 Weight (Pounds): 133 HEENT: anicteric Respiratory/Chest: normal breath sounds Cardiovascular: regular rhythm Abdomen: no organomegaly Laboratory Tests Test 09/29/17 16:00 09/29/17 23:00 09/30/17 03:50 White Blood Count 17.4 K/UL (4.8-10.8) H 14.4 K/UL (4.8-10.8) H Red Blood Count 3.86 M/UL (4.20-5.40) L 3.47 M/UL (4.20-5.40) L Hemoglobin 12.4 G/DL (12.0-16.0) 11.2 G/DL (12.0-16.0) L Hematocrit 38.3 % (37.0-47.0) 34.4 % (37.0-47.0) L Mean Corpuscular Volume 99 FL (80-99) 99 FL (80-99) Mean Corpuscular Hemoglobin 32.2 PG (27.0-31.0) H 32.4 PG (27.0-31.0) H Mean Corpuscular Hemoglobin Concent 32.4 G/DL (32.0-36.0) 32.7 G/DL (32.0-36.0) Red Cell Distribution Width 15.3 % (11.6-14.8) H 15.2 % (11.6-14.8) H Platelet Count 311 K/UL (150-450) 321 K/UL (150-450) Mean Platelet Volume 8.3 FL (6.5-10.1) 8.3 FL (6.5-10.1) Neutrophils (%) (Auto) % (45.0-75.0) % (45.0-75.0) Lymphocytes (%) (Auto) % (20.0-45.0) % (20.0-45.0) Monocytes (%) (Auto) % (1.0-10.0) % (1.0-10.0) Eosinophils (%) (Auto) % (0.0-3.0) % (0.0-3.0) Basophils (%) (Auto) % (0.0-2.0) % (0.0-2.0) Differential Total Cells Counted 100 100 Neutrophils % (Manual) 95 % (45-75) H 93 % (45-75) H Lymphocytes % (Manual) 4 % (20-45) L 6 % (20-45) L Monocytes % (Manual) 1 % (1-10) 1 % (1-10) Eosinophils % (Manual) 0 % (0-3) 0 % (0-3) Basophils % (Manual) 0 % (0-2) 0 % (0-2) Band Neutrophils 0 % (0-8) 0 % (0-8) Platelet Estimate Adequate Adequate Platelet Morphology Normal Normal Hypochromasia 1+ Anisocytosis 1+ 1+ Urine Color Brown Urine Appearance Clear Urine pH 5 (4.5-8.0) Urine Specific [place] 1.020 (1.005-1.035) Urine Protein 1+ (NEGATIVE) H Urine Glucose (UA) Negative (NEGATIVE) Urine Ketones Negative (NEGATIVE) Urine Occult Blood Negative (NEGATIVE) Urine Nitrite Negative (NEGATIVE) Urine Bilirubin Negative (NEGATIVE) Urine Urobilinogen Normal MG/DL (0.0-1.0) Urine Leukocyte Esterase 1+ (NEGATIVE) H Urine RBC 0-2 /HPF (0 - 2) Urine WBC 2-4 /HPF (0 - 2) Urine Squamous Epithelial Cells Few /LPF (NONE/OCC) Urine Bacteria Few /HPF (NONE) Urine Yeast Moderate /HPF (NONE) H Urine Eosinophils None seen Urine Random Sodium < 10 mmol/L (20-110) L Urine Potassium Timed 78 mmol/L (12-62) H Sodium Level 142 MMOL/L (136-145) Potassium Level 4.2 MMOL/L (3.5-5.1) Chloride Level 108 MMOL/L (98-107) H Carbon Dioxide Level 26 MMOL/L (21-32) Anion Gap 8 mmol/L (5-15) Blood Urea Nitrogen 30 mg/dL (7-18) H Creatinine 1.2 MG/DL (0.55-1.30) Estimat Glomerular Filtration Rate mL/min (>60) Glucose Level 119 MG/DL (74-106) H Calcium Level 8.6 MG/DL (8.5-10.1) Total Bilirubin 0.2 MG/DL (0.2-1.0) Aspartate Amino Transf (AST/SGOT) 19 U/L (15-37) Alanine Aminotransferase (ALT/SGPT) 20 U/L (12-78) Alkaline Phosphatase 53 U/L (46-116) Pro-B-Type Natriuretic Peptide 2902 pg/mL (0-125) H Total Protein 6.2 G/DL (6.4-8.2) L Albumin 2.6 G/DL (3.4-5.0) L Globulin 3.6 g/dL Albumin/Globulin Ratio 0.7 (1.0-2.7) L Current Medications Medications (Trade) Dose Ordered Sig/Rambo Route PRN Reason Start Time Stop Time Status Last Admin Dose Admin Albuterol/ Ipratropium (Albuterol/ Ipratropium) 3 ml Q6HRT HHN 09/29/17 19:00 10/02/17 06:59 09/30/17 13:43 Dextrose (Dextrose 50%) STAT PRN IV Hypoglycemia 09/29/17 14:30 10/28/17 14:29 Enoxaparin Sodium (Lovenox) 30 mg Q24H SUBQ 09/30/17 09:00 10/27/17 08:59 09/30/17 09:42 Famotidine (Pepcid) 20 mg BID ORAL 09/29/17 18:00 10/27/17 08:59 09/30/17 09:41 Iron Sucrose 100 mg/Sodium Chloride 60 ml @ 240 mls/hr BEDTIME IV 09/29/17 21:00 09/30/17 21:01 09/29/17 21:18 Levofloxacin 50 ml @ 50 mls/hr Q24H IVPB 09/29/17 23:00 10/03/17 22:59 09/29/17 22:12 Lorazepam (Ativan 2mg/ml 1ml) 0.5 mg Q4H PRN IV For Anxiety 09/29/17 14:15 10/04/17 18:14 09/29/17 15:55 Methylprednisolone Sodium Succinate (Solu-MEDROL) 40 mg EVERY 6 HOURS IVP 09/29/17 18:00 10/27/17 11:59 09/30/17 12:59 Nitroglycerin (Ntg) 0.4 mg Q5M PRN SL Prn Chest Pain 09/29/17 14:15 10/27/17 04:44 Sodium Chloride 1,000 ml @ 30 mls/hr Q24H IV 09/29/17 15:50 10/29/17 15:49 09/29/17 15:56 Vancomycin HCl (Vanco rx to dose) 1 ea DAILY PRN MISC Per rx protocol 09/30/17 09:00 10/27/17 18:59 Vancomycin HCl 1 gm/Dextrose 275 ml @ 183.708 mls/hr Q36H IVPB 09/29/17 15:00 10/04/17 14:59 09/29/17 17:14 NATE RAMOS M.D. Sep 30, 2017 15:51
[2017-09-30 16:00] VITALS: BP 137/77
[2017-09-30] MEDS ORDERED: D5NS 1000ml IV ONE (16:25)
[2017-09-30] MEDS ORDERED: 1/2 NS 1000ml IV ONE (16:25)
--- NOTE | 2017-09-30 17:35 | General Progress Note ---
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 SNOMED: 78197300 (2) Dyspnea ICD Codes: R06.00 - Dyspnea, unspecified SNOMED: 259091398 (3) Encephalitis ICD Codes: G04.90 - Encephalitis and encephalomyelitis, unspecified Recommendations po diet elevate HOB EGD with Botox in future Subjective Allergies: Coded Allergies: ACETAMINOPHEN (Verified Allergy, Unknown, 09/26/17) CODEINE (Verified Allergy, Unknown, 09/26/17) HYDROCODONE (Verified Allergy, Unknown, 09/26/17) MORPHINE (Verified Allergy, Unknown, 09/26/17) Uncoded Allergies: tartrazine (Allergy, Unknown, 09/26/17) Subjective Thin, confused ate well this am Objective Last 24 Hour Vital Signs Date Time Temp Pulse Resp B/P (MAP) Pulse Ox O2 Delivery O2 Flow Rate FiO2 09/30/17 16:00 70 09/30/17 16:00 98.1 97 16 137/77 82 Nasal Cannula 3.0 98.1 09/30/17 13:53 73 18 96 Nasal Cannula 3.0 32 09/30/17 13:43 70 20 95 Nasal Cannula 3.0 32 09/30/17 12:00 97.3 79 16 135/79 86 Nasal Cannula 3.0 97.3 09/30/17 11:45 74 09/30/17 08:00 97.9 105 16 161/80 82 Nasal Cannula 3.0 97.9 09/30/17 07:45 96 09/30/17 07:02 Nasal Cannula 3.0 32 09/30/17 07:02 97 Nasal Cannula 3.0 32 09/30/17 06:52 76 18 97 Nasal Cannula 3.0 32 09/30/17 06:42 74 20 95 Nasal Cannula 3.0 32 09/30/17 04:00 80 09/30/17 04:00 97.9 86 20 125/60 96 Nasal Cannula 3.0 97.9 09/30/17 00:05 74 20 95 Nasal Cannula 3.0 32 09/30/17 00:04 72 20 93 Nasal Cannula 3.0 32 09/30/17 00:00 87 09/30/17 00:00 97.7 93 24 135/73 95 Nasal Cannula 3.0 97.7 09/29/17 20:00 83 09/29/17 20:00 98.1 87 20 130/58 94 Nasal Cannula 3.0 98.1 09/29/17 19:49 77 20 96 Nasal Cannula 3.0 32 09/29/17 19:48 95 Nasal Cannula 3.0 32 09/29/17 19:48 Nasal Cannula 3.0 32 09/29/17 19:48 75 20 95 Nasal Cannula 3.0 32 Intake and Output 09/29/17 09/30/17 19:00 07:00 Intake Total 835.000 ml 680 ml Output Total 400 ml Balance 835.000 ml 280 ml Intake Oral 170 ml IV Total 665.000 ml 680 ml Output Urine Total 400 ml # Voids 1 Laboratory Tests 09/29/17 23:00: Urine Color Brown, Urine Appearance Clear, Urine pH 5, Urine Specific [place] 1.020, Urine Protein 1+H, Urine Glucose (UA) Negative, Urine Ketones Negative, Urine Occult Blood Negative, Urine Nitrite Negative, Urine Bilirubin Negative, Urine Urobilinogen Normal, Urine Leukocyte Esterase 1+H, Urine RBC 0-2, Urine WBC 2-4, Urine Squamous Epithelial Cells Few, Urine Bacteria Few, Urine Yeast ModerateH, Urine Eosinophils None seen, Urine Random Sodium < 10L, Urine Potassium Timed 78H 09/30/17 03:50: White Blood Count 14.4H, Red Blood Count 3.47L, Hemoglobin 11.2L, Hematocrit 34.4L, Mean Corpuscular Volume 99, Mean Corpuscular Hemoglobin 32.4H, Mean Corpuscular Hemoglobin Concent 32.7, Red Cell Distribution Width 15.2H, Platelet Count 321, Mean Platelet Volume 8.3, Neutrophils (%) (Auto) , Lymphocytes (%) (Auto) , Monocytes (%) (Auto) , Eosinophils (%) (Auto) , Basophils (%) (Auto) , Differential Total Cells Counted 100, Neutrophils % ( Manual) 93H, Lymphocytes % (Manual) 6L, Monocytes % (Manual) 1, Eosinophils % ( Manual) 0, Basophils % (Manual) 0, Band Neutrophils 0, Platelet Estimate Adequate, Platelet Morphology Normal, Anisocytosis 1+, Sodium Level 142, Potassium Level 4.2, Chloride Level 108H, Carbon Dioxide Level 26, Anion Gap 8, Blood Urea Nitrogen 30H, Creatinine 1.2, Estimat Glomerular Filtration Rate , Glucose Level 119H, Calcium Level 8.6, Total Bilirubin 0.2, Aspartate Amino Transf (AST/SGOT) 19, Alanine Aminotransferase (ALT/SGPT) 20, Alkaline Phosphatase 53, Pro-B-Type Natriuretic Peptide 2902H, Total Protein 6.2L, Albumin 2.6L, Globulin 3.6, Albumin/Globulin Ratio 0.7L Height (Feet): 5 Height (Inches): 2.00 Weight (Pounds): 133 Objective Thin elderly WW NCAT Supple CTA RRR Abd soft ND NT no edema RITCHIE PINO Sep 30, 2017 17:35
[2017-09-30 20:00] VITALS: BP 127/71
[2017-09-30] MEDS: Iron Sucrose 100 MG in NS 55 ML IV SCH (21:07)
--- NOTE | 2017-09-30 21:11 | Wound Care Consultation ---
Wound Assessment Wound Assessment #1: Wound Number: 1 Wound Present on Admission: No New Wound: Yes Status Change of Wound: No Wound Location Body Site Modif: right Wound Location Body Site: trochanter Wound Type: pressure ulcer Papito Test: Does not Papito Pressure Ulcer Stage: Deep Tissue Injury Wound Thickness: Full Thickness Wound Length: 4.0 Wound Width: 3.0 Wound Depth: utd Percent of Wound Purple/Maroon: 100 Wound Drainage Amount: None Wound Drainage Odor: None/Absent Tissue Surrounding Wound: Intact Wound General Appearance: Reddened - purple/maroon Wound Assessment #2: Wound Number: 2 Wound Present on Admission: No New Wound: Yes Status Change of Wound: No Wound Location Body Site Modif: mid Wound Location Body Site: other - Sacrococcygeal Wound Type: pressure ulcer Papito Test: Does not Papito Pressure Ulcer Stage: Deep Tissue Injury - SDTI Wound Thickness: Full Thickness Wound Length: 5.5 Wound Width: 4.0 Wound Depth: UTD Percent of Wound Purple/Maroon: 100 Wound Drainage Amount: None Wound Drainage Odor: None/Absent Tissue Surrounding Wound: Intact Wound General Appearance: Reddened - purple Wound Assessment #3: Wound Number: 3 Wound Present on Admission: No New Wound: Yes Status Change of Wound: No Wound Location Body Site Modif: left Wound Location Body Site: buttocks Wound Type: pressure ulcer Papito Test: Does not Papito Pressure Ulcer Stage: I Wound Length: 4.5 Wound Width: 2.5 Percent of Wound Axis/Red: 100 Wound Drainage Amount: None Wound Drainage Odor: None/Absent Tissue Surrounding Wound: Intact Wound General Appearance: Reddened Wound Assessment #4: Wound Number: 4 Wound Present on Admission: No New Wound: Yes Status Change of Wound: No Wound Location Body Site Modif: right Wound Location Body Site: buttocks Wound Type: pressure ulcer Papito Test: Does not Papito Pressure Ulcer Stage: I Wound Length: 4.0 Wound Width: 2.0 Percent of Wound Axis/Red: 100 Wound Drainage Amount: None Wound Drainage Odor: None/Absent Tissue Surrounding Wound: Intact Wound General Appearance: Reddened Wound Comment #1 Right trochanter DTI pressure ulcer #2 Right buttock stage I pressure ulcer #3 Left buttock stage I pressure ulcer #4 Sacrococcygeal SDTI pressure ulcer Recommendation -Local wound care per protocol -Keep clean and dry -Turn and reposition -Offload both heels -Heel protector on both heels -Optimize nutrition -Low air loss mattress -Assess and f/u accordingly for any changes JUAN ROBERSON RN Sep 30, 2017 21:11
[2017-10-01] VITALS: BP 134/74
[2017-10-01] MEDS: Solu-MEDROL 40mg Inj IVP SCH ×2 (00:06→07:00)
--- NOTE | 2017-10-01 00:07 | General Progress Note ---
Assessment/Plan Problem List: (1) mdd (2) mdd Assessment & Plan: mdd dementia with behavioral dist -zyprexa 2.5mg qhs/prn Assessment/Plan mdd dementia with behavioral dist -zyprexa 2.5mg qhs/prn Subjective Neurologic/Psychiatric: Reports: anxiety, depressed, emotional problems Allergies: Coded Allergies: ACETAMINOPHEN (Verified Allergy, Unknown, 09/26/17) CODEINE (Verified Allergy, Unknown, 09/26/17) HYDROCODONE (Verified Allergy, Unknown, 09/26/17) MORPHINE (Verified Allergy, Unknown, 09/26/17) Uncoded Allergies: tartrazine (Allergy, Unknown, 09/26/17) Objective Last 24 Hour Vital Signs Date Time Temp Pulse Resp B/P (MAP) Pulse Ox O2 Delivery O2 Flow Rate FiO2 09/30/17 20:00 98.8 76 20 127/71 96 Nasal Cannula 98.8 09/30/17 19:14 91 21 98 Nasal Cannula 3.0 32 09/30/17 19:08 Nasal Cannula 3.0 32 09/30/17 19:08 88 18 97 Nasal Cannula 3.0 32 09/30/17 19:08 98 Nasal Cannula 3.0 32 09/30/17 16:00 70 09/30/17 16:00 98.1 97 16 137/77 82 Nasal Cannula 3.0 98.1 09/30/17 13:53 73 18 96 Nasal Cannula 3.0 32 09/30/17 13:43 70 20 95 Nasal Cannula 3.0 32 09/30/17 12:00 97.3 79 16 135/79 86 Nasal Cannula 3.0 97.3 09/30/17 11:45 74 09/30/17 08:00 97.9 105 16 161/80 82 Nasal Cannula 3.0 97.9 09/30/17 07:45 96 09/30/17 07:02 Nasal Cannula 3.0 32 09/30/17 07:02 97 Nasal Cannula 3.0 32 09/30/17 06:52 76 18 97 Nasal Cannula 3.0 32 09/30/17 06:42 74 20 95 Nasal Cannula 3.0 32 09/30/17 04:00 80 09/30/17 04:00 97.9 86 20 125/60 96 Nasal Cannula 3.0 97.9 Intake and Output 09/30/17 10/01/17 19:00 07:00 Intake Total 1130 ml Output Total 250 ml 100 ml Balance 880 ml -100 ml Intake Oral 800 ml IV Total 330 ml Output Urine Total 250 ml 100 ml Laboratory Tests 09/30/17 03:50: White Blood Count 14.4H, Red Blood Count 3.47L, Hemoglobin 11.2L, Hematocrit 34.4L, Mean Corpuscular Volume 99, Mean Corpuscular Hemoglobin 32.4H, Mean Corpuscular Hemoglobin Concent 32.7, Red Cell Distribution Width 15.2H, Platelet Count 321, Mean Platelet Volume 8.3, Neutrophils (%) (Auto) , Lymphocytes (%) (Auto) , Monocytes (%) (Auto) , Eosinophils (%) (Auto) , Basophils (%) (Auto) , Differential Total Cells Counted 100, Neutrophils % ( Manual) 93H, Lymphocytes % (Manual) 6L, Monocytes % (Manual) 1, Eosinophils % ( Manual) 0, Basophils % (Manual) 0, Band Neutrophils 0, Platelet Estimate Adequate, Platelet Morphology Normal, Anisocytosis 1+, Sodium Level 142, Potassium Level 4.2, Chloride Level 108H, Carbon Dioxide Level 26, Anion Gap 8, Blood Urea Nitrogen 30H, Creatinine 1.2, Estimat Glomerular Filtration Rate , Glucose Level 119H, Calcium Level 8.6, Total Bilirubin 0.2, Aspartate Amino Transf (AST/SGOT) 19, Alanine Aminotransferase (ALT/SGPT) 20, Alkaline Phosphatase 53, Pro-B-Type Natriuretic Peptide 2902H, Total Protein 6.2L, Albumin 2.6L, Globulin 3.6, Albumin/Globulin Ratio 0.7L Height (Feet): 5 Height (Inches): 2.00 Weight (Pounds): 133 General Appearance: no apparent distress, confused, agitated Shane Garcia M.D. Oct 01, 2017 00:07
[2017-10-01] MEDS: Albuterol/Ipratropium 3ml neb HHN SCH ×4 (03:53→19:38)
[2017-10-01 04:00] VITALS: BP 130/71
[2017-10-01] MEDS: Vancomycin 1 GM in D5W 275 ML IVPB SCH (04:00)
[2017-10-01 05:22] LABS: HEMATOCRIT 33.6 % (37.0-47.0); MEAN CORPUSCULAR VOLUME 99 FL (80-99); PLATELET COUNT 293 K/UL (150-450); RED CELL DISTRIBUTION WIDTH 14.9 % (11.6-14.8); WHITE BLOOD COUNT 10.9 K/UL (4.8-10.8)
[2017-10-01 07:34] VITALS: BP 144/67
[2017-10-01 07:37] LABS: ALANINE AMINOTRANSFERASE 21 U/L (12-78); ALBUMIN 2.5 G/DL (3.4-5.0); ALBUMIN/GLOBULIN RATIO 0.9 (1.0-2.7); ALKALINE PHOSPHATASE 50 U/L (46-116); ANION GAP 6 mmol/L (5-15); ASPARTATE AMINO TRANSFERASE 20 U/L (15-37); BILIRUBIN,TOTAL 0.2 MG/DL (0.2-1.0); BLOOD UREA NITROGEN 27 mg/dL (7-18); CALCIUM 8.2 MG/DL (8.5-10.1); CARBON DIOXIDE 27 MMOL/L (21-32); CHLORIDE 109 MMOL/L (98-107); CREATININE 1.1 MG/DL (0.55-1.30); PHOSPHORUS 3.2 MG/DL (2.5-4.9); POTASSIUM 4.5 MMOL/L (3.5-5.1); SODIUM 142 MMOL/L (136-145)
[2017-10-01] MEDS: Docusate 100mg/10ml Liq ORAL SCH ×2 (08:48→17:00)
[2017-10-01] MEDS: Enoxaparin 30mg Inj SUBQ SCH (08:48)
[2017-10-01] MEDS ORDERED: Docusate 100mg/10ml Liq ORAL SCH (09:00)
--- NOTE | 2017-10-01 10:23 | Pulmonology Progress Note ---
Assessment/Plan Problems: (1) Pneumonia (2) Parotiditis (3) Dementia Assessment/Plan getting better, smiling might go back to med/surg check cxr, LLL infilotrate dc steroids respiratory treatment check sputum iv abx check cutlrues chest pt titrate fio2 to sat of 92% Subjective ROS Limited/Unobtainable: No Interval Events: comfortable, NAD Constitutional: Reports: no symptoms HEENT: Repors: no symptoms Allergies: Coded Allergies: ACETAMINOPHEN (Verified Allergy, Unknown, 09/26/17) CODEINE (Verified Allergy, Unknown, 09/26/17) HYDROCODONE (Verified Allergy, Unknown, 09/26/17) MORPHINE (Verified Allergy, Unknown, 09/26/17) Uncoded Allergies: tartrazine (Allergy, Unknown, 09/26/17) Objective Last 24 Hour Vital Signs Date Time Temp Pulse Resp B/P (MAP) Pulse Ox O2 Delivery O2 Flow Rate FiO2 10/01/17 07:34 97.3 83 20 144/67 95 Nasal Cannula 97.3 10/01/17 06:45 61 18 99 Nasal Cannula 3.0 32 10/01/17 06:35 60 16 96 Nasal Cannula 3.0 32 10/01/17 06:35 Nasal Cannula 3.0 32 10/01/17 06:35 96 Nasal Cannula 3.0 32 10/01/17 04:05 20 98 Nasal Cannula 3.0 10/01/17 04:00 97.2 83 20 130/71 98 Room Air 97.2 10/01/17 04:00 77 10/01/17 01:00 89 20 97 Nasal Cannula 3.0 32 10/01/17 01:00 93 22 98 Nasal Cannula 3.0 32 10/01/17 00:05 20 98 Nasal Cannula 3.0 10/01/17 00:00 73 10/01/17 00:00 97.7 79 20 134/74 98 Nasal Cannula 97.7 09/30/17 20:05 20 96 Nasal Cannula 3.0 09/30/17 20:00 98.8 76 20 127/71 96 Nasal Cannula 98.8 09/30/17 19:14 91 21 98 Nasal Cannula 3.0 32 09/30/17 19:08 Nasal Cannula 3.0 32 09/30/17 19:08 88 18 97 Nasal Cannula 3.0 32 3/10/18 19:08 98 Nasal Cannula 3.0 32 09/30/17 16:00 70 09/30/17 16:00 98.1 97 16 137/77 82 Nasal Cannula 3.0 98.1 09/30/17 13:53 73 18 96 Nasal Cannula 3.0 32 09/30/17 13:43 70 20 95 Nasal Cannula 3.0 32 09/30/17 12:00 97.3 79 16 135/79 86 Nasal Cannula 3.0 97.3 09/30/17 11:45 74 Intake and Output 09/30/17 10/01/17 19:00 07:00 Intake Total 1137.5 ml 715.000 ml Output Total 250 ml 500 ml Balance 887.5 ml 215.000 ml Intake Oral 800 ml IV Total 337.5 ml 715.000 ml Output Urine Total 250 ml 500 ml Objective General Appearance: WD/WN Lines, tubes and drains: peripheral HEENT: normocephalic, atraumatic Neck: non-tender, normal alignment Respiratory/Chest: chest wall non-tender, lungs rhonchi Cardiovascular/Chest: normal peripheral pulses, normal rate Abdomen: normal bowel sounds, non tender Genitourinary/Rectal: normal genital exam, normal rectal exam Extremities: normal range of motion, non-tender Skin Exam: normal pigmentation Neurologic: rib chopper II-XII grossly normal Microbiology Date/Time Source Procedure Growth Status 09/29/17 23:00 Urine,Clean Catch Urine Culture - Preliminary NO GROWTH Resulted Laboratory Tests 10/01/17 03:00: White Blood Count 10.9H, Red Blood Count 3.40L, Hemoglobin 11.0L, Hematocrit 33.6L, Mean Corpuscular Volume 99, Mean Corpuscular Hemoglobin 32.4H, Mean Corpuscular Hemoglobin Concent 32.8, Red Cell Distribution Width 14.9H, Platelet Count 293, Mean Platelet Volume 7.3, Neutrophils (%) (Auto) , Lymphocytes (%) (Auto) , Monocytes (%) (Auto) , Eosinophils (%) (Auto) , Basophils (%) (Auto) , Differential Total Cells Counted 100, Neutrophils % ( Manual) 90H, Lymphocytes % (Manual) 3L, Monocytes % (Manual) 7, Eosinophils % ( Manual) 0, Basophils % (Manual) 0, Band Neutrophils 0, Platelet Estimate Adequate, Platelet Morphology Normal, Hypochromasia 1+, Sodium Level 142, Potassium Level 4.5, Chloride Level 109H, Carbon Dioxide Level 27, Anion Gap 6, Blood Urea Nitrogen 27H, Creatinine 1.1, Estimat Glomerular Filtration Rate , Glucose Level 127H, Calcium Level 8.2L, Phosphorus Level 3.2, Magnesium Level 2.3, Total Bilirubin 0.2, Aspartate Amino Transf (AST/SGOT) 20, Alanine Aminotransferase (ALT/SGPT) 21, Alkaline Phosphatase 50, Total Protein 5.4L, Albumin 2.5L, Globulin 2.9, Albumin/Globulin Ratio 0.9L, Random Vancomycin Level 7.4 Current Medications Medications (Trade) Dose Ordered Sig/Rambo Route PRN Reason Start Time Stop Time Status Last Admin Dose Admin Albuterol/ Ipratropium (Albuterol/ Ipratropium) 3 ml Q6HRT HHN 09/29/17 19:00 10/02/17 06:59 10/01/17 06:35 Dextrose (Dextrose 50%) STAT PRN IV Hypoglycemia 09/29/17 14:30 10/28/17 14:29 Docusate Sodium (Colace) 100 mg BID ORAL 10/01/17 09:00 10/31/17 08:59 10/01/17 08:48 Enoxaparin Sodium (Lovenox) 30 mg Q24H SUBQ 09/30/17 09:00 10/27/17 08:59 10/01/17 08:48 Famotidine (Pepcid) 20 mg BID ORAL 09/29/17 18:00 10/27/17 08:59 10/01/17 08:48 Levofloxacin 50 ml @ 50 mls/hr Q24H IVPB 09/29/17 23:00 10/03/17 22:59 10/01/17 00:04 Lorazepam (Ativan 2mg/ml 1ml) 0.5 mg Q4H PRN IV For Anxiety 09/29/17 14:15 10/04/17 18:14 09/29/17 15:55 Methylprednisolone Sodium Succinate (Solu-MEDROL) 40 mg EVERY 6 HOURS IVP 09/29/17 18:00 10/27/17 11:59 10/01/17 07:00 Nitroglycerin (Ntg) 0.4 mg Q5M PRN SL Prn Chest Pain 09/29/17 14:15 10/27/17 04:44 Polyethylene Glycol (Miralax) 17 gm BEDTIME ORAL 10/01/17 21:00 10/31/17 20:59 Sodium Chloride 1,000 ml @ 30 mls/hr Q24H IV 09/29/17 15:50 10/29/17 15:49 09/30/17 17:45 Vancomycin HCl (Vanco rx to dose) 1 ea DAILY PRN MISC Per rx protocol 09/30/17 09:00 10/27/17 18:59 Vancomycin HCl 1 gm/Dextrose 275 ml @ 183.708 mls/hr Q36H IVPB 09/29/17 15:00 10/04/17 14:59 10/01/17 04:00 BHAVESH MARION Oct 01, 2017 10:23
--- NOTE | 2017-10-01 11:45 | General Progress Note ---
Assessment/Plan Assessment/Plan #. Leukocytosis, likely secondary to infection. --> Ongoing antibiotics. --> Improved from yesterday. #. Chronic obstructive pulmonary disease exacerbation. --> To be seen by Pulmonary team. We started her on Keflex. --> Closely monitor. Pulmonary treatments have been started. #. Pneumonia history, status post treatment in the past with antibiotics. --> I have consulted ID Service as well. #. Tremor, shaking, unsure if this was a seizure episode and I have consulted the patient with Neurology, Dr. Mendes. #. Dementia. Closely monitor. Neurology Service to see if the patient needs to start any medications. --> CT scan of the head did not show any acute intracranial pathology. #. Left pleural effusion, to be seen again by Dr. Gandhi. Subjective Date patient seen: Sep 30, 2017 Constitutional: Denies: no symptoms, chills, diaphoresis, fever, malaise, weakness, other HEENT: Denies: no symptoms, eye pain, blurred vision, tearing, double vision, ear pain, ear discharge, nose pain, nose congestion, throat pain, throat swelling, mouth pain, mouth swelling, other Cardiovascular: Denies: no symptoms, chest pain, edema, irregular heart rate, lightheadedness, palpitations, syncope, other Respiratory: Denies: no symptoms, cough, orthopnea, shortness of breath, SOB with excertion, SOB at rest, sputum, stridor, wheezing, other Gastrointestinal/Abdominal: Denies: no symptoms, abdomen distended, abdominal pain, black stools, tarry stools, blood in stool, constipated, diarrhea, difficulty swallowing, nausea, poor appetite, poor fluid intake, rectal bleeding , vomiting, other Genitourinary: Denies: no symptoms, burning, discharge, frequency, flank pain, hematuria, incontinence, pain, urgency, other Neurologic/Psychiatric: Denies: no symptoms, anxiety, depressed, emotional problems, headache, numbness, paresthesia, pre-existing deficit, seizure, tingling, tremors, weakness, other Hematologic/Lymphatic: Reports: anemia Allergies: Coded Allergies: ACETAMINOPHEN (Verified Allergy, Unknown, 09/26/17) CODEINE (Verified Allergy, Unknown, 09/26/17) HYDROCODONE (Verified Allergy, Unknown, 09/26/17) MORPHINE (Verified Allergy, Unknown, 09/26/17) Uncoded Allergies: tartrazine (Allergy, Unknown, 09/26/17) Subjective Wbc downtrended from yesterday. No fever. Objective Last 24 Hour Vital Signs Date Time Temp Pulse Resp B/P (MAP) Pulse Ox O2 Delivery O2 Flow Rate FiO2 10/01/17 08:01 73 10/01/17 07:34 97.3 83 20 144/67 95 Nasal Cannula 97.3 10/01/17 06:45 61 18 99 Nasal Cannula 3.0 32 10/01/17 06:35 60 16 96 Nasal Cannula 3.0 32 10/01/17 06:35 Nasal Cannula 3.0 32 10/01/17 06:35 96 Nasal Cannula 3.0 32 10/01/17 04:05 20 98 Nasal Cannula 3.0 10/01/17 04:00 97.2 83 20 130/71 98 Room Air 97.2 10/01/17 04:00 77 10/01/17 01:00 89 20 97 Nasal Cannula 3.0 32 10/01/17 01:00 93 22 98 Nasal Cannula 3.0 32 10/01/17 00:05 20 98 Nasal Cannula 3.0 10/01/17 00:00 73 10/01/17 00:00 97.7 79 20 134/74 98 Nasal Cannula 97.7 09/30/17 20:05 20 96 Nasal Cannula 3.0 09/30/17 20:00 98.8 76 20 127/71 96 Nasal Cannula 98.8 09/30/17 19:14 91 21 98 Nasal Cannula 3.0 32 09/30/17 19:08 Nasal Cannula 3.0 32 09/30/17 19:08 88 18 97 Nasal Cannula 3.0 32 09/30/17 19:08 98 Nasal Cannula 3.0 32 09/30/17 16:00 70 09/30/17 16:00 98.1 97 16 137/77 82 Nasal Cannula 3.0 98.1 09/30/17 13:53 73 18 96 Nasal Cannula 3.0 32 09/30/17 13:43 70 20 95 Nasal Cannula 3.0 32 09/30/17 12:00 97.3 79 16 135/79 86 Nasal Cannula 3.0 97.3 09/30/17 11:45 74 Intake and Output 09/30/17 10/01/17 20:00 08:00 Intake Total 1137.5 ml 715.000 ml Output Total 250 ml 500 ml Balance 887.5 ml 215.000 ml Intake Oral 800 ml IV Total 337.5 ml 715.000 ml Output Urine Total 250 ml 500 ml Labs Test 09/29/17 07:12 09/29/17 13:55 09/29/17 16:00 09/29/17 23:00 White Blood Count 13.9 K/UL (4.8-10.8) 17.4 K/UL (4.8-10.8) Red Blood Count 3.64 M/UL (4.20-5.40) 3.86 M/UL (4.20-5.40) Hemoglobin 11.6 G/DL (12.0-16.0) 12.4 G/DL (12.0-16.0) Hematocrit 35.8 % (37.0-47.0) 38.3 % (37.0-47.0) Mean Corpuscular Volume 98 FL (80-99) 99 FL (80-99) Mean Corpuscular Hemoglobin 31.8 PG (27.0-31.0) 32.2 PG (27.0-31.0) Mean Corpuscular Hemoglobin Concent 32.3 G/DL (32.0-36.0) 32.4 G/DL (32.0-36.0) Red Cell Distribution Width 15.0 % (11.6-14.8) 15.3 % (11.6-14.8) Platelet Count 318 K/UL (150-450) 311 K/UL (150-450) Mean Platelet Volume 8.5 FL (6.5-10.1) 8.3 FL (6.5-10.1) Neutrophils (%) (Auto) % (45.0-75.0) % (45.0-75.0) Lymphocytes (%) (Auto) % (20.0-45.0) % (20.0-45.0) Monocytes (%) (Auto) % (1.0-10.0) % (1.0-10.0) Eosinophils (%) (Auto) % (0.0-3.0) % (0.0-3.0) Basophils (%) (Auto) % (0.0-2.0) % (0.0-2.0) Differential Total Cells Counted 100 100 Neutrophils % (Manual) 96 % (45-75) 95 % (45-75) Lymphocytes % (Manual) 4 % (20-45) 4 % (20-45) Monocytes % (Manual) 0 % (1-10) 1 % (1-10) Eosinophils % (Manual) 0 % (0-3) 0 % (0-3) Basophils % (Manual) 0 % (0-2) 0 % (0-2) Band Neutrophils 0 % (0-8) 0 % (0-8) Platelet Estimate Adequate Adequate Platelet Morphology Normal Normal Hypochromasia 1+ 1+ Anisocytosis 1+ 1+ Erythrocyte Sedimentation Rate 44 MM/HR (0-42) Prothrombin Time 10.0 SEC (9.30-11.50) Prothromb Time International Ratio 1.0 (0.9-1.1) Activated Partial Thromboplast Time 26 SEC (23-33) Sodium Level 142 MMOL/L (136-145) Potassium Level 5.3 MMOL/L (3.5-5.1) Chloride Level 108 MMOL/L (98-107) Carbon Dioxide Level 29 MMOL/L (21-32) Anion Gap 5 mmol/L (5-15) Blood Urea Nitrogen 28 mg/dL (7-18) Creatinine 1.4 MG/DL (0.55-1.30) Estimat Glomerular Filtration Rate mL/min (>60) Glucose Level 131 MG/DL (74-106) Uric Acid 6.1 MG/DL (2.6-7.2) Calcium Level 8.4 MG/DL (8.5-10.1) Phosphorus Level 3.7 MG/DL (2.5-4.9) Magnesium Level 2.4 MG/DL (1.8-2.4) Total Bilirubin 0.1 MG/DL (0.2-1.0) Aspartate Amino Transf (AST/SGOT) 22 U/L (15-37) Alanine Aminotransferase (ALT/SGPT) 18 U/L (12-78) Alkaline Phosphatase 54 U/L (46-116) Total Creatine Kinase 237 U/L (26-308) Total Protein 6.3 G/DL (6.4-8.2) Albumin 2.6 G/DL (3.4-5.0) Globulin 3.7 g/dL Albumin/Globulin Ratio 0.7 (1.0-2.7) Arterial Blood pH 7.360 (7.350-7.450) Arterial Blood Partial Pressure CO2 46.2 mmHg (35.0-45.0) Arterial Blood Partial Pressure O2 72.2 mmHg (75.0-100.0) Arterial Blood HCO3 26.0 mmol/L (22.0-26.0) Arterial Blood Oxygen Saturation 94.6 % (92.0-98.0) Arterial Blood Base Excess 0.4 Robbie Test Positive Urine Color Brown Urine Appearance Clear Urine pH 5 (4.5-8.0) Urine Specific Adams 1.020 (1.005-1.035) Urine Protein 1+ (NEGATIVE) Urine Glucose (UA) Negative (NEGATIVE) Urine Ketones Negative (NEGATIVE) Urine Occult Blood Negative (NEGATIVE) Urine Nitrite Negative (NEGATIVE) Urine Bilirubin Negative (NEGATIVE) Urine Urobilinogen Normal MG/DL (0.0-1.0) Urine Leukocyte Esterase 1+ (NEGATIVE) Urine RBC 0-2 /HPF (0 - 2) Urine WBC 2-4 /HPF (0 - 2) Urine Squamous Epithelial Cells Few /LPF (NONE/OCC) Urine Bacteria Few /HPF (NONE) Urine Yeast Moderate /HPF (NONE) Urine Eosinophils None seen Urine Random Sodium < 10 mmol/L (20-110) Urine Potassium Timed 78 mmol/L (12-62) Test 09/30/17 03:50 10/01/17 03:00 White Blood Count 14.4 K/UL (4.8-10.8) 10.9 K/UL (4.8-10.8) Red Blood Count 3.47 M/UL (4.20-5.40) 3.40 M/UL (4.20-5.40) Hemoglobin 11.2 G/DL (12.0-16.0) 11.0 G/DL (12.0-16.0) Hematocrit 34.4 % (37.0-47.0) 33.6 % (37.0-47.0) Mean Corpuscular Volume 99 FL (80-99) 99 FL (80-99) Mean Corpuscular Hemoglobin 32.4 PG (27.0-31.0) 32.4 PG (27.0-31.0) Mean Corpuscular Hemoglobin Concent 32.7 G/DL (32.0-36.0) 32.8 G/DL (32.0-36.0) Red Cell Distribution Width 15.2 % (11.6-14.8) 14.9 % (11.6-14.8) Platelet Count 321 K/UL (150-450) 293 K/UL (150-450) Mean Platelet Volume 8.3 FL (6.5-10.1) 7.3 FL (6.5-10.1) Neutrophils (%) (Auto) % (45.0-75.0) % (45.0-75.0) Lymphocytes (%) (Auto) % (20.0-45.0) % (20.0-45.0) Monocytes (%) (Auto) % (1.0-10.0) % (1.0-10.0) Eosinophils (%) (Auto) % (0.0-3.0) % (0.0-3.0) Basophils (%) (Auto) % (0.0-2.0) % (0.0-2.0) Differential Total Cells Counted 100 100 Neutrophils % (Manual) 93 % (45-75) 90 % (45-75) Lymphocytes % (Manual) 6 % (20-45) 3 % (20-45) Monocytes % (Manual) 1 % (1-10) 7 % (1-10) Eosinophils % (Manual) 0 % (0-3) 0 % (0-3) Basophils % (Manual) 0 % (0-2) 0 % (0-2) Band Neutrophils 0 % (0-8) 0 % (0-8) Platelet Estimate Adequate Adequate Platelet Morphology Normal Normal Anisocytosis 1+ Sodium Level 142 MMOL/L (136-145) 142 MMOL/L (136-145) Potassium Level 4.2 MMOL/L (3.5-5.1) 4.5 MMOL/L (3.5-5.1) Chloride Level 108 MMOL/L (98-107) 109 MMOL/L (98-107) Carbon Dioxide Level 26 MMOL/L (21-32) 27 MMOL/L (21-32) Anion Gap 8 mmol/L (5-15) 6 mmol/L (5-15) Blood Urea Nitrogen 30 mg/dL (7-18) 27 mg/dL (7-18) Creatinine 1.2 MG/DL (0.55-1.30) 1.1 MG/DL (0.55-1.30) Estimat Glomerular Filtration Rate mL/min (>60) mL/min (>60) Glucose Level 119 MG/DL (74-106) 127 MG/DL (74-106) Calcium Level 8.6 MG/DL (8.5-10.1) 8.2 MG/DL (8.5-10.1) Total Bilirubin 0.2 MG/DL (0.2-1.0) 0.2 MG/DL (0.2-1.0) Aspartate Amino Transf (AST/SGOT) 19 U/L (15-37) 20 U/L (15-37) Alanine Aminotransferase (ALT/SGPT) 20 U/L (12-78) 21 U/L (12-78) Alkaline Phosphatase 53 U/L (46-116) 50 U/L (46-116) Pro-B-Type Natriuretic Peptide 2902 pg/mL (0-125) Total Protein 6.2 G/DL (6.4-8.2) 5.4 G/DL (6.4-8.2) Albumin 2.6 G/DL (3.4-5.0) 2.5 G/DL (3.4-5.0) Globulin 3.6 g/dL 2.9 g/dL Albumin/Globulin Ratio 0.7 (1.0-2.7) 0.9 (1.0-2.7) Hypochromasia 1+ Phosphorus Level 3.2 MG/DL (2.5-4.9) Magnesium Level 2.3 MG/DL (1.8-2.4) Random Vancomycin Level 7.4 ug/mL Laboratory Tests 10/01/17 03:00: White Blood Count 10.9H, Red Blood Count 3.40L, Hemoglobin 11.0L, Hematocrit 33.6L, Mean Corpuscular Volume 99, Mean Corpuscular Hemoglobin 32.4H, Mean Corpuscular Hemoglobin Concent 32.8, Red Cell Distribution Width 14.9H, Platelet Count 293, Mean Platelet Volume 7.3, Neutrophils (%) (Auto) , Lymphocytes (%) (Auto) , Monocytes (%) (Auto) , Eosinophils (%) (Auto) , Basophils (%) (Auto) , Differential Total Cells Counted 100, Neutrophils % ( Manual) 90H, Lymphocytes % (Manual) 3L, Monocytes % (Manual) 7, Eosinophils % ( Manual) 0, Basophils % (Manual) 0, Band Neutrophils 0, Platelet Estimate Adequate, Platelet Morphology Normal, Hypochromasia 1+, Sodium Level 142, Potassium Level 4.5, Chloride Level 109H, Carbon Dioxide Level 27, Anion Gap 6, Blood Urea Nitrogen 27H, Creatinine 1.1, Estimat Glomerular Filtration Rate , Glucose Level 127H, Calcium Level 8.2L, Phosphorus Level 3.2, Magnesium Level 2.3, Total Bilirubin 0.2, Aspartate Amino Transf (AST/SGOT) 20, Alanine Aminotransferase (ALT/SGPT) 21, Alkaline Phosphatase 50, Total Protein 5.4L, Albumin 2.5L, Globulin 2.9, Albumin/Globulin Ratio 0.9L, Random Vancomycin Level 7.4 Height (Feet): 5 Height (Inches): 2.00 Weight (Pounds): 133 General Appearance: confused Respiratory/Chest: decreased breath sounds Abdomen: non tender, soft Edema: trace edema Skin: warm/dry Oleg Brown Oct 01, 2017 11:45
[2017-10-01 12:00] VITALS: BP 137/104
--- NOTE | 2017-10-01 14:55 | General Progress Note ---
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 SNOMED: 09752871 (2) Dyspnea ICD Codes: R06.00 - Dyspnea, unspecified SNOMED: 012165128 (3) Encephalitis ICD Codes: G04.90 - Encephalitis and encephalomyelitis, unspecified Recommendations po diet elevate HOB EGD with Botox in future Subjective Allergies: Coded Allergies: ACETAMINOPHEN (Verified Allergy, Unknown, 09/26/17) CODEINE (Verified Allergy, Unknown, 09/26/17) HYDROCODONE (Verified Allergy, Unknown, 09/26/17) MORPHINE (Verified Allergy, Unknown, 09/26/17) Uncoded Allergies: tartrazine (Allergy, Unknown, 09/26/17) Subjective Thin, confused ate well this am no new events Objective Last 24 Hour Vital Signs Date Time Temp Pulse Resp B/P (MAP) Pulse Ox O2 Delivery O2 Flow Rate FiO2 10/01/17 12:31 66 20 99 Nasal Cannula 2.0 28 10/01/17 12:21 65 18 93 Nasal Cannula 2.0 28 10/01/17 12:00 98.4 69 20 137/104 95 Nasal Cannula 2.0 98.4 10/01/17 11:47 70 10/01/17 08:01 73 10/01/17 07:34 97.3 83 20 144/67 95 Nasal Cannula 97.3 10/01/17 06:45 61 18 99 Nasal Cannula 3.0 32 10/01/17 06:35 60 16 96 Nasal Cannula 3.0 32 10/01/17 06:35 Nasal Cannula 3.0 32 10/01/17 06:35 96 Nasal Cannula 3.0 32 10/01/17 04:05 20 98 Nasal Cannula 3.0 10/01/17 04:00 97.2 83 20 130/71 98 Room Air 97.2 10/01/17 04:00 77 10/01/17 01:00 89 20 97 Nasal Cannula 3.0 32 10/01/17 01:00 93 22 98 Nasal Cannula 3.0 32 10/01/17 00:05 20 98 Nasal Cannula 3.0 10/01/17 00:00 73 10/01/17 00:00 97.7 79 20 134/74 98 Nasal Cannula 97.7 09/30/17 20:05 20 96 Nasal Cannula 3.0 09/30/17 20:00 98.8 76 20 127/71 96 Nasal Cannula 98.8 09/30/17 19:14 91 21 98 Nasal Cannula 3.0 32 09/30/17 19:08 Nasal Cannula 3.0 32 09/30/17 19:08 88 18 97 Nasal Cannula 3.0 32 09/30/17 19:08 98 Nasal Cannula 3.0 32 09/30/17 16:00 70 09/30/17 16:00 98.1 97 16 137/77 82 Nasal Cannula 3.0 98.1 Intake and Output 09/30/17 10/01/17 19:00 07:00 Intake Total 1137.5 ml 715.000 ml Output Total 250 ml 500 ml Balance 887.5 ml 215.000 ml Intake Oral 800 ml IV Total 337.5 ml 715.000 ml Output Urine Total 250 ml 500 ml Laboratory Tests 10/01/17 03:00: White Blood Count 10.9H, Red Blood Count 3.40L, Hemoglobin 11.0L, Hematocrit 33.6L, Mean Corpuscular Volume 99, Mean Corpuscular Hemoglobin 32.4H, Mean Corpuscular Hemoglobin Concent 32.8, Red Cell Distribution Width 14.9H, Platelet Count 293, Mean Platelet Volume 7.3, Neutrophils (%) (Auto) , Lymphocytes (%) (Auto) , Monocytes (%) (Auto) , Eosinophils (%) (Auto) , Basophils (%) (Auto) , Differential Total Cells Counted 100, Neutrophils % ( Manual) 90H, Lymphocytes % (Manual) 3L, Monocytes % (Manual) 7, Eosinophils % ( Manual) 0, Basophils % (Manual) 0, Band Neutrophils 0, Platelet Estimate Adequate, Platelet Morphology Normal, Hypochromasia 1+, Sodium Level 142, Potassium Level 4.5, Chloride Level 109H, Carbon Dioxide Level 27, Anion Gap 6, Blood Urea Nitrogen 27H, Creatinine 1.1, Estimat Glomerular Filtration Rate , Glucose Level 127H, Calcium Level 8.2L, Phosphorus Level 3.2, Magnesium Level 2.3, Total Bilirubin 0.2, Aspartate Amino Transf (AST/SGOT) 20, Alanine Aminotransferase (ALT/SGPT) 21, Alkaline Phosphatase 50, Total Protein 5.4L, Albumin 2.5L, Globulin 2.9, Albumin/Globulin Ratio 0.9L, Random Vancomycin Level 7.4 Height (Feet): 5 Height (Inches): 2.00 Weight (Pounds): 133 Objective Thin elderly WW NCAT Supple CTA RRR Abd soft ND NT no edema RITCHIE PINO Oct 01, 2017 14:55
[2017-10-01 16:00] VITALS: BP 151/72
--- NOTE | 2017-10-01 16:28 | Cardiology Report ---
APPROVED REPORT EKG Measurement Heart [id number] Sinus tachycardia with occasional and premature atrial complexes with aberrant conduction Low voltage QRS Abnormal ECG
[2017-10-01 20:00] VITALS: BP 150/85
[2017-10-01] MEDS ORDERED: Nitroglycerin Subl 0.4mg tab SL PRN (20:30)
[2017-10-01] MEDS ORDERED: Miralax 17gm pkt ORAL SCH ×2 (21:00)
[2017-10-01] MEDS ORDERED: LORazepam Inj 2mg/ml 1ml IV PRN (22:15)
[2017-10-02] MEDS ORDERED: Albuterol/Ipratropium 3ml neb HHN SCH (01:00)
[2017-10-02 04:00] VITALS: BP 147/87
[2017-10-02 07:49] LABS: BASOPHILS % (AUTO) 0.6 % (0.0-2.0); EOSINOPHILS % (AUTO) 0.1 % (0.0-3.0); HEMATOCRIT 36.3 % (37.0-47.0); HEMOGLOBIN 11.9 G/DL (12.0-16.0); LYMPHOCYTES % (AUTO) 11.9 % (20.0-45.0); MEAN CORPUSCULAR VOLUME 98 FL (80-99); MONOCYTES % (AUTO) 6.1 % (1.0-10.0); NEUTROPHILS % (AUTO) 81.3 % (45.0-75.0); PLATELET COUNT 300 K/UL (150-450); RED CELL DISTRIBUTION WIDTH 14.6 % (11.6-14.8); WHITE BLOOD COUNT 11.8 K/UL (4.8-10.8)
[2017-10-02 07:52] LABS: ALANINE AMINOTRANSFERASE 22 U/L (12-78); ALBUMIN 2.3 G/DL (3.4-5.0); ALBUMIN/GLOBULIN RATIO 0.7 (1.0-2.7); ALKALINE PHOSPHATASE 49 U/L (46-116); ANION GAP 5 mmol/L (5-15); ASPARTATE AMINO TRANSFERASE 21 U/L (15-37); BILIRUBIN,TOTAL 0.4 MG/DL (0.2-1.0); BLOOD UREA NITROGEN 21 mg/dL (7-18); CALCIUM 8.3 MG/DL (8.5-10.1); CARBON DIOXIDE 30 MMOL/L (21-32); CHLORIDE 108 MMOL/L (98-107); CREATININE 1.2 MG/DL (0.55-1.30); POTASSIUM 3.3 MMOL/L (3.5-5.1); SODIUM 142 MMOL/L (136-145)
[2017-10-02 08:00] VITALS: BP 140/84
[2017-10-02] MEDS: Docusate 100mg/10ml Liq ORAL SCH ×2 (10:10→18:35)
[2017-10-02] MEDS: Enoxaparin 30mg Inj SUBQ SCH (10:11)
--- NOTE | 2017-10-02 10:29 | General Progress Note ---
Assessment/Plan Assessment/Plan #. Leukocytosis, likely secondary to infection. --> Ongoing antibiotics. --> Downtrending and improving. #. Chronic obstructive pulmonary disease exacerbation. --> To be seen by Pulmonary team. We started her on Keflex. --> Closely monitor. Pulmonary treatments have been started. #. Pneumonia history, status post treatment in the past with antibiotics. --> I have consulted ID Service as well. Wbc count downtrending. #. Tremor, shaking, unsure if this was a seizure episode and I have consulted the patient with Neurology, Dr. Mendes. #. Dementia. Closely monitor. Neurology Service to see if the patient needs to start any medications. --> CT scan of the head did not show any acute intracranial pathology. #. Left pleural effusion, to be seen again by Dr. Gandhi. Subjective Date patient seen: Oct 01, 2017 Constitutional: Denies: no symptoms, chills, diaphoresis, fever, malaise, weakness, other HEENT: Denies: no symptoms, eye pain, blurred vision, tearing, double vision, ear pain, ear discharge, nose pain, nose congestion, throat pain, throat swelling, mouth pain, mouth swelling, other Cardiovascular: Denies: no symptoms, chest pain, edema, irregular heart rate, lightheadedness, palpitations, syncope, other Respiratory: Denies: no symptoms, cough, orthopnea, shortness of breath, SOB with excertion, SOB at rest, sputum, stridor, wheezing, other Gastrointestinal/Abdominal: Denies: no symptoms, abdomen distended, abdominal pain, black stools, tarry stools, blood in stool, constipated, diarrhea, difficulty swallowing, nausea, poor appetite, poor fluid intake, rectal bleeding , vomiting, other Genitourinary: Denies: no symptoms, burning, discharge, frequency, flank pain, hematuria, incontinence, pain, urgency, other Neurologic/Psychiatric: Denies: no symptoms, anxiety, depressed, emotional problems, headache, numbness, paresthesia, pre-existing deficit, seizure, tingling, tremors, weakness, other Hematologic/Lymphatic: Reports: anemia Allergies: Coded Allergies: ACETAMINOPHEN (Verified Allergy, Unknown, 09/26/17) CODEINE (Verified Allergy, Unknown, 09/26/17) HYDROCODONE (Verified Allergy, Unknown, 09/26/17) MORPHINE (Verified Allergy, Unknown, 09/26/17) Uncoded Allergies: tartrazine (Allergy, Unknown, 09/26/17) Subjective NAD. No fever or chills. Confused. Objective Last 24 Hour Vital Signs Date Time Temp Pulse Resp B/P (MAP) Pulse Ox O2 Delivery O2 Flow Rate FiO2 10/02/17 08:00 95.4 99 21 140/84 Nasal Cannula 2.0 95.4 10/02/17 07:23 97 Nasal Cannula 3.0 32 10/02/17 07:23 Nasal Cannula 3.0 32 10/02/17 04:00 97.1 67 19 147/87 97 Nasal Cannula 2.0 97.1 10/02/17 01:36 Nasal Cannula 10/02/17 01:36 Nasal Cannula 28 10/01/17 20:00 66 10/01/17 20:00 97.2 66 20 150/85 96 Nasal Cannula 3.0 97.2 10/01/17 19:51 65 20 99 Nasal Cannula 2.0 28 10/01/17 19:39 Nasal Cannula 3.0 32 10/01/17 19:39 68 18 98 Nasal Cannula 2.0 28 10/01/17 19:38 98 Nasal Cannula 3.0 32 10/01/17 16:00 98.0 80 20 151/72 98 Nasal Cannula 3.0 98.0 10/01/17 15:36 71 10/01/17 12:31 66 20 99 Nasal Cannula 2.0 28 10/01/17 12:21 65 18 93 Nasal Cannula 2.0 28 10/01/17 12:00 98.4 69 20 137/104 95 Nasal Cannula 2.0 98.4 10/01/17 11:47 70 Intake and Output 10/01/17 10/02/17 19:00 07:00 Intake Total 780 ml 71.5 ml Balance 780 ml 71.5 ml Intake Oral 480 ml IV Total 300 ml 71.5 ml Laboratory Tests 10/02/17 06:10: White Blood Count 11.8H, Red Blood Count 3.70L, Hemoglobin 11.9L, Hematocrit 36.3L, Mean Corpuscular Volume 98, Mean Corpuscular Hemoglobin 32.1H, Mean Corpuscular Hemoglobin Concent 32.7, Red Cell Distribution Width 14.6, Platelet Count 300, Mean Platelet Volume 8.2, Neutrophils (%) (Auto) 81.3H, Lymphocytes ( %) (Auto) 11.9L, Monocytes (%) (Auto) 6.1, Eosinophils (%) (Auto) 0.1, Basophils (%) (Auto) 0.6, Sodium Level 142, Potassium Level 3.3L, Chloride Level 108H, Carbon Dioxide Level 30, Anion Gap 5, Blood Urea Nitrogen 21H, Creatinine 1.2, Estimat Glomerular Filtration Rate , Glucose Level 76, Calcium Level 8.3L, Total Bilirubin 0.4, Aspartate Amino Transf (AST/SGOT) 21, Alanine Aminotransferase (ALT/SGPT) 22, Alkaline Phosphatase 49, Pro-B-Type Natriuretic Peptide 2474H, Total Protein 5.4L, Albumin 2.3L, Globulin 3.1, Albumin/Globulin Ratio 0.7L Height (Feet): 5 Height (Inches): 2.00 Weight (Pounds): 133 General Appearance: confused Respiratory/Chest: decreased breath sounds Abdomen: non tender, soft Oleg Brown Oct 02, 2017 10:29
[2017-10-02 12:00] VITALS: BP 155/95
--- NOTE | 2017-10-02 12:30 | GI Progress Note ---
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 Ledesma. 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.90 - Encephalitis and encephalomyelitis, unspecified Recommendations po diet per ST elevate HOB EGD with Botox in future had extensive d/w son regarding plan of care PT evaluation fu pulmonary recs okay for DC per GI standpoint Subjective Subjective limited Objective Last 24 Hour Vital Signs Date Time Temp Pulse Resp B/P (MAP) Pulse Ox O2 Delivery O2 Flow Rate FiO2 10/02/17 12:00 95.7 71 18 155/95 100 Nasal Cannula 2.0 95.7 10/02/17 08:00 95.4 99 21 140/84 Nasal Cannula 2.0 95.4 10/02/17 07:23 97 Nasal Cannula 3.0 32 10/02/17 07:23 Nasal Cannula 3.0 32 10/02/17 04:00 97.1 67 19 147/87 97 Nasal Cannula 2.0 97.1 10/02/17 01:36 Nasal Cannula 10/02/17 01:36 Nasal Cannula 28 10/01/17 20:00 66 10/01/17 20:00 97.2 66 20 150/85 96 Nasal Cannula 3.0 97.2 10/01/17 19:51 65 20 99 Nasal Cannula 2.0 28 10/01/17 19:39 Nasal Cannula 3.0 32 10/01/17 19:39 68 18 98 Nasal Cannula 2.0 28 10/01/17 19:38 98 Nasal Cannula 3.0 32 10/01/17 16:00 98.0 80 20 151/72 98 Nasal Cannula 3.0 98.0 10/01/17 15:36 71 10/01/17 12:31 66 20 99 Nasal Cannula 2.0 28 Intake and Output 10/01/17 10/02/17 19:00 07:00 Intake Total 780 ml 71.5 ml Balance 780 ml 71.5 ml Intake Oral 480 ml IV Total 300 ml 71.5 ml Laboratory Tests Test 10/02/17 06:10 White Blood Count 11.8 K/UL (4.8-10.8) H Red Blood Count 3.70 M/UL (4.20-5.40) L Hemoglobin 11.9 G/DL (12.0-16.0) L Hematocrit 36.3 % (37.0-47.0) L Mean Corpuscular Volume 98 FL (80-99) Mean Corpuscular Hemoglobin 32.1 PG (27.0-31.0) H Mean Corpuscular Hemoglobin Concent 32.7 G/DL (32.0-36.0) Red Cell Distribution Width 14.6 % (11.6-14.8) Platelet Count 300 K/UL (150-450) Mean Platelet Volume 8.2 FL (6.5-10.1) Neutrophils (%) (Auto) 81.3 % (45.0-75.0) H Lymphocytes (%) (Auto) 11.9 % (20.0-45.0) L Monocytes (%) (Auto) 6.1 % (1.0-10.0) Eosinophils (%) (Auto) 0.1 % (0.0-3.0) Basophils (%) (Auto) 0.6 % (0.0-2.0) Sodium Level 142 MMOL/L (136-145) Potassium Level 3.3 MMOL/L (3.5-5.1) L Chloride Level 108 MMOL/L (98-107) H Carbon Dioxide Level 30 MMOL/L (21-32) Anion Gap 5 mmol/L (5-15) Blood Urea Nitrogen 21 mg/dL (7-18) H Creatinine 1.2 MG/DL (0.55-1.30) Estimat Glomerular Filtration Rate mL/min (>60) Glucose Level 76 MG/DL (74-106) Calcium Level 8.3 MG/DL (8.5-10.1) L Total Bilirubin 0.4 MG/DL (0.2-1.0) Aspartate Amino Transf (AST/SGOT) 21 U/L (15-37) Alanine Aminotransferase (ALT/SGPT) 22 U/L (12-78) Alkaline Phosphatase 49 U/L (46-116) Pro-B-Type Natriuretic Peptide 2474 pg/mL (0-125) H Total Protein 5.4 G/DL (6.4-8.2) L Albumin 2.3 G/DL (3.4-5.0) L Globulin 3.1 g/dL Albumin/Globulin Ratio 0.7 (1.0-2.7) L Height (Feet): 5 Height (Inches): 2.00 Weight (Pounds): 133 General Appearance: WD/WN, no apparent distress, alert Cardiovascular: normal rate Respiratory/Chest: normal breath sounds, no respiratory distress Abdominal Exam: normal bowel sounds, non tender, soft Extremities: non-tender Mary Anne Williamson N.P. Oct 02, 2017 12:30
--- NOTE | 2017-10-02 12:34 | Diagnostic Imaging Report ---
Indication: Dyspnea Technique: One view of the chest Comparison: 09/30/2017 Findings: Dilated esophagus is again demonstrated. Left sided pleural effusion and basilar atelectasis and consolidation persists. There is some right basilar atelectasis and possible consolidation as well. The heart is enlarged. Surgical clips project over the right lung apex. Impression: Increasing right basilar atelectasis and possible consolidation. Stable left basilar pleural and parenchymal disease, over 2 days
[2017-10-02] MEDS ORDERED: LORazepam Inj 2mg/ml 1ml IV PRN (13:00)
--- NOTE | 2017-10-02 14:10 | Infectious Diseases Prog Note ---
Assessment/Plan Assessment/Plan ASSESSMENT: The patient is an 87-year-old female with, Leukocytosis, ( on steroids ) improved Left parotitis improving Facial CT suggestive of left parotitis ?Developing PNA vs atelectasis -CXR 10/02: Increasing right basilar atelectasis and possible consolidation.Stable left basilar pleural and parenchymal disease, over [address] of the chest, no evidence of PE or infiltrate Afebrile. Rapid influenza A/B negative. CRP 1.8 CHF 09/29 SP EGD : Achalasia of esophagus ANDREI improved Dementia. History of pulmonary emboli History of back pain Depression PLAN: Cont patient on IV vancomycin and Levaquin d# 6 / Monitor CBC. Monitor BMP. Monitor chest x-ray. Monitor cultures (blood) sp cx Subjective Allergies: Coded Allergies: ACETAMINOPHEN (Verified Allergy, Unknown, 09/26/17) CODEINE (Verified Allergy, Unknown, 09/26/17) HYDROCODONE (Verified Allergy, Unknown, 09/26/17) MORPHINE (Verified Allergy, Unknown, 09/26/17) Uncoded Allergies: tartrazine (Allergy, Unknown, 09/26/17) Subjective afebrile leukocytosis overall improved cx NTD Objective Vital Signs Last 24 Hour Vital Signs Date Time Temp Pulse Resp B/P (MAP) Pulse Ox O2 Delivery O2 Flow Rate FiO2 10/02/17 12:00 95.7 71 18 155/95 100 Nasal Cannula 2.0 95.7 10/02/17 08:00 95.4 99 21 140/84 Nasal Cannula 2.0 95.4 10/02/17 07:23 97 Nasal Cannula 3.0 32 10/02/17 07:23 Nasal Cannula 3.0 32 10/02/17 04:00 97.1 67 19 147/87 97 Nasal Cannula 2.0 97.1 10/02/17 01:36 Nasal Cannula 10/02/17 01:36 Nasal Cannula 28 10/01/17 20:00 66 10/01/17 20:00 97.2 66 20 150/85 96 Nasal Cannula 3.0 97.2 10/01/17 19:51 65 20 99 Nasal Cannula 2.0 28 10/01/17 19:39 Nasal Cannula 3.0 32 10/01/17 19:39 68 18 98 Nasal Cannula 2.0 28 10/01/17 19:38 98 Nasal Cannula 3.0 32 10/01/17 16:00 98.0 80 20 151/72 98 Nasal Cannula 3.0 98.0 10/01/17 15:36 71 Height (Feet): 5 Height (Inches): 2.00 Weight (Pounds): 133 Objective General Appearance: WD/WN Lines, tubes and drains: peripheral HEENT: normocephalic, atraumatic Neck: non-tender, normal alignment Respiratory/Chest: chest wall non-tender, lungs rhonchi Cardiovascular/Chest: normal peripheral pulses, normal rate Abdomen: normal bowel sounds, non tender Genitourinary/Rectal: normal genital exam, normal rectal exam Extremities: normal range of motion, non-tender Skin Exam: normal pigmentation 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 Microbiology Date/Time Source Procedure Growth Status 09/29/17 23:00 Urine,Clean Catch Urine Culture - Preliminary NO GROWTH AFTER 24 HOURS Resulted Laboratory Tests Test 10/02/17 06:10 White Blood Count 11.8 K/UL (4.8-10.8) H Red Blood Count 3.70 M/UL (4.20-5.40) L Hemoglobin 11.9 G/DL (12.0-16.0) L Hematocrit 36.3 % (37.0-47.0) L Mean Corpuscular Volume 98 FL (80-99) Mean Corpuscular Hemoglobin 32.1 PG (27.0-31.0) H Mean Corpuscular Hemoglobin Concent 32.7 G/DL (32.0-36.0) Red Cell Distribution Width 14.6 % (11.6-14.8) Platelet Count 300 K/UL (150-450) Mean Platelet Volume 8.2 FL (6.5-10.1) Neutrophils (%) (Auto) 81.3 % (45.0-75.0) H Lymphocytes (%) (Auto) 11.9 % (20.0-45.0) L Monocytes (%) (Auto) 6.1 % (1.0-10.0) Eosinophils (%) (Auto) 0.1 % (0.0-3.0) Basophils (%) (Auto) 0.6 % (0.0-2.0) Sodium Level 142 MMOL/L (136-145) Potassium Level 3.3 MMOL/L (3.5-5.1) L Chloride Level 108 MMOL/L (98-107) H Carbon Dioxide Level 30 MMOL/L (21-32) Anion Gap 5 mmol/L (5-15) Blood Urea Nitrogen 21 mg/dL (7-18) H Creatinine 1.2 MG/DL (0.55-1.30) Estimat Glomerular Filtration Rate mL/min (>60) Glucose Level 76 MG/DL (74-106) Calcium Level 8.3 MG/DL (8.5-10.1) L Total Bilirubin 0.4 MG/DL (0.2-1.0) Aspartate Amino Transf (AST/SGOT) 21 U/L (15-37) Alanine Aminotransferase (ALT/SGPT) 22 U/L (12-78) Alkaline Phosphatase 49 U/L (46-116) Pro-B-Type Natriuretic Peptide 2474 pg/mL (0-125) H Total Protein 5.4 G/DL (6.4-8.2) L Albumin 2.3 G/DL (3.4-5.0) L Globulin 3.1 g/dL Albumin/Globulin Ratio 0.7 (1.0-2.7) L Current Medications Medications (Trade) Dose Ordered Sig/Rambo Route PRN Reason Start Time Stop Time Status Last Admin Dose Admin Dextrose (Dextrose 50%) STAT PRN IV Hypoglycemia 10/02/17 14:30 10/28/17 14:29 Docusate Sodium (Colace) 100 mg BID ORAL 10/02/17 09:00 10/31/17 08:59 10/02/17 10:10 Enoxaparin Sodium (Lovenox) 30 mg Q24H SUBQ 10/02/17 09:00 10/27/17 08:59 10/02/17 10:11 Famotidine (Pepcid) 20 mg BID ORAL 10/02/17 09:00 10/27/17 08:59 10/02/17 10:10 Levofloxacin 50 ml @ 50 mls/hr Q24H IVPB 10/01/17 23:00 10/03/17 22:59 10/01/17 22:24 Lorazepam (Ativan 2mg/ml 1ml) 1 mg Q4H PRN IV For Anxiety 10/02/17 13:00 10/09/17 12:59 Nitroglycerin (Ntg) 0.4 mg Q5M PRN SL Prn Chest Pain 10/01/17 20:30 10/27/17 04:44 Polyethylene Glycol (Miralax) 17 gm BEDTIME ORAL 10/02/17 21:00 11/01/17 20:59 Sodium Chloride 1,000 ml @ 30 mls/hr Q24H IV 10/01/17 21:00 10/29/17 20:59 10/01/17 20:37 Vancomycin HCl (Vanco rx to dose) 1 ea DAILY PRN MISC Per rx protocol 10/02/17 09:00 10/27/17 18:59 Vancomycin HCl 1 gm/Dextrose 275 ml @ 183.708 mls/hr Q36H IVPB 10/02/17 15:00 10/04/17 14:59 Ngoc Chery M.D. Oct 02, 2017 14:10
[2017-10-02] MEDS ORDERED: Vancomycin 1 GM in D5W 275 ML IVPB SCH (15:00)
--- NOTE | 2017-10-02 15:40 | Diagnostic Imaging Report ---
Indication: Abnormal renal function Technique: Grayscale and duplex images of the kidneys, retroperitoneum, and bladder were obtained. Comparison: none Findings: Right kidney measures 8.4 cm in length. Left kidney measures 8.1 cm in length. Both kidneys demonstrate normal echogenicity. No hydronephrosis. Right kidney demonstrates a 2.4 cm upper pole cyst. Normal inferior vena cava. Bladder is empty, grossly unremarkable. Impression: Essentially unremarkable exam. Negative for hydronephrosis Incidental finding right upper pole renal cyst.
[2017-10-02 16:00] VITALS: BP 145/89
--- NOTE | 2017-10-02 16:44 | Physician Query ---
--------- THIS DOCUMENT IS A PERMANENT PART OF THE MEDICAL RECORD --------- PLEASE COMPLETE DOCUMENT BEFORE SIGNING Dear MARIN Salinas Date: 10/02/17 [employer] Name: Ivonne Katz [employer] Phone No.: [phone] Exercise your independent professional judgment when responding to the query. Questions asked do not imply a particular answer is desired or expected. We greatly appreciate your clarification on this issue. CLINICAL DOCUMENTATION STATES: Pulmonology Consultation Note: Dr. Multani (09/27/17) "Pneumonia." Pneumonia consistently documented in all subsequent Pulmonology Notes. CLINICAL FINDINGS SHOW: DL=244, 112, 108 RR=33, 33, 25 Chest X-Ray: (10/02/17) Impression: Increasing right basilar atelectasis and possible consolidation. IV ABx=Vancomycin, Levofloxacin, IM=Influenza Virus Vaccine, Pneumococcal Polyvalent Vaccine Please clarify, if Pneumonia: [] Ruled in or [] Ruled out Condition Present on Admission: [] Yes [] No []Clinically Undeterminable Please also document in your Progress Notes and/or Discharge Summary and indicate if the condition was present on admission. Dr. MARIN SNYDER Date/Time MTDD
--- NOTE | 2017-10-02 18:02 | Pulmonology Progress Note ---
Assessment/Plan Problems: (1) Pneumonia (2) Parotiditis (3) Dementia Assessment/Plan getting better, smiling might go back to med/surg check cxr, LLL infilotrate dc steroids respiratory treatment check sputum iv abx check cutlrues chest pt titrate fio2 to sat of 92% checked new cxr, d/w pts son and dr floyd extensively Subjective ROS Limited/Unobtainable: No Allergies: Coded Allergies: ACETAMINOPHEN (Verified Allergy, Unknown, 09/26/17) CODEINE (Verified Allergy, Unknown, 09/26/17) HYDROCODONE (Verified Allergy, Unknown, 09/26/17) MORPHINE (Verified Allergy, Unknown, 09/26/17) Uncoded Allergies: tartrazine (Allergy, Unknown, 09/26/17) Objective Last 24 Hour Vital Signs Date Time Temp Pulse Resp B/P (MAP) Pulse Ox O2 Delivery O2 Flow Rate FiO2 10/02/17 16:00 98.0 70 20 145/89 97 Nasal Cannula 2.0 98.0 10/02/17 12:00 95.7 71 18 155/95 100 Nasal Cannula 2.0 95.7 10/02/17 08:00 95.4 99 21 140/84 Nasal Cannula 2.0 95.4 10/02/17 07:23 97 Nasal Cannula 3.0 32 10/02/17 07:23 Nasal Cannula 3.0 32 10/02/17 04:00 97.1 67 19 147/87 97 Nasal Cannula 2.0 97.1 10/02/17 01:36 Nasal Cannula 10/02/17 01:36 Nasal Cannula 28 10/01/17 20:00 66 10/01/17 20:00 97.2 66 20 150/85 96 Nasal Cannula 3.0 97.2 10/01/17 19:51 65 20 99 Nasal Cannula 2.0 28 10/01/17 19:39 Nasal Cannula 3.0 32 10/01/17 19:39 68 18 98 Nasal Cannula 2.0 28 10/01/17 19:38 98 Nasal Cannula 3.0 32 Intake and Output 10/01/17 10/02/17 19:00 07:00 Intake Total 780 ml 71.5 ml Balance 780 ml 71.5 ml Intake Oral 480 ml IV Total 300 ml 71.5 ml Objective General Appearance: WD/WN Lines, tubes and drains: peripheral HEENT: normocephalic, atraumatic Neck: non-tender, normal alignment Respiratory/Chest: chest wall non-tender, lungs rhonchi Cardiovascular/Chest: normal peripheral pulses, normal rate Abdomen: normal bowel sounds, non tender Genitourinary/Rectal: normal genital exam, normal rectal exam Extremities: normal range of motion, non-tender Skin Exam: normal pigmentation 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 Microbiology Date/Time Source Procedure Growth Status 09/29/17 23:00 Urine,Clean Catch Urine Culture - Preliminary NO GROWTH AFTER 24 HOURS Resulted Laboratory Tests 10/02/17 06:10: White Blood Count 11.8H, Red Blood Count 3.70L, Hemoglobin 11.9L, Hematocrit 36.3L, Mean Corpuscular Volume 98, Mean Corpuscular Hemoglobin 32.1H, Mean Corpuscular Hemoglobin Concent 32.7, Red Cell Distribution Width 14.6, Platelet Count 300, Mean Platelet Volume 8.2, Neutrophils (%) (Auto) 81.3H, Lymphocytes ( %) (Auto) 11.9L, Monocytes (%) (Auto) 6.1, Eosinophils (%) (Auto) 0.1, Basophils (%) (Auto) 0.6, Sodium Level 142, Potassium Level 3.3L, Chloride Level 108H, Carbon Dioxide Level 30, Anion Gap 5, Blood Urea Nitrogen 21H, Creatinine 1.2, Estimat Glomerular Filtration Rate , Glucose Level 76, Calcium Level 8.3L, Total Bilirubin 0.4, Aspartate Amino Transf (AST/SGOT) 21, Alanine Aminotransferase (ALT/SGPT) 22, Alkaline Phosphatase 49, Pro-B-Type Natriuretic Peptide 2474H, Total Protein 5.4L, Albumin 2.3L, Globulin 3.1, Albumin/Globulin Ratio 0.7L Current Medications Medications (Trade) Dose Ordered Sig/Rambo Route PRN Reason Start Time Stop Time Status Last Admin Dose Admin Dextrose (Dextrose 50%) STAT PRN IV Hypoglycemia 10/02/17 14:30 10/28/17 14:29 Docusate Sodium (Colace) 100 mg BID ORAL 10/02/17 09:00 10/31/17 08:59 10/02/17 10:10 Enoxaparin Sodium (Lovenox) 30 mg Q24H SUBQ 10/02/17 09:00 10/27/17 08:59 10/02/17 10:11 Famotidine (Pepcid) 20 mg BID ORAL 10/02/17 09:00 10/27/17 08:59 10/02/17 10:10 Levofloxacin 50 ml @ 50 mls/hr Q24H IVPB 10/01/17 23:00 10/03/17 22:59 10/01/17 22:24 Lorazepam (Ativan 2mg/ml 1ml) 1 mg Q4H PRN IV For Anxiety 10/02/17 13:00 10/09/17 12:59 Nitroglycerin (Ntg) 0.4 mg Q5M PRN SL Prn Chest Pain 10/01/17 20:30 10/27/17 04:44 Polyethylene Glycol (Miralax) 17 gm BEDTIME ORAL 10/02/17 21:00 11/01/17 20:59 Sodium Chloride 1,000 ml @ 30 mls/hr Q24H IV 10/01/17 21:00 10/29/17 20:59 10/01/17 20:37 Vancomycin HCl (Vanco rx to dose) 1 ea DAILY PRN MISC Per rx protocol 10/02/17 09:00 10/27/17 18:59 Vancomycin HCl 1 gm/Dextrose 275 ml @ 183.708 mls/hr Q36H IVPB 10/02/17 15:00 10/04/17 14:59 10/02/17 15:52 BHAVESH MARION 12, 2018 18:02
--- NOTE | 2017-10-02 19:54 | General Progress Note ---
Assessment/Plan Problem List: (1) Parotiditis ICD Codes: K11.20 - Sialoadenitis, unspecified SNOMED: 63968826 (2) Pneumonia ICD Codes: J18.9 - Pneumonia, unspecified organism SNOMED: 459835981 (3) Dementia ICD Codes: F03.90 - Unspecified dementia without behavioral disturbance SNOMED: 91126475 (4) Achalasia of esophagus ICD Codes: K22.0 - Achalasia of cardia SNOMED: 79885683 (5) Dyspnea ICD Codes: R06.00 - Dyspnea, unspecified SNOMED: 777143213 Status: progressing Assessment/Plan not hypoxic achlasia pna ? afebrile abx per id diet per gi Subjective ROS Limited/Unobtainable: Yes Allergies: Coded Allergies: ACETAMINOPHEN (Verified Allergy, Unknown, 09/26/17) CODEINE (Verified Allergy, Unknown, 09/26/17) HYDROCODONE (Verified Allergy, Unknown, 09/26/17) MORPHINE (Verified Allergy, Unknown, 09/26/17) Uncoded Allergies: tartrazine (Allergy, Unknown, 09/26/17) Objective Last 24 Hour Vital Signs Date Time Temp Pulse Resp B/P (MAP) Pulse Ox O2 Delivery O2 Flow Rate FiO2 10/02/17 16:00 98.0 70 20 145/89 97 Nasal Cannula 2.0 98.0 10/02/17 12:00 95.7 71 18 155/95 100 Nasal Cannula 2.0 95.7 10/02/17 08:00 95.4 99 21 140/84 Nasal Cannula 2.0 95.4 10/02/17 07:23 97 Nasal Cannula 3.0 32 10/02/17 07:23 Nasal Cannula 3.0 32 10/02/17 04:00 97.1 67 19 147/87 97 Nasal Cannula 2.0 97.1 10/02/17 01:36 Nasal Cannula 10/02/17 01:36 Nasal Cannula 28 10/01/17 20:00 66 10/01/17 20:00 97.2 66 20 150/85 96 Nasal Cannula 3.0 97.2 Intake and Output 10/01/17 10/02/17 19:00 07:00 Intake Total 780 ml 71.5 ml Balance 780 ml 71.5 ml Intake Oral 480 ml IV Total 300 ml 71.5 ml Laboratory Tests 10/02/17 06:10: White Blood Count 11.8H, Red Blood Count 3.70L, Hemoglobin 11.9L, Hematocrit 36.3L, Mean Corpuscular Volume 98, Mean Corpuscular Hemoglobin 32.1H, Mean Corpuscular Hemoglobin Concent 32.7, Red Cell Distribution Width 14.6, Platelet Count 300, Mean Platelet Volume 8.2, Neutrophils (%) (Auto) 81.3H, Lymphocytes ( %) (Auto) 11.9L, Monocytes (%) (Auto) 6.1, Eosinophils (%) (Auto) 0.1, Basophils (%) (Auto) 0.6, Sodium Level 142, Potassium Level 3.3L, Chloride Level 108H, Carbon Dioxide Level 30, Anion Gap 5, Blood Urea Nitrogen 21H, Creatinine 1.2, Estimat Glomerular Filtration Rate , Glucose Level 76, Calcium Level 8.3L, Total Bilirubin 0.4, Aspartate Amino Transf (AST/SGOT) 21, Alanine Aminotransferase (ALT/SGPT) 22, Alkaline Phosphatase 49, Pro-B-Type Natriuretic Peptide 2474H, Total Protein 5.4L, Albumin 2.3L, Globulin 3.1, Albumin/Globulin Ratio 0.7L Height (Feet): 5 Height (Inches): 2.00 Weight (Pounds): 133 Cardiovascular: normal rate Respiratory/Chest: lungs clear Abdomen: soft Cullen Briceno MD Oct 02, 2017 19:54
[2017-10-02 20:00] VITALS: BP 153/93
--- NOTE | 2017-10-02 20:51 | General Progress Note ---
Assessment/Plan Problem List: (1) mdd (2) mdd Assessment & Plan: mdd dementia with behavioral dist -zyprexa 2.5mg qhs/prn Status: unchanged Assessment/Plan mdd dementia with behavioral dist encephalopathy -seroquel 25 mg bid -ativan prn -dc sitter Subjective Date patient seen: Oct 02, 2017 Neurologic/Psychiatric: Reports: anxiety, depressed, emotional problems Allergies: Coded Allergies: ACETAMINOPHEN (Verified Allergy, Unknown, 09/26/17) CODEINE (Verified Allergy, Unknown, 09/26/17) HYDROCODONE (Verified Allergy, Unknown, 09/26/17) MORPHINE (Verified Allergy, Unknown, 09/26/17) Uncoded Allergies: tartrazine (Allergy, Unknown, 09/26/17) Objective Last 24 Hour Vital Signs Date Time Temp Pulse Resp B/P (MAP) Pulse Ox O2 Delivery O2 Flow Rate FiO2 10/02/17 16:00 98.0 70 20 145/89 97 Nasal Cannula 2.0 98.0 10/02/17 12:00 95.7 71 18 155/95 100 Nasal Cannula 2.0 95.7 10/02/17 08:00 95.4 99 21 140/84 Nasal Cannula 2.0 95.4 10/02/17 07:23 97 Nasal Cannula 3.0 32 10/02/17 07:23 Nasal Cannula 3.0 32 10/02/17 04:00 97.1 67 19 147/87 97 Nasal Cannula 2.0 97.1 10/02/17 01:36 Nasal Cannula 10/02/17 01:36 Nasal Cannula 28 Intake and Output 10/01/17 10/02/17 19:00 07:00 Intake Total 780 ml 71.5 ml Balance 780 ml 71.5 ml Intake Oral 480 ml IV Total 300 ml 71.5 ml Laboratory Tests 10/02/17 06:10: White Blood Count 11.8H, Red Blood Count 3.70L, Hemoglobin 11.9L, Hematocrit 36.3L, Mean Corpuscular Volume 98, Mean Corpuscular Hemoglobin 32.1H, Mean Corpuscular Hemoglobin Concent 32.7, Red Cell Distribution Width 14.6, Platelet Count 300, Mean Platelet Volume 8.2, Neutrophils (%) (Auto) 81.3H, Lymphocytes ( %) (Auto) 11.9L, Monocytes (%) (Auto) 6.1, Eosinophils (%) (Auto) 0.1, Basophils (%) (Auto) 0.6, Sodium Level 142, Potassium Level 3.3L, Chloride Level 108H, Carbon Dioxide Level 30, Anion Gap 5, Blood Urea Nitrogen 21H, Creatinine 1.2, Estimat Glomerular Filtration Rate , Glucose Level 76, Calcium Level 8.3L, Total Bilirubin 0.4, Aspartate Amino Transf (AST/SGOT) 21, Alanine Aminotransferase (ALT/SGPT) 22, Alkaline Phosphatase 49, Pro-B-Type Natriuretic Peptide 2474H, Total Protein 5.4L, Albumin 2.3L, Globulin 3.1, Albumin/Globulin Ratio 0.7L Height (Feet): 5 Height (Inches): 2.00 Weight (Pounds): 133 General Appearance: no apparent distress, alert, confused, agitated Shane Garcia M.D. Oct 02, 2017 20:51
--- NOTE | 2017-10-02 20:52 | Psych Consult Progress Note ---
Psych Consult Progress Note Consult 10/01/17 Vital Signs Last 24 Hour Vital Signs Date Time Temp Pulse Resp B/P (MAP) Pulse Ox O2 Delivery O2 Flow Rate FiO2 10/02/17 16:00 98.0 70 20 145/89 97 Nasal Cannula 2.0 98.0 10/02/17 12:00 95.7 71 18 155/95 100 Nasal Cannula 2.0 95.7 10/02/17 08:00 95.4 99 21 140/84 Nasal Cannula 2.0 95.4 10/02/17 07:23 97 Nasal Cannula 3.0 32 10/02/17 07:23 Nasal Cannula 3.0 32 10/02/17 04:00 97.1 67 19 147/87 97 Nasal Cannula 2.0 97.1 10/02/17 01:36 Nasal Cannula 10/02/17 01:36 Nasal Cannula 28 Labs Laboratory Tests Test 10/02/17 06:10 White Blood Count 11.8 K/UL (4.8-10.8) H Red Blood Count 3.70 M/UL (4.20-5.40) L Hemoglobin 11.9 G/DL (12.0-16.0) L Hematocrit 36.3 % (37.0-47.0) L Mean Corpuscular Volume 98 FL (80-99) Mean Corpuscular Hemoglobin 32.1 PG (27.0-31.0) H Mean Corpuscular Hemoglobin Concent 32.7 G/DL (32.0-36.0) Red Cell Distribution Width 14.6 % (11.6-14.8) Platelet Count 300 K/UL (150-450) Mean Platelet Volume 8.2 FL (6.5-10.1) Neutrophils (%) (Auto) 81.3 % (45.0-75.0) H Lymphocytes (%) (Auto) 11.9 % (20.0-45.0) L Monocytes (%) (Auto) 6.1 % (1.0-10.0) Eosinophils (%) (Auto) 0.1 % (0.0-3.0) Basophils (%) (Auto) 0.6 % (0.0-2.0) Sodium Level 142 MMOL/L (136-145) Potassium Level 3.3 MMOL/L (3.5-5.1) L Chloride Level 108 MMOL/L (98-107) H Carbon Dioxide Level 30 MMOL/L (21-32) Anion Gap 5 mmol/L (5-15) Blood Urea Nitrogen 21 mg/dL (7-18) H Creatinine 1.2 MG/DL (0.55-1.30) Estimat Glomerular Filtration Rate mL/min (>60) Glucose Level 76 MG/DL (74-106) Calcium Level 8.3 MG/DL (8.5-10.1) L Total Bilirubin 0.4 MG/DL (0.2-1.0) Aspartate Amino Transf (AST/SGOT) 21 U/L (15-37) Alanine Aminotransferase (ALT/SGPT) 22 U/L (12-78) Alkaline Phosphatase 49 U/L (46-116) Pro-B-Type Natriuretic Peptide 2474 pg/mL (0-125) H Total Protein 5.4 G/DL (6.4-8.2) L Albumin 2.3 G/DL (3.4-5.0) L Globulin 3.1 g/dL Albumin/Globulin Ratio 0.7 (1.0-2.7) L Medications Current Medications Medications (Trade) Dose Ordered Sig/Rambo Route PRN Reason Start Time Stop Time Status Last Admin Dose Admin Dextrose (Dextrose 50%) STAT PRN IV Hypoglycemia 10/02/17 14:30 10/28/17 14:29 Docusate Sodium (Colace) 100 mg BID ORAL 10/02/17 09:00 10/31/17 08:59 10/02/17 18:35 Enoxaparin Sodium (Lovenox) 30 mg Q24H SUBQ 10/02/17 09:00 10/27/17 08:59 10/02/17 10:11 Famotidine (Pepcid) 20 mg BID ORAL 10/02/17 09:00 10/27/17 08:59 10/02/17 18:35 Levofloxacin 50 ml @ 50 mls/hr Q24H IVPB 10/01/17 23:00 10/03/17 22:59 10/01/17 22:24 Lorazepam (Ativan 2mg/ml 1ml) 1 mg Q4H PRN IV For Anxiety 10/02/17 13:00 10/09/17 12:59 Nitroglycerin (Ntg) 0.4 mg Q5M PRN SL Prn Chest Pain 10/01/17 20:30 10/27/17 04:44 Polyethylene Glycol (Miralax) 17 gm BEDTIME ORAL 10/02/17 21:00 11/01/17 20:59 Sodium Chloride 1,000 ml @ 30 mls/hr Q24H IV 10/01/17 21:00 10/29/17 20:59 10/01/17 20:37 Vancomycin HCl (Vanco rx to dose) 1 ea DAILY PRN MISC Per rx protocol 10/02/17 09:00 10/27/17 18:59 Vancomycin HCl 1 gm/Dextrose 275 ml @ 183.708 mls/hr Q36H IVPB 10/02/17 15:00 10/04/17 14:59 10/02/17 15:52 Problems: (1) mdd Status: Acute Assessment & Plan: mdd dementia with behavioral dist encephalopathy -seroquel 25 mg bid -ativan Shane Jacobo M.D. Oct 02, 2017 20:52
[2017-10-02] MEDS: Miralax 17gm pkt ORAL SCH (22:18)
[2017-10-03] VITALS: BP 128/70
[2017-10-03 04:00] VITALS: BP 149/85
[2017-10-03 06:54] LABS: BASOPHILS % (AUTO) 0.6 % (0.0-2.0); EOSINOPHILS % (AUTO) 1.1 % (0.0-3.0); HEMATOCRIT 39.8 % (37.0-47.0); HEMOGLOBIN 12.9 G/DL (12.0-16.0); LYMPHOCYTES % (AUTO) 11.1 % (20.0-45.0); MEAN CORPUSCULAR VOLUME 98 FL (80-99); MONOCYTES % (AUTO) 7.3 % (1.0-10.0); PLATELET COUNT 304 K/UL (150-450); RED BLOOD COUNT 4.05 M/UL (4.20-5.40); RED CELL DISTRIBUTION WIDTH 15.1 % (11.6-14.8)
[2017-10-03 07:17] LABS: ANION GAP 6 mmol/L (5-15); BLOOD UREA NITROGEN 18 mg/dL (7-18); CALCIUM 8.4 MG/DL (8.5-10.1); CARBON DIOXIDE 32 MMOL/L (21-32); CHLORIDE 105 MMOL/L (98-107); CREATININE 1.2 MG/DL (0.55-1.30); POTASSIUM 3.6 MMOL/L (3.5-5.1); SODIUM 143 MMOL/L (136-145)
[2017-10-03 08:00] VITALS: BP 169/77
[2017-10-03] MEDS: Docusate 100mg/10ml Liq ORAL SCH ×2 (09:05→17:37)
[2017-10-03] MEDS: Enoxaparin 30mg Inj SUBQ SCH (09:06)
[2017-10-03 11:39] VITALS: BP 136/86
--- NOTE | 2017-10-03 11:57 | General Progress Note ---
Assessment/Plan Assessment/Plan #. Leukocytosis, likely secondary to infection. --> Ongoing antibiotics. --> Downtrending and improving. #. Chronic obstructive pulmonary disease exacerbation. --> To be seen by Pulmonary team. We started her on Keflex. --> Closely monitor. Pulmonary treatments have been started. #. Pneumonia history, status post treatment in the past with antibiotics. --> I have consulted ID Service as well. Wbc count downtrending. #. Tremor, shaking, unsure if this was a seizure episode and I have consulted the patient with Neurology, Dr. Mendes. No seizures today #. Dementia. Closely monitor. Neurology Service to see if the patient needs to start any medications. --> CT scan of the head did not show any acute intracranial pathology. #. Left pleural effusion, to be seen again by Dr. Gandhi. Subjective Date patient seen: Oct 02, 2017 Constitutional: Denies: no symptoms, chills, diaphoresis, fever, malaise, weakness, other HEENT: Denies: no symptoms, eye pain, blurred vision, tearing, double vision, ear pain, ear discharge, nose pain, nose congestion, throat pain, throat swelling, mouth pain, mouth swelling, other Cardiovascular: Denies: no symptoms, chest pain, edema, irregular heart rate, lightheadedness, palpitations, syncope, other Respiratory: Denies: no symptoms, cough, orthopnea, shortness of breath, SOB with excertion, SOB at rest, sputum, stridor, wheezing, other Gastrointestinal/Abdominal: Denies: no symptoms, abdomen distended, abdominal pain, black stools, tarry stools, blood in stool, constipated, diarrhea, difficulty swallowing, nausea, poor appetite, poor fluid intake, rectal bleeding , vomiting, other Genitourinary: Denies: no symptoms, burning, discharge, frequency, flank pain, hematuria, incontinence, pain, urgency, other Neurologic/Psychiatric: Denies: no symptoms, anxiety, depressed, emotional problems, headache, numbness, paresthesia, pre-existing deficit, seizure, tingling, tremors, weakness, other Hematologic/Lymphatic: Reports: anemia Allergies: Coded Allergies: ACETAMINOPHEN (Verified Allergy, Unknown, 09/26/17) CODEINE (Verified Allergy, Unknown, 09/26/17) HYDROCODONE (Verified Allergy, Unknown, 09/26/17) MORPHINE (Verified Allergy, Unknown, 09/26/17) Uncoded Allergies: tartrazine (Allergy, Unknown, 09/26/17) Subjective NAD. On abx. Wbc count improving Objective Last 24 Hour Vital Signs Date Time Temp Pulse Resp B/P (MAP) Pulse Ox O2 Delivery O2 Flow Rate FiO2 10/03/17 08:00 98.2 68 20 169/77 97 98.2 10/03/17 04:00 98.2 83 20 149/85 98 98.2 10/03/17 00:00 98.9 66 20 128/70 98 98.9 10/02/17 20:00 97.6 64 21 153/93 99 97.6 10/02/17 19:10 Nasal Cannula 3.0 32 10/02/17 19:10 98 Nasal Cannula 3.0 32 10/02/17 16:00 98.0 70 20 145/89 97 Nasal Cannula 2.0 98.0 10/02/17 12:00 95.7 71 18 155/95 100 Nasal Cannula 2.0 95.7 Intake and Output 10/02/17 10/03/17 19:00 07:00 Intake Total 865.000 ml Output Total 0 ml Balance 865.000 ml 0 ml IV Total 515.000 ml Other 350 ml Output Urine Total 0 ml # Voids 4 Laboratory Tests 10/03/17 05:50: White Blood Count 10.0, Red Blood Count 4.05L, Hemoglobin 12.9, Hematocrit 39.8 , Mean Corpuscular Volume 98, Mean Corpuscular Hemoglobin 31.9H, Mean Corpuscular Hemoglobin Concent 32.5, Red Cell Distribution Width 15.1H, Platelet Count 304, Mean Platelet Volume 8.5, Neutrophils (%) (Auto) 80.0H, Lymphocytes (%) (Auto) 11.1L, Monocytes (%) (Auto) 7.3, Eosinophils (%) (Auto) 1.1, Basophils (%) (Auto) 0.6, Sodium Level 143, Potassium Level 3.6, Chloride Level 105, Carbon Dioxide Level 32, Anion Gap 6, Blood Urea Nitrogen 18, Creatinine 1.2, Estimat Glomerular Filtration Rate , Glucose Level 76, Calcium Level 8.4L Height (Feet): 5 Height (Inches): 2.00 Weight (Pounds): 133 General Appearance: no apparent distress Respiratory/Chest: lungs clear Abdomen: soft Oleg Brown Oct 03, 2017 11:57
--- NOTE | 2017-10-03 14:03 | Infectious Diseases Prog Note ---
Assessment/Plan Assessment/Plan ASSESSMENT: The patient is an 87-year-old female with, Leukocytosis, ( on steroids ) improving Left parotitis improving Facial CT suggestive of left parotitis ?Developing PNA vs atelectasis -CXR 10/02: Increasing right basilar atelectasis and possible consolidation.Stable left basilar pleural and parenchymal disease, over [address] of the chest, no evidence of PE or infiltrate Afebrile. Rapid influenza A/B negative. CRP 1.8 CHF 09/29 SP EGD : Achalasia of esophagus ANDREI improved Dementia. History of pulmonary emboli History of back pain Depression PLAN: Switch IV vancomycin and Levaquin d# to PO Bactrim DS 1 tabd bid and PO augmentin 500/125mg bid to complete course -monitor Cr, electrolytes Monitor CBC. Monitor BMP. Monitor chest x-ray. f/u cx Subjective Allergies: Coded Allergies: ACETAMINOPHEN (Verified Allergy, Unknown, 09/26/17) CODEINE (Verified Allergy, Unknown, 09/26/17) HYDROCODONE (Verified Allergy, Unknown, 09/26/17) MORPHINE (Verified Allergy, Unknown, 09/26/17) Uncoded Allergies: tartrazine (Allergy, Unknown, 09/26/17) Subjective afebrile leukocytosis overall improved cx NTD Objective Vital Signs Last 24 Hour Vital Signs Date Time Temp Pulse Resp B/P (MAP) Pulse Ox O2 Delivery O2 Flow Rate FiO2 10/03/17 11:39 97.5 81 20 136/86 93 97.5 10/03/17 08:00 98.2 68 20 169/77 97 98.2 10/03/17 04:00 98.2 83 20 149/85 98 98.2 10/03/17 00:00 98.9 66 20 128/70 98 98.9 10/02/17 20:00 97.6 64 21 153/93 99 97.6 10/02/17 19:10 Nasal Cannula 3.0 32 10/02/17 19:10 98 Nasal Cannula 3.0 32 10/02/17 16:00 98.0 70 20 145/89 97 Nasal Cannula 2.0 98.0 Height (Feet): 5 Height (Inches): 2.00 Weight (Pounds): 133 Objective General Appearance: WD/WN Lines, tubes and drains: peripheral HEENT: normocephalic, atraumatic; L parotid swelling, erythema and induration much improved, less TTP Neck: non-tender, normal alignment Respiratory/Chest: chest wall non-tender, lungs rhonchi Cardiovascular/Chest: normal peripheral pulses, normal rate Abdomen: normal bowel sounds, non tender Genitourinary/Rectal: normal genital exam, normal rectal exam Extremities: normal range of motion, non-tender Skin Exam: normal pigmentation Neurologic: cook night II-XII grossly normal Laboratory Tests Test 10/03/17 05:50 White Blood Count 10.0 K/UL (4.8-10.8) Red Blood Count 4.05 M/UL (4.20-5.40) L Hemoglobin 12.9 G/DL (12.0-16.0) Hematocrit 39.8 % (37.0-47.0) Mean Corpuscular Volume 98 FL (80-99) Mean Corpuscular Hemoglobin 31.9 PG (27.0-31.0) H Mean Corpuscular Hemoglobin Concent 32.5 G/DL (32.0-36.0) Red Cell Distribution Width 15.1 % (11.6-14.8) H Platelet Count 304 K/UL (150-450) Mean Platelet Volume 8.5 FL (6.5-10.1) Neutrophils (%) (Auto) 80.0 % (45.0-75.0) H Lymphocytes (%) (Auto) 11.1 % (20.0-45.0) L Monocytes (%) (Auto) 7.3 % (1.0-10.0) Eosinophils (%) (Auto) 1.1 % (0.0-3.0) Basophils (%) (Auto) 0.6 % (0.0-2.0) Sodium Level 143 MMOL/L (136-145) Potassium Level 3.6 MMOL/L (3.5-5.1) Chloride Level 105 MMOL/L (98-107) Carbon Dioxide Level 32 MMOL/L (21-32) Anion Gap 6 mmol/L (5-15) Blood Urea Nitrogen 18 mg/dL (7-18) Creatinine 1.2 MG/DL (0.55-1.30) Estimat Glomerular Filtration Rate mL/min (>60) Glucose Level 76 MG/DL (74-106) Calcium Level 8.4 MG/DL (8.5-10.1) L Current Medications Medications (Trade) Dose Ordered Sig/Rambo Route PRN Reason Start Time Stop Time Status Last Admin Dose Admin Dextrose (Dextrose 50%) STAT PRN IV Hypoglycemia 10/02/17 14:30 10/28/17 14:29 Docusate Sodium (Colace) 100 mg BID ORAL 10/02/17 09:00 10/31/17 08:59 10/03/17 09:05 Enoxaparin Sodium (Lovenox) 30 mg Q24H SUBQ 10/02/17 09:00 10/27/17 08:59 10/03/17 09:06 Famotidine (Pepcid) 20 mg BID ORAL 10/02/17 09:00 10/27/17 08:59 10/03/17 09:05 Levofloxacin 50 ml @ 50 mls/hr Q24H IVPB 10/01/17 23:00 10/06/17 22:59 10/02/17 22:18 Lorazepam (Ativan 2mg/ml 1ml) 1 mg Q4H PRN IV For Anxiety 10/02/17 13:00 10/09/17 12:59 Nitroglycerin (Ntg) 0.4 mg Q5M PRN SL Prn Chest Pain 10/01/17 20:30 10/27/17 04:44 Polyethylene Glycol (Miralax) 17 gm BEDTIME ORAL 10/02/17 21:00 11/01/17 20:59 10/02/17 22:18 Quetiapine Fumarate (SEROquel) 25 mg Q12HR ORAL 10/02/17 21:00 11/01/17 20:59 10/03/17 09:05 Sodium Chloride 1,000 ml @ 30 mls/hr Q24H IV 10/01/17 21:00 10/29/17 20:59 10/02/17 22:17 Vancomycin HCl (Vanco rx to dose) 1 ea DAILY PRN MISC Per rx protocol 10/02/17 09:00 10/27/17 18:59 Vancomycin HCl 1 gm/Dextrose 275 ml @ 183.708 mls/hr Q36H IVPB 10/02/17 15:00 10/06/17 14:59 10/02/17 15:52 Ngoc Chery M.D. Oct 03, 2017 14:03
[2017-10-03] MEDS ORDERED: Fleet's Mineral Oil Enema RECTAL ONE (15:15)
[2017-10-03] MEDS: Mineral Oil 30ml ud ORAL PRN ×2 (15:53→23:07)
[2017-10-03 16:00] VITALS: BP 165/79
--- NOTE | 2017-10-03 16:38 | GI Progress Note ---
Assessment/Plan Problems: (1) Dementia ICD Codes: F03.90 - Unspecified dementia without behavioral disturbance SNOMED: 42774345 (2) Achalasia of esophagus ICD Codes: K22.0 - Achalasia of cardia SNOMED: 93305236 (3) Dyspnea ICD Codes: R06.00 - Dyspnea, unspecified SNOMED: 786716924 Status: stable Status Narrative Discussed with Dr. Ledesma. 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, unspecified Pathology shows Hoover Esophagus Recommendations po diet per ST elevate HOB EGD with Botox in future had extensive d/w son regarding plan of care PT evaluation fu pulmonary recs ppi dulcolax x 1 tonight if no BM okay for DC per GI standpoint Subjective Subjective limited Objective Last 24 Hour Vital Signs Date Time Temp Pulse Resp B/P (MAP) Pulse Ox O2 Delivery O2 Flow Rate FiO2 10/03/17 11:39 97.5 81 20 136/86 93 97.5 10/03/17 08:00 98.2 68 20 169/77 97 98.2 10/03/17 04:00 98.2 83 20 149/85 98 98.2 10/03/17 00:00 98.9 66 20 128/70 98 98.9 10/02/17 20:00 97.6 64 21 153/93 99 97.6 10/02/17 19:10 Nasal Cannula 3.0 32 10/02/17 19:10 98 Nasal Cannula 3.0 32 Intake and Output 10/02/17 10/03/17 19:00 07:00 Intake Total 865.000 ml Output Total 0 ml Balance 865.000 ml 0 ml IV Total 515.000 ml Other 350 ml Output Urine Total 0 ml # Voids 4 Laboratory Tests Test 10/03/17 05:50 White Blood Count 10.0 K/UL (4.8-10.8) Red Blood Count 4.05 M/UL (4.20-5.40) L Hemoglobin 12.9 G/DL (12.0-16.0) Hematocrit 39.8 % (37.0-47.0) Mean Corpuscular Volume 98 FL (80-99) Mean Corpuscular Hemoglobin 31.9 PG (27.0-31.0) H Mean Corpuscular Hemoglobin Concent 32.5 G/DL (32.0-36.0) Red Cell Distribution Width 15.1 % (11.6-14.8) H Platelet Count 304 K/UL (150-450) Mean Platelet Volume 8.5 FL (6.5-10.1) Neutrophils (%) (Auto) 80.0 % (45.0-75.0) H Lymphocytes (%) (Auto) 11.1 % (20.0-45.0) L Monocytes (%) (Auto) 7.3 % (1.0-10.0) Eosinophils (%) (Auto) 1.1 % (0.0-3.0) Basophils (%) (Auto) 0.6 % (0.0-2.0) Sodium Level 143 MMOL/L (136-145) Potassium Level 3.6 MMOL/L (3.5-5.1) Chloride Level 105 MMOL/L (98-107) Carbon Dioxide Level 32 MMOL/L (21-32) Anion Gap 6 mmol/L (5-15) Blood Urea Nitrogen 18 mg/dL (7-18) Creatinine 1.2 MG/DL (0.55-1.30) Estimat Glomerular Filtration Rate mL/min (>60) Glucose Level 76 MG/DL (74-106) Calcium Level 8.4 MG/DL (8.5-10.1) L Height (Feet): 5 Height (Inches): 2.00 Weight (Pounds): 133 General Appearance: WD/WN, no apparent distress, alert Cardiovascular: normal rate Respiratory/Chest: normal breath sounds, no respiratory distress Abdominal Exam: normal bowel sounds, non tender, soft Extremities: normal range of motion, non-tender Mary Anne Williamson N.P. Oct 03, 2017 16:38
[2017-10-03 20:00] VITALS: BP 168/102
[2017-10-03] MEDS: Miralax 17gm pkt ORAL SCH (20:38)
[2017-10-03] MEDS: Bactrim-DS 1 tab ORAL SCH (20:39)
--- NOTE | 2017-10-03 21:32 | Pulmonology Progress Note ---
Assessment/Plan Problems: (1) Pneumonia (2) Parotiditis (3) Dementia Assessment/Plan getting better, smiling might go back to med/surg respiratory treatment check sputum iv abx check cutlrues chest pt titrate fio2 to sat of 92% dc planning Subjective ROS Limited/Unobtainable: No Constitutional: Reports: no symptoms HEENT: Repors: no symptoms Allergies: Coded Allergies: ACETAMINOPHEN (Verified Allergy, Unknown, 09/26/17) CODEINE (Verified Allergy, Unknown, 09/26/17) HYDROCODONE (Verified Allergy, Unknown, 09/26/17) MORPHINE (Verified Allergy, Unknown, 09/26/17) Uncoded Allergies: tartrazine (Allergy, Unknown, 09/26/17) Objective Last 24 Hour Vital Signs Date Time Temp Pulse Resp B/P (MAP) Pulse Ox O2 Delivery O2 Flow Rate FiO2 10/03/17 20:00 97.9 81 17 168/102 97.9 10/03/17 16:00 97.5 82 20 165/79 100 97.5 10/03/17 11:39 97.5 81 20 136/86 93 97.5 10/03/17 08:00 98.2 68 20 169/77 97 98.2 10/03/17 04:00 98.2 83 20 149/85 98 98.2 10/03/17 00:00 98.9 66 20 128/70 98 98.9 Intake and Output 10/02/17 10/03/17 19:00 07:00 Intake Total 865.000 ml Output Total 0 ml Balance 865.000 ml 0 ml IV Total 515.000 ml Other 350 ml Output Urine Total 0 ml # Voids 4 Objective General Appearance: WD/WN Lines, tubes and drains: peripheral HEENT: normocephalic, atraumatic Neck: non-tender, normal alignment Respiratory/Chest: chest wall non-tender, lungs rhonchi Cardiovascular/Chest: normal peripheral pulses, normal rate Abdomen: normal bowel sounds, non tender Genitourinary/Rectal: normal genital exam, normal rectal exam Extremities: normal range of motion, non-tender Skin Exam: normal pigmentation 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: 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 care specialist II-XII grossly normal Laboratory Tests 10/03/17 05:50: White Blood Count 10.0, Red Blood Count 4.05L, Hemoglobin 12.9, Hematocrit 39.8 , Mean Corpuscular Volume 98, Mean Corpuscular Hemoglobin 31.9H, Mean Corpuscular Hemoglobin Concent 32.5, Red Cell Distribution Width 15.1H, Platelet Count 304, Mean Platelet Volume 8.5, Neutrophils (%) (Auto) 80.0H, Lymphocytes (%) (Auto) 11.1L, Monocytes (%) (Auto) 7.3, Eosinophils (%) (Auto) 1.1, Basophils (%) (Auto) 0.6, Sodium Level 143, Potassium Level 3.6, Chloride Level 105, Carbon Dioxide Level 32, Anion Gap 6, Blood Urea Nitrogen 18, Creatinine 1.2, Estimat Glomerular Filtration Rate , Glucose Level 76, Calcium Level 8.4L 10/03/17 16:30: Stool Occult Blood [Pending] Current Medications Medications (Trade) Dose Ordered Sig/Rambo Route PRN Reason Start Time Stop Time Status Last Admin Dose Admin Amoxicillin/ Clavulanate Potassium (Augmentin) 500 mg EVERY 12 HOURS ORAL 10/03/17 21:00 10/10/17 20:59 10/03/17 20:38 Dextrose (Dextrose 50%) STAT PRN IV Hypoglycemia 10/02/17 14:30 10/28/17 14:29 Docusate Sodium (Colace) 100 mg BID ORAL 10/02/17 09:00 10/31/17 08:59 10/03/17 17:37 Enoxaparin Sodium (Lovenox) 30 mg Q24H SUBQ 10/02/17 09:00 10/27/17 08:59 10/03/17 09:06 Famotidine (Pepcid) 20 mg BID ORAL 10/02/17 09:00 10/27/17 08:59 10/03/17 17:37 Lorazepam (Ativan 2mg/ml 1ml) 1 mg Q4H PRN IV For Anxiety 10/02/17 13:00 10/09/17 12:59 Mineral Oil (Mineral Oil) 30 ml DAILY PRN ORAL Constipation 10/03/17 14:15 11/02/17 14:14 10/03/17 15:53 Nitroglycerin (Ntg) 0.4 mg Q5M PRN SL Prn Chest Pain 10/01/17 20:30 10/27/17 04:44 Polyethylene Glycol (Miralax) 17 gm BEDTIME ORAL 10/02/17 21:00 11/01/17 20:59 10/03/17 20:38 Quetiapine Fumarate (SEROquel) 25 mg Q12HR ORAL 10/02/17 21:00 11/01/17 20:59 10/03/17 20:38 Sodium Chloride 1,000 ml @ 30 mls/hr Q24H IV 10/01/17 21:00 10/29/17 20:59 10/03/17 20:38 Trimethoprim/ Sulfamethoxazole (Bactrim-DS) 1 tab TWICE A DAY ORAL 10/03/17 21:00 10/10/17 20:59 10/03/17 20:39 Lobito Multani MD Oct 03, 2017 21:32
--- NOTE | 2017-10-03 21:57 | General Progress Note ---
Assessment/Plan Problem List: (1) Parotiditis ICD Codes: K11.20 - Sialoadenitis, unspecified SNOMED: 43140044 (2) Pneumonia ICD Codes: J18.9 - Pneumonia, unspecified organism SNOMED: 968910057 (3) Dementia ICD Codes: F03.90 - Unspecified dementia without behavioral disturbance SNOMED: 96664442 (4) Achalasia of esophagus ICD Codes: K22.0 - Achalasia of cardia SNOMED: 96057441 (5) Dyspnea ICD Codes: R06.00 - Dyspnea, unspecified SNOMED: 125172224 Status: progressing Assessment/Plan afebrile sepsis reviewed chart and meds vitals stable achlasia pna diet per gi Subjective ROS Limited/Unobtainable: Yes Constitutional: Reports: no symptoms Allergies: Coded Allergies: ACETAMINOPHEN (Verified Allergy, Unknown, 09/26/17) CODEINE (Verified Allergy, Unknown, 09/26/17) HYDROCODONE (Verified Allergy, Unknown, 09/26/17) MORPHINE (Verified Allergy, Unknown, 09/26/17) Uncoded Allergies: tartrazine (Allergy, Unknown, 09/26/17) Objective Last 24 Hour Vital Signs Date Time Temp Pulse Resp B/P (MAP) Pulse Ox O2 Delivery O2 Flow Rate FiO2 10/03/17 20:00 97.9 81 17 168/102 97.9 10/03/17 16:00 97.5 82 20 165/79 100 97.5 10/03/17 11:39 97.5 81 20 136/86 93 97.5 10/03/17 08:00 98.2 68 20 169/77 97 98.2 10/03/17 04:00 98.2 83 20 149/85 98 98.2 10/03/17 00:00 98.9 66 20 128/70 98 98.9 Intake and Output 10/02/17 10/03/17 19:00 07:00 Intake Total 865.000 ml Output Total 0 ml Balance 865.000 ml 0 ml IV Total 515.000 ml Other 350 ml Output Urine Total 0 ml # Voids 4 Laboratory Tests 10/03/17 05:50: White Blood Count 10.0, Red Blood Count 4.05L, Hemoglobin 12.9, Hematocrit 39.8 , Mean Corpuscular Volume 98, Mean Corpuscular Hemoglobin 31.9H, Mean Corpuscular Hemoglobin Concent 32.5, Red Cell Distribution Width 15.1H, Platelet Count 304, Mean Platelet Volume 8.5, Neutrophils (%) (Auto) 80.0H, Lymphocytes (%) (Auto) 11.1L, Monocytes (%) (Auto) 7.3, Eosinophils (%) (Auto) 1.1, Basophils (%) (Auto) 0.6, Sodium Level 143, Potassium Level 3.6, Chloride Level 105, Carbon Dioxide Level 32, Anion Gap 6, Blood Urea Nitrogen 18, Creatinine 1.2, Estimat Glomerular Filtration Rate , Glucose Level 76, Calcium Level 8.4L 10/03/17 16:30: Stool Occult Blood [Pending] Height (Feet): 5 Height (Inches): 2.00 Weight (Pounds): 133 General Appearance: confused Cardiovascular: normal rate Respiratory/Chest: lungs clear Cullen Briceno MD Oct 03, 2017 21:57
[2017-10-04] VITALS: BP 130/109
[2017-10-04 04:00] VITALS: BP 145/75
[2017-10-04 08:00] VITALS: BP 129/79
[2017-10-04] MEDS: Docusate 100mg/10ml Liq ORAL SCH ×2 (08:28→17:17)
[2017-10-04] MEDS: Bactrim-DS 1 tab ORAL SCH ×2 (08:29→17:17)
[2017-10-04] MEDS: Enoxaparin 30mg Inj SUBQ SCH (08:30)
[2017-10-04 09:29] LABS: HEMATOCRIT 39.4 % (37.0-47.0); HEMOGLOBIN 13.1 G/DL (12.0-16.0); MEAN CORPUSCULAR VOLUME 98 FL (80-99); PLATELET COUNT 280 K/UL (150-450); RED BLOOD COUNT 4.02 M/UL (4.20-5.40); RED CELL DISTRIBUTION WIDTH 14.8 % (11.6-14.8); WHITE BLOOD COUNT 14.3 K/UL (4.8-10.8)
--- NOTE | 2017-10-04 09:36 | General Progress Note ---
Assessment/Plan Assessment/Plan #. Leukocytosis, likely secondary to infection. --> Ongoing antibiotics. --> Elevated from yesterday. --> Monitor closely. #. Chronic obstructive pulmonary disease exacerbation. --> To be seen by Pulmonary team. We started her on Keflex. --> Closely monitor. Pulmonary treatments have been started. #. Pneumonia history, status post treatment in the past with antibiotics. --> I have consulted ID Service as well. Wbc count downtrending. #. Tremor, shaking, unsure if this was a seizure episode and I have consulted the patient with Neurology, Dr. Mendes. No seizures today #. Dementia. Closely monitor. Neurology Service to see if the patient needs to start any medications. --> CT scan of the head did not show any acute intracranial pathology. #. Left pleural effusion, to be seen again by Dr. Gandhi. Subjective Date patient seen: Oct 03, 2017 Constitutional: Denies: no symptoms, chills, diaphoresis, fever, malaise, weakness, other HEENT: Denies: no symptoms, eye pain, blurred vision, tearing, double vision, ear pain, ear discharge, nose pain, nose congestion, throat pain, throat swelling, mouth pain, mouth swelling, other Cardiovascular: Denies: no symptoms, chest pain, edema, irregular heart rate, lightheadedness, palpitations, syncope, other Respiratory: Denies: no symptoms, cough, orthopnea, shortness of breath, SOB with excertion, SOB at rest, sputum, stridor, wheezing, other Gastrointestinal/Abdominal: Denies: no symptoms, abdomen distended, abdominal pain, black stools, tarry stools, blood in stool, constipated, diarrhea, difficulty swallowing, nausea, poor appetite, poor fluid intake, rectal bleeding , vomiting, other Genitourinary: Denies: no symptoms, burning, discharge, frequency, flank pain, hematuria, incontinence, pain, urgency, other Neurologic/Psychiatric: Denies: no symptoms, anxiety, depressed, emotional problems, headache, numbness, paresthesia, pre-existing deficit, seizure, tingling, tremors, weakness, other Hematologic/Lymphatic: Reports: anemia Allergies: Coded Allergies: ACETAMINOPHEN (Verified Allergy, Unknown, 09/26/17) CODEINE (Verified Allergy, Unknown, 09/26/17) HYDROCODONE (Verified Allergy, Unknown, 09/26/17) MORPHINE (Verified Allergy, Unknown, 09/26/17) Uncoded Allergies: tartrazine (Allergy, Unknown, 09/26/17) Subjective NAD. Afebrile. Wbc count elevated. Objective Last 24 Hour Vital Signs Date Time Temp Pulse Resp B/P (MAP) Pulse Ox O2 Delivery O2 Flow Rate FiO2 10/04/17 07:55 98 Nasal Cannula 3.0 32 10/04/17 07:55 Nasal Cannula 3.0 32 10/04/17 04:00 97.9 80 18 145/75 100 97.9 10/04/17 00:00 98.4 96 18 130/109 99 98.4 10/03/17 20:00 97.9 81 17 168/102 97.9 10/03/17 16:00 97.5 82 20 165/79 100 97.5 10/03/17 11:39 97.5 81 20 136/86 93 97.5 Intake and Output 10/03/17 10/04/17 19:00 07:00 Intake Total 270 ml 330 ml Balance 270 ml 330 ml Intake Oral 240 ml IV Total 30 ml 330 ml # Voids 3 3 # Bowel Movements 1 Laboratory Tests 10/03/17 16:30: Stool Occult Blood [Pending] 10/04/17 08:50: White Blood Count 14.3H, Red Blood Count 4.02L, Hemoglobin 13.1, Hematocrit 39.4 , Mean Corpuscular Volume 98, Mean Corpuscular Hemoglobin 32.5H, Mean Corpuscular Hemoglobin Concent 33.2, Red Cell Distribution Width 14.8, Platelet Count 280, Mean Platelet Volume 7.6, Neutrophils (%) (Auto) , Lymphocytes (%) ( Auto) , Monocytes (%) (Auto) , Eosinophils (%) (Auto) , Basophils (%) (Auto) , Neutrophils % (Manual) [Pending], Lymphocytes % (Manual) [Pending], Platelet Estimate [Pending], Platelet Morphology [Pending], Sodium Level [Pending], Potassium Level [Pending], Chloride Level [Pending], Carbon Dioxide Level [ Pending], Blood Urea Nitrogen [Pending], Creatinine [Pending], Estimat Glomerular Filtration Rate [Pending], Glucose Level [Pending], Calcium Level [ Pending] Height (Feet): 5 Height (Inches): 2.00 Weight (Pounds): 133 Respiratory/Chest: lungs clear Abdomen: non tender, soft Oleg Brown Oct 04, 2017 09:36
[2017-10-04 09:52] LABS: ANION GAP 4 mmol/L (5-15); BLOOD UREA NITROGEN 15 mg/dL (7-18); CALCIUM 8.1 MG/DL (8.5-10.1); CARBON DIOXIDE 35 MMOL/L (21-32); CHLORIDE 103 MMOL/L (98-107); CREATININE 1.1 MG/DL (0.55-1.30); POTASSIUM 3.7 MMOL/L (3.5-5.1); SODIUM 141 MMOL/L (136-145)
--- NOTE | 2017-10-04 11:18 | GI Progress Note ---
Assessment/Plan Problems: (1) Dementia ICD Codes: F03.90 - Unspecified dementia without behavioral disturbance SNOMED: 04765916 (2) Achalasia of esophagus ICD Codes: K22.0 - Achalasia of cardia SNOMED: 59381424 (3) Dyspnea ICD Codes: R06.00 - Dyspnea, unspecified SNOMED: 645579103 Status: stable Status Narrative Discussed with Dr. Ledesma. 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, unspecified Pathology shows Hoover Esophagus Recommendations fu pulmonary recs po diet per ST elevate HOB EGD with Botox in future PT evaluation ppi bowel regime okay for DC per GI standpoint had extensive d/w son regarding plan of care Subjective Subjective limited Objective Last 24 Hour Vital Signs Date Time Temp Pulse Resp B/P (MAP) Pulse Ox O2 Delivery O2 Flow Rate FiO2 10/04/17 08:00 97.5 66 18 129/79 97 97.5 10/04/17 07:55 98 Nasal Cannula 3.0 32 10/04/17 07:55 Nasal Cannula 3.0 32 10/04/17 04:00 97.9 80 18 145/75 100 97.9 10/04/17 00:00 98.4 96 18 130/109 99 98.4 10/03/17 20:00 97.9 81 17 168/102 97.9 10/03/17 16:00 97.5 82 20 165/79 100 97.5 10/03/17 11:39 97.5 81 20 136/86 93 97.5 Intake and Output 10/03/17 10/04/17 19:00 07:00 Intake Total 270 ml 330 ml Balance 270 ml 330 ml Intake Oral 240 ml IV Total 30 ml 330 ml # Voids 3 3 # Bowel Movements 1 Laboratory Tests Test 10/03/17 16:30 10/04/17 08:50 Stool Occult Blood Positive (NEGATIVE) White Blood Count 14.3 K/UL (4.8-10.8) H Red Blood Count 4.02 M/UL (4.20-5.40) L Hemoglobin 13.1 G/DL (12.0-16.0) Hematocrit 39.4 % (37.0-47.0) Mean Corpuscular Volume 98 FL (80-99) Mean Corpuscular Hemoglobin 32.5 PG (27.0-31.0) H Mean Corpuscular Hemoglobin Concent 33.2 G/DL (32.0-36.0) Red Cell Distribution Width 14.8 % (11.6-14.8) Platelet Count 280 K/UL (150-450) Mean Platelet Volume 7.6 FL (6.5-10.1) Neutrophils (%) (Auto) % (45.0-75.0) Lymphocytes (%) (Auto) % (20.0-45.0) Monocytes (%) (Auto) % (1.0-10.0) Eosinophils (%) (Auto) % (0.0-3.0) Basophils (%) (Auto) % (0.0-2.0) Differential Total Cells Counted 100 Neutrophils % (Manual) 88 % (45-75) H Lymphocytes % (Manual) 8 % (20-45) L Monocytes % (Manual) 3 % (1-10) Eosinophils % (Manual) 1 % (0-3) Basophils % (Manual) 0 % (0-2) Band Neutrophils 0 % (0-8) Platelet Estimate Adequate Platelet Morphology Normal Anisocytosis 1+ Sodium Level 141 MMOL/L (136-145) Potassium Level 3.7 MMOL/L (3.5-5.1) Chloride Level 103 MMOL/L (98-107) Carbon Dioxide Level 35 MMOL/L (21-32) H Anion Gap 4 mmol/L (5-15) L Blood Urea Nitrogen 15 mg/dL (7-18) Creatinine 1.1 MG/DL (0.55-1.30) Estimat Glomerular Filtration Rate mL/min (>60) Glucose Level 111 MG/DL (74-106) H Calcium Level 8.1 MG/DL (8.5-10.1) L Height (Feet): 5 Height (Inches): 2.00 Weight (Pounds): 133 General Appearance: WD/WN, no apparent distress, alert Cardiovascular: normal rate Respiratory/Chest: normal breath sounds, no respiratory distress Abdominal Exam: normal bowel sounds, non tender, soft Extremities: normal range of motion, non-tender Mary Anne Williamson N.P. Oct 04, 2017 11:18
[2017-10-04 12:00] VITALS: BP 135/70
[2017-10-04] MEDS ORDERED: 1/2 NS 1000ml IV ONE ×3 (14:11→14:47)
[2017-10-04] MEDS ORDERED: Tubing IV Secondary IV ONE ×2 (14:11→14:46)
[2017-10-04] MEDS ORDERED: NS 275ml ONE ×2 (14:11→14:46)
[2017-10-04 16:00] VITALS: BP 136/76
--- NOTE | 2017-10-04 16:08 | Cardiology Report ---
APPROVED REPORT EKG Measurement Heart [id number] Sinus tachycardia Low voltage QRS Cannot rule out Anterior infarct, age undetermined Prolonged QT Abnormal ECG
--- NOTE | 2017-10-04 16:31 | Infectious Diseases Prog Note ---
Assessment/Plan Assessment/Plan ASSESSMENT: The patient is an 87-year-old female with, Leukocytosis, ( s/p steroids 10/01 ) , recurrent Left parotitis improving Facial CT suggestive of left parotitis ?Developing PNA vs atelectasis -CXR 10/02: Increasing right basilar atelectasis and possible consolidation.Stable left basilar pleural and parenchymal disease, over [address] of the chest, no evidence of PE or infiltrate Afebrile. Rapid influenza A/B negative. CRP 1.8 CHF 09/29 SP EGD : Achalasia of esophagus ANDREI improved Dementia. History of pulmonary emboli History of back pain Depression PLAN: Continue PO Bactrim DS 1 tabd bid and PO augmentin 500/125mg bid abx d# for parotitis -monitor Cr, electrolytes -10/03 SP IV Vanco and LEvaquin #7 Monitor CBC. Monitor BMP. Monitor chest x-ray. f/u cx CBC, CXR am Subjective Allergies: Coded Allergies: ACETAMINOPHEN (Verified Allergy, Unknown, 09/26/17) CODEINE (Verified Allergy, Unknown, 09/26/17) HYDROCODONE (Verified Allergy, Unknown, 09/26/17) MORPHINE (Verified Allergy, Unknown, 09/26/17) Uncoded Allergies: tartrazine (Allergy, Unknown, 09/26/17) Subjective afebrile recurrent leukocytosis cx NTD Objective Vital Signs Last 24 Hour Vital Signs Date Time Temp Pulse Resp B/P (MAP) Pulse Ox O2 Delivery O2 Flow Rate FiO2 10/04/17 12:00 96.8 74 22 135/70 99 96.8 10/04/17 08:00 97.5 66 18 129/79 97 97.5 10/04/17 07:55 98 Nasal Cannula 3.0 32 10/04/17 07:55 Nasal Cannula 3.0 32 10/04/17 04:00 97.9 80 18 145/75 100 97.9 10/04/17 00:00 98.4 96 18 130/109 99 98.4 10/03/17 20:00 97.9 81 17 168/102 97.9 Height (Feet): 5 Height (Inches): 2.00 Weight (Pounds): 133 Objective General Appearance: WD/WN Lines, tubes and drains: peripheral HEENT: normocephalic, atraumatic; L parotid swelling, erythema and induration much improved, less TTP Neck: non-tender, normal alignment Respiratory/Chest: chest wall non-tender, lungs rhonchi Cardiovascular/Chest: normal peripheral pulses, normal rate Abdomen: normal bowel sounds, non tender Genitourinary/Rectal: normal genital exam, normal rectal exam Extremities: normal range of motion, non-tender Skin Exam: normal pigmentation Neurologic: transition rn II-XII grossly normal Laboratory Tests Test 10/03/17 16:30 10/04/17 08:50 Stool Occult Blood Positive (NEGATIVE) White Blood Count 14.3 K/UL (4.8-10.8) H Red Blood Count 4.02 M/UL (4.20-5.40) L Hemoglobin 13.1 G/DL (12.0-16.0) Hematocrit 39.4 % (37.0-47.0) Mean Corpuscular Volume 98 FL (80-99) Mean Corpuscular Hemoglobin 32.5 PG (27.0-31.0) H Mean Corpuscular Hemoglobin Concent 33.2 G/DL (32.0-36.0) Red Cell Distribution Width 14.8 % (11.6-14.8) Platelet Count 280 K/UL (150-450) Mean Platelet Volume 7.6 FL (6.5-10.1) Neutrophils (%) (Auto) % (45.0-75.0) Lymphocytes (%) (Auto) % (20.0-45.0) Monocytes (%) (Auto) % (1.0-10.0) Eosinophils (%) (Auto) % (0.0-3.0) Basophils (%) (Auto) % (0.0-2.0) Differential Total Cells Counted 100 Neutrophils % (Manual) 88 % (45-75) H Lymphocytes % (Manual) 8 % (20-45) L Monocytes % (Manual) 3 % (1-10) Eosinophils % (Manual) 1 % (0-3) Basophils % (Manual) 0 % (0-2) Band Neutrophils 0 % (0-8) Platelet Estimate Adequate Platelet Morphology Normal Anisocytosis 1+ Sodium Level 141 MMOL/L (136-145) Potassium Level 3.7 MMOL/L (3.5-5.1) Chloride Level 103 MMOL/L (98-107) Carbon Dioxide Level 35 MMOL/L (21-32) H Anion Gap 4 mmol/L (5-15) L Blood Urea Nitrogen 15 mg/dL (7-18) Creatinine 1.1 MG/DL (0.55-1.30) Estimat Glomerular Filtration Rate mL/min (>60) Glucose Level 111 MG/DL (74-106) H Calcium Level 8.1 MG/DL (8.5-10.1) L Current Medications Medications (Trade) Dose Ordered Sig/Rambo Route PRN Reason Start Time Stop Time Status Last Admin Dose Admin Amoxicillin/ Clavulanate Potassium (Augmentin) 500 mg EVERY 12 HOURS ORAL 10/03/17 21:00 10/10/17 20:59 10/04/17 08:29 Clonidine HCl (Catapres Tab) 0.1 mg Q6HR PRN ORAL For High Blood Pressure 10/03/17 21:45 11/02/17 21:44 Dextrose (Dextrose 50%) STAT PRN IV Hypoglycemia 10/02/17 14:30 10/28/17 14:29 Docusate Sodium (Colace) 100 mg BID ORAL 10/02/17 09:00 10/31/17 08:59 10/04/17 08:28 Enoxaparin Sodium (Lovenox) 30 mg Q24H SUBQ 10/02/17 09:00 10/27/17 08:59 10/04/17 08:30 Famotidine (Pepcid) 20 mg BID ORAL 10/02/17 09:00 10/27/17 08:59 10/04/17 08:29 Lorazepam (Ativan 2mg/ml 1ml) 1 mg Q4H PRN IV For Anxiety 10/02/17 13:00 10/09/17 12:59 Mineral Oil (Mineral Oil) 30 ml DAILY PRN ORAL Constipation 10/03/17 14:15 11/02/17 14:14 10/03/17 23:07 Nitroglycerin (Ntg) 0.4 mg Q5M PRN SL Prn Chest Pain 10/01/17 20:30 10/27/17 04:44 Polyethylene Glycol (Miralax) 17 gm BEDTIME ORAL 10/02/17 21:00 11/01/17 20:59 10/03/17 20:38 Quetiapine Fumarate (SEROquel) 25 mg Q12HR ORAL 10/02/17 21:00 11/01/17 20:59 10/04/17 08:29 Sodium Chloride 1,000 ml @ 30 mls/hr Q24H IV 10/01/17 21:00 10/29/17 20:59 10/03/17 20:38 Trimethoprim/ Sulfamethoxazole (Bactrim-DS) 1 tab TWICE A DAY ORAL 10/03/17 21:00 10/10/17 20:59 10/04/17 08:29 Ngoc Chery M.D. Oct 04, 2017 16:31
--- NOTE | 2017-10-04 20:00 | Pulmonology Progress Note ---
Assessment/Plan Problems: (1) Pneumonia (2) Parotiditis (3) Dementia Assessment/Plan getting better, smiling respiratory treatment check sputum po, abx check cutlrues chest pt titrate fio2 to sat of 92% dc planning Subjective ROS Limited/Unobtainable: Yes Interval Events: looks comfortable Allergies: Coded Allergies: ACETAMINOPHEN (Verified Allergy, Unknown, 09/26/17) CODEINE (Verified Allergy, Unknown, 09/26/17) HYDROCODONE (Verified Allergy, Unknown, 09/26/17) MORPHINE (Verified Allergy, Unknown, 09/26/17) Uncoded Allergies: tartrazine (Allergy, Unknown, 09/26/17) Objective Last 24 Hour Vital Signs Date Time Temp Pulse Resp B/P (MAP) Pulse Ox O2 Delivery O2 Flow Rate FiO2 10/04/17 19:26 Nasal Cannula 3.0 32 10/04/17 19:26 97 Nasal Cannula 3.0 32 10/04/17 16:00 97.3 79 20 136/76 98 Nasal Cannula 3.0 97.3 10/04/17 12:00 96.8 74 22 135/70 99 96.8 10/04/17 08:00 97.5 66 18 129/79 97 97.5 10/04/17 07:55 98 Nasal Cannula 3.0 32 10/04/17 07:55 Nasal Cannula 3.0 32 10/04/17 04:00 97.9 80 18 145/75 100 97.9 10/04/17 00:00 98.4 96 18 130/109 99 98.4 Intake and Output 10/03/17 10/04/17 19:00 07:00 Intake Total 270 ml 360 ml Balance 270 ml 360 ml Intake Oral 240 ml IV Total 30 ml 360 ml # Voids 3 3 # Bowel Movements 1 Objective General Appearance: WD/WN Lines, tubes and drains: peripheral HEENT: normocephalic, atraumatic Neck: non-tender, normal alignment Respiratory/Chest: chest wall non-tender, lungs rhonchi Cardiovascular/Chest: normal peripheral pulses, normal rate Abdomen: normal bowel sounds, non tender Genitourinary/Rectal: normal genital exam, normal rectal exam Extremities: normal range of motion, non-tender Skin Exam: normal pigmentation 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 Laboratory Tests 10/04/17 08:50: White Blood Count 14.3H, Red Blood Count 4.02L, Hemoglobin 13.1, Hematocrit 39.4 , Mean Corpuscular Volume 98, Mean Corpuscular Hemoglobin 32.5H, Mean Corpuscular Hemoglobin Concent 33.2, Red Cell Distribution Width 14.8, Platelet Count 280, Mean Platelet Volume 7.6, Neutrophils (%) (Auto) , Lymphocytes (%) ( Auto) , Monocytes (%) (Auto) , Eosinophils (%) (Auto) , Basophils (%) (Auto) , Differential Total Cells Counted 100, Neutrophils % (Manual) 88H, Lymphocytes % (Manual) 8L, Monocytes % (Manual) 3, Eosinophils % (Manual) 1, Basophils % ( Manual) 0, Band Neutrophils 0, Platelet Estimate Adequate, Platelet Morphology Normal, Anisocytosis 1+, Sodium Level 141, Potassium Level 3.7, Chloride Level 103, Carbon Dioxide Level 35H, Anion Gap 4L, Blood Urea Nitrogen 15, Creatinine 1.1, Estimat Glomerular Filtration Rate , Glucose Level 111H, Calcium Level 8.1L Current Medications Medications (Trade) Dose Ordered Sig/Rambo Route PRN Reason Start Time Stop Time Status Last Admin Dose Admin Amoxicillin/ Clavulanate Potassium (Augmentin) 500 mg EVERY 12 HOURS ORAL 10/03/17 21:00 10/10/17 20:59 10/04/17 08:29 Clonidine HCl (Catapres Tab) 0.1 mg Q6HR PRN ORAL For High Blood Pressure 10/03/17 21:45 11/02/17 21:44 Dextrose (Dextrose 50%) STAT PRN IV Hypoglycemia 10/02/17 14:30 10/28/17 14:29 Docusate Sodium (Colace) 100 mg BID ORAL 10/02/17 09:00 10/31/17 08:59 10/04/17 17:17 Enoxaparin Sodium (Lovenox) 30 mg Q24H SUBQ 10/02/17 09:00 10/27/17 08:59 10/04/17 08:30 Famotidine (Pepcid) 20 mg BID ORAL 10/02/17 09:00 10/27/17 08:59 10/04/17 17:17 Lorazepam (Ativan 2mg/ml 1ml) 1 mg Q4H PRN IV For Anxiety 10/02/17 13:00 10/09/17 12:59 Mineral Oil (Mineral Oil) 30 ml DAILY PRN ORAL Constipation 10/03/17 14:15 11/02/17 14:14 10/03/17 23:07 Nitroglycerin (Ntg) 0.4 mg Q5M PRN SL Prn Chest Pain 10/01/17 20:30 10/27/17 04:44 Polyethylene Glycol (Miralax) 17 gm BEDTIME ORAL 10/02/17 21:00 11/01/17 20:59 10/03/17 20:38 Quetiapine Fumarate (SEROquel) 25 mg Q12HR ORAL 10/02/17 21:00 11/01/17 20:59 10/04/17 08:29 Sodium Chloride 1,000 ml @ 30 mls/hr Q24H IV 10/01/17 21:00 10/29/17 20:59 10/03/17 20:38 Trimethoprim/ Sulfamethoxazole (Bactrim-DS) 1 tab TWICE A DAY ORAL 10/03/17 21:00 10/10/17 20:59 10/04/17 17:17 Lobito Multani MD Oct 04, 2017 20:00
[2017-10-04 20:02] VITALS: BP 145/89
[2017-10-04] MEDS: Miralax 17gm pkt ORAL SCH (20:54)
--- NOTE | 2017-10-04 22:59 | General Progress Note ---
Assessment/Plan Problem List: (1) mdd Assessment & Plan: mdd dementia with behavioral dist encephalopathy -seroquel 25 mg bid -ativan prn Status: stable Assessment/Plan mdd dementia with behavioral dist encephalopathy -seroquel 25 mg bid -ativan prn -dc sitter Subjective Date patient seen: Oct 03, 2017 Neurologic/Psychiatric: Reports: anxiety, depressed, emotional problems Allergies: Coded Allergies: ACETAMINOPHEN (Verified Allergy, Unknown, 09/26/17) CODEINE (Verified Allergy, Unknown, 09/26/17) HYDROCODONE (Verified Allergy, Unknown, 09/26/17) MORPHINE (Verified Allergy, Unknown, 09/26/17) Uncoded Allergies: tartrazine (Allergy, Unknown, 09/26/17) Objective Last 24 Hour Vital Signs Date Time Temp Pulse Resp B/P (MAP) Pulse Ox O2 Delivery O2 Flow Rate FiO2 10/04/17 20:02 97.9 71 20 145/89 99 Room Air 97.9 10/04/17 19:26 Nasal Cannula 3.0 32 10/04/17 19:26 97 Nasal Cannula 3.0 32 10/04/17 16:00 97.3 79 20 136/76 98 Nasal Cannula 3.0 97.3 10/04/17 12:00 96.8 74 22 135/70 99 96.8 10/04/17 08:00 97.5 66 18 129/79 97 97.5 10/04/17 07:55 98 Nasal Cannula 3.0 32 10/04/17 07:55 Nasal Cannula 3.0 32 10/04/17 04:00 97.9 80 18 145/75 100 97.9 10/04/17 00:00 98.4 96 18 130/109 99 98.4 Intake and Output 10/03/17 10/04/17 19:00 07:00 Intake Total 270 ml 360 ml Balance 270 ml 360 ml Intake Oral 240 ml IV Total 30 ml 360 ml # Voids 3 3 # Bowel Movements 1 Laboratory Tests 10/04/17 08:50: White Blood Count 14.3H, Red Blood Count 4.02L, Hemoglobin 13.1, Hematocrit 39.4 , Mean Corpuscular Volume 98, Mean Corpuscular Hemoglobin 32.5H, Mean Corpuscular Hemoglobin Concent 33.2, Red Cell Distribution Width 14.8, Platelet Count 280, Mean Platelet Volume 7.6, Neutrophils (%) (Auto) , Lymphocytes (%) ( Auto) , Monocytes (%) (Auto) , Eosinophils (%) (Auto) , Basophils (%) (Auto) , Differential Total Cells Counted 100, Neutrophils % (Manual) 88H, Lymphocytes % (Manual) 8L, Monocytes % (Manual) 3, Eosinophils % (Manual) 1, Basophils % ( Manual) 0, Band Neutrophils 0, Platelet Estimate Adequate, Platelet Morphology Normal, Anisocytosis 1+, Sodium Level 141, Potassium Level 3.7, Chloride Level 103, Carbon Dioxide Level 35H, Anion Gap 4L, Blood Urea Nitrogen 15, Creatinine 1.1, Estimat Glomerular Filtration Rate , Glucose Level 111H, Calcium Level 8.1L Height (Feet): 5 Height (Inches): 2.00 Weight (Pounds): 157 General Appearance: no apparent distress, alert, confused, agitated Shane Garcia M.D. Oct 04, 2017 22:59
--- NOTE | 2017-10-04 23:00 | General Progress Note ---
Assessment/Plan Problem List: (1) mdd Assessment & Plan: mdd dementia with behavioral dist encephalopathy -seroquel 25 mg bid -ativan prn Assessment/Plan mdd dementia with behavioral dist encephalopathy -seroquel 25 mg bid -ativan prn -dc sitter Subjective Date patient seen: Oct 04, 2017 Neurologic/Psychiatric: Reports: anxiety Allergies: Coded Allergies: ACETAMINOPHEN (Verified Allergy, Unknown, 09/26/17) CODEINE (Verified Allergy, Unknown, 09/26/17) HYDROCODONE (Verified Allergy, Unknown, 09/26/17) MORPHINE (Verified Allergy, Unknown, 09/26/17) Uncoded Allergies: tartrazine (Allergy, Unknown, 09/26/17) Objective Last 24 Hour Vital Signs Date Time Temp Pulse Resp B/P (MAP) Pulse Ox O2 Delivery O2 Flow Rate FiO2 10/04/17 20:02 97.9 71 20 145/89 99 Room Air 97.9 10/04/17 19:26 Nasal Cannula 3.0 32 10/04/17 19:26 97 Nasal Cannula 3.0 32 10/04/17 16:00 97.3 79 20 136/76 98 Nasal Cannula 3.0 97.3 10/04/17 12:00 96.8 74 22 135/70 99 96.8 10/04/17 08:00 97.5 66 18 129/79 97 97.5 10/04/17 07:55 98 Nasal Cannula 3.0 32 10/04/17 07:55 Nasal Cannula 3.0 32 10/04/17 04:00 97.9 80 18 145/75 100 97.9 10/04/17 00:00 98.4 96 18 130/109 99 98.4 Intake and Output 10/03/17 10/04/17 19:00 07:00 Intake Total 270 ml 360 ml Balance 270 ml 360 ml Intake Oral 240 ml IV Total 30 ml 360 ml # Voids 3 3 # Bowel Movements 1 Laboratory Tests 10/04/17 08:50: White Blood Count 14.3H, Red Blood Count 4.02L, Hemoglobin 13.1, Hematocrit 39.4 , Mean Corpuscular Volume 98, Mean Corpuscular Hemoglobin 32.5H, Mean Corpuscular Hemoglobin Concent 33.2, Red Cell Distribution Width 14.8, Platelet Count 280, Mean Platelet Volume 7.6, Neutrophils (%) (Auto) , Lymphocytes (%) ( Auto) , Monocytes (%) (Auto) , Eosinophils (%) (Auto) , Basophils (%) (Auto) , Differential Total Cells Counted 100, Neutrophils % (Manual) 88H, Lymphocytes % (Manual) 8L, Monocytes % (Manual) 3, Eosinophils % (Manual) 1, Basophils % ( Manual) 0, Band Neutrophils 0, Platelet Estimate Adequate, Platelet Morphology Normal, Anisocytosis 1+, Sodium Level 141, Potassium Level 3.7, Chloride Level 103, Carbon Dioxide Level 35H, Anion Gap 4L, Blood Urea Nitrogen 15, Creatinine 1.1, Estimat Glomerular Filtration Rate , Glucose Level 111H, Calcium Level 8.1L Height (Feet): 5 Height (Inches): 2.00 Weight (Pounds): 157 Shane Garcia M.D. Oct 04, 2017 23:00
--- NOTE | 2017-10-04 23:37 | General Progress Note ---
Progress Note Progress Note parotitis pna needs to go to snf weak and debilitated achlasia left a message to son diet per gi afebrile abx per id not hypoxic Cullen Briceno MD Oct 04, 2017 23:37
[2017-10-05 06:47] LABS: BASOPHILS % (AUTO) 0.6 % (0.0-2.0); EOSINOPHILS % (AUTO) 3.1 % (0.0-3.0); HEMATOCRIT 35.5 % (37.0-47.0); HEMOGLOBIN 11.8 G/DL (12.0-16.0); LYMPHOCYTES % (AUTO) 9.9 % (20.0-45.0); MEAN CORPUSCULAR VOLUME 97 FL (80-99); MONOCYTES % (AUTO) 5.7 % (1.0-10.0); NEUTROPHILS % (AUTO) 80.7 % (45.0-75.0); PLATELET COUNT 261 K/UL (150-450); RED BLOOD COUNT 3.66 M/UL (4.20-5.40); RED CELL DISTRIBUTION WIDTH 15.1 % (11.6-14.8); WHITE BLOOD COUNT 9.6 K/UL (4.8-10.8)
[2017-10-05 07:11] LABS: ANION GAP 4 mmol/L (5-15); BLOOD UREA NITROGEN 12 mg/dL (7-18); CALCIUM 8.1 MG/DL (8.5-10.1); CARBON DIOXIDE 32 MMOL/L (21-32); CHLORIDE 104 MMOL/L (98-107); CREATININE 1.1 MG/DL (0.55-1.30); POTASSIUM 3.7 MMOL/L (3.5-5.1); SODIUM 140 MMOL/L (136-145)
[2017-10-05 08:00] VITALS: BP 155/65
--- NOTE | 2017-10-05 09:03 | Diagnostic Imaging Report ---
Indication: Cough Technique: One view of the chest Comparison: none Findings: Dilated esophagus, left-sided pleural effusion, left basilar atelectasis persists. There is interim clearing of previously demonstrated right basilar opacity. Right supraclavicular surgical clips again demonstrated Impression: Over 3 days, interim clearing of previously demonstrated right basilar infiltrates Persistent left basilar pleural fluid and atelectasis
[2017-10-05] MEDS: Docusate 100mg/10ml Liq ORAL SCH ×2 (09:55→17:28)
[2017-10-05] MEDS: Bactrim-DS 1 tab ORAL SCH ×2 (09:55→17:28)
[2017-10-05] MEDS: Enoxaparin 30mg Inj SUBQ SCH (09:57)
--- NOTE | 2017-10-05 10:04 | General Progress Note ---
Assessment/Plan Assessment/Plan #. Leukocytosis, likely secondary to infection. --> Ongoing antibiotics. --> Worsened from yesterday. --> Monitor closely. Trend cbc daily. #. Chronic obstructive pulmonary disease exacerbation. --> To be seen by Pulmonary team. We started her on Keflex. --> Closely monitor. Pulmonary treatments have been started. #. Pneumonia history, status post treatment in the past with antibiotics. --> I have consulted ID Service as well. #. Tremor, shaking, unsure if this was a seizure episode and I have consulted the patient with Neurology, Dr. Mendes. --> No seizures today #. Dementia. Closely monitor. Neurology Service to see if the patient needs to start any medications. --> CT scan of the head did not show any acute intracranial pathology. #. Left pleural effusion, to be seen again by Dr. Gandhi. Subjective Date patient seen: Oct 04, 2017 Constitutional: Denies: no symptoms, chills, diaphoresis, fever, malaise, weakness, other HEENT: Denies: no symptoms, eye pain, blurred vision, tearing, double vision, ear pain, ear discharge, nose pain, nose congestion, throat pain, throat swelling, mouth pain, mouth swelling, other Cardiovascular: Denies: no symptoms, chest pain, edema, irregular heart rate, lightheadedness, palpitations, syncope, other Respiratory: Denies: no symptoms, cough, orthopnea, shortness of breath, SOB with excertion, SOB at rest, sputum, stridor, wheezing, other Gastrointestinal/Abdominal: Denies: no symptoms, abdomen distended, abdominal pain, black stools, tarry stools, blood in stool, constipated, diarrhea, difficulty swallowing, nausea, poor appetite, poor fluid intake, rectal bleeding , vomiting, other Genitourinary: Denies: no symptoms, burning, discharge, frequency, flank pain, hematuria, incontinence, pain, urgency, other Neurologic/Psychiatric: Denies: no symptoms, anxiety, depressed, emotional problems, headache, numbness, paresthesia, pre-existing deficit, seizure, tingling, tremors, weakness, other Hematologic/Lymphatic: Reports: anemia Allergies: Coded Allergies: ACETAMINOPHEN (Verified Allergy, Unknown, 09/26/17) CODEINE (Verified Allergy, Unknown, 09/26/17) HYDROCODONE (Verified Allergy, Unknown, 09/26/17) MORPHINE (Verified Allergy, Unknown, 09/26/17) Uncoded Allergies: tartrazine (Allergy, Unknown, 09/26/17) Subjective Wbc count remains elevated. Some sob and tremors. Objective Last 24 Hour Vital Signs Date Time Temp Pulse Resp B/P (MAP) Pulse Ox O2 Delivery O2 Flow Rate FiO2 10/04/17 20:02 99 Room Air 10/04/17 20:02 97.9 71 20 145/89 99 Room Air 97.9 10/04/17 19:26 Nasal Cannula 3.0 32 10/04/17 19:26 97 Nasal Cannula 3.0 32 10/04/17 16:00 97.3 79 20 136/76 98 Nasal Cannula 3.0 97.3 10/04/17 12:00 96.8 74 22 135/70 99 96.8 Intake and Output 10/04/17 10/05/17 19:00 07:00 Intake Total 450 ml 360 ml Balance 450 ml 360 ml Intake Oral 120 ml IV Total 330 ml 360 ml # Voids 2 3 # Bowel Movements 1 Laboratory Tests 10/05/17 05:40: White Blood Count 9.6, Red Blood Count 3.66L, Hemoglobin 11.8L, Hematocrit 35.5L , Mean Corpuscular Volume 97, Mean Corpuscular Hemoglobin 32.1H, Mean Corpuscular Hemoglobin Concent 33.1, Red Cell Distribution Width 15.1H, Platelet Count 261, Mean Platelet Volume 7.7, Neutrophils (%) (Auto) 80.7H, Lymphocytes (%) (Auto) 9.9L, Monocytes (%) (Auto) 5.7, Eosinophils (%) (Auto) 3.1H, Basophils (%) (Auto) 0.6, Sodium Level 140, Potassium Level 3.7, Chloride Level 104, Carbon Dioxide Level 32, Anion Gap 4L, Blood Urea Nitrogen 12, Creatinine 1.1, Estimat Glomerular Filtration Rate , Glucose Level 86, Calcium Level 8.1L Height (Feet): 5 Height (Inches): 2.00 Weight (Pounds): 157 General Appearance: confused Respiratory/Chest: decreased breath sounds Abdomen: soft Oleg Brown Oct 05, 2017 10:04
--- NOTE | 2017-10-05 11:24 | GI Progress Note ---
Assessment/Plan Problems: (1) Dementia ICD Codes: F03.90 - Unspecified dementia without behavioral disturbance SNOMED: 32776911 (2) Achalasia of esophagus ICD Codes: K22.0 - Achalasia of cardia SNOMED: 33133962 (3) Dyspnea ICD Codes: R06.00 - Dyspnea, unspecified SNOMED: 631950793 Status: stable Status Narrative Discussed with Dr. Ledesma. 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 I agree with the above findings, impression and plan. (Patient seen earlier today. Signature stamp does not reflect patient encounter time.). - Kelsey Ledesma MD Subjective Subjective limited Objective Last 24 Hour Vital Signs Date Time Temp Pulse Resp B/P (MAP) Pulse Ox O2 Delivery O2 Flow Rate FiO2 10/05/17 08:00 98.3 90 21 155/65 95 Room Air 98.3 10/04/17 20:02 99 Room Air 10/04/17 20:02 97.9 71 20 145/89 99 Room Air 97.9 10/04/17 19:26 Nasal Cannula 3.0 32 10/04/17 19:26 97 Nasal Cannula 3.0 32 10/04/17 16:00 97.3 79 20 136/76 98 Nasal Cannula 3.0 97.3 10/04/17 12:00 96.8 74 22 135/70 99 96.8 Intake and Output 10/04/17 10/05/17 19:00 07:00 Intake Total 450 ml 360 ml Balance 450 ml 360 ml Intake Oral 120 ml IV Total 330 ml 360 ml # Voids 2 3 # Bowel Movements 1 Laboratory Tests Test 10/05/17 05:40 White Blood Count 9.6 K/UL (4.8-10.8) Red Blood Count 3.66 M/UL (4.20-5.40) L Hemoglobin 11.8 G/DL (12.0-16.0) L Hematocrit 35.5 % (37.0-47.0) L Mean Corpuscular Volume 97 FL (80-99) Mean Corpuscular Hemoglobin 32.1 PG (27.0-31.0) H Mean Corpuscular Hemoglobin Concent 33.1 G/DL (32.0-36.0) Red Cell Distribution Width 15.1 % (11.6-14.8) H Platelet Count 261 K/UL (150-450) Mean Platelet Volume 7.7 FL (6.5-10.1) Neutrophils (%) (Auto) 80.7 % (45.0-75.0) H Lymphocytes (%) (Auto) 9.9 % (20.0-45.0) L Monocytes (%) (Auto) 5.7 % (1.0-10.0) Eosinophils (%) (Auto) 3.1 % (0.0-3.0) H Basophils (%) (Auto) 0.6 % (0.0-2.0) Sodium Level 140 MMOL/L (136-145) Potassium Level 3.7 MMOL/L (3.5-5.1) Chloride Level 104 MMOL/L (98-107) Carbon Dioxide Level 32 MMOL/L (21-32) Anion Gap 4 mmol/L (5-15) L Blood Urea Nitrogen 12 mg/dL (7-18) Creatinine 1.1 MG/DL (0.55-1.30) Estimat Glomerular Filtration Rate mL/min (>60) Glucose Level 86 MG/DL (74-106) Calcium Level 8.1 MG/DL (8.5-10.1) L Height (Feet): 5 Height (Inches): 2.00 Weight (Pounds): 157 General Appearance: WD/WN, no apparent distress, alert Cardiovascular: normal rate Respiratory/Chest: normal breath sounds, no respiratory distress Abdominal Exam: normal bowel sounds, non tender, soft Extremities: normal range of motion, non-tender Mary Anne Williamson N.PRuddy Oct 05, 2017 11:24 RADHA LEDESMA Oct 13, 2017 08:28
[2017-10-05 12:00] VITALS: BP 152/69
[2017-10-05 16:00] VITALS: BP 142/108
[2017-10-05 19:25] VITALS: BP 167/91
[2017-10-05] MEDS: Miralax 17gm pkt ORAL SCH (20:40)
--- NOTE | 2017-10-05 21:50 | General Progress Note ---
Assessment/Plan Problem List: (1) Parotiditis ICD Codes: K11.20 - Sialoadenitis, unspecified SNOMED: 53328209 (2) Pneumonia ICD Codes: J18.9 - Pneumonia, unspecified organism SNOMED: 978758681 (3) Dementia ICD Codes: F03.90 - Unspecified dementia without behavioral disturbance SNOMED: 65933267 (4) Achalasia of esophagus ICD Codes: K22.0 - Achalasia of cardia SNOMED: 83523394 (5) Dyspnea ICD Codes: R06.00 - Dyspnea, unspecified SNOMED: 836594941 Status: progressing Assessment/Plan pna vs atelectasis advenced dementia spoke at lenth w son at bedside distended abdomen and is nica soft diet per gi Subjective ROS Limited/Unobtainable: Yes Allergies: Coded Allergies: ACETAMINOPHEN (Verified Allergy, Unknown, 09/26/17) CODEINE (Verified Allergy, Unknown, 09/26/17) HYDROCODONE (Verified Allergy, Unknown, 09/26/17) MORPHINE (Verified Allergy, Unknown, 09/26/17) Uncoded Allergies: tartrazine (Allergy, Unknown, 09/26/17) Objective Last 24 Hour Vital Signs Date Time Temp Pulse Resp B/P (MAP) Pulse Ox O2 Delivery O2 Flow Rate FiO2 10/05/17 19:25 98.1 82 20 167/91 95 Room Air 98.1 10/05/17 17:28 142/108 10/05/17 16:00 98.1 83 20 142/108 95 98.1 10/05/17 12:00 97.7 98 20 152/69 95 Room Air 97.7 10/05/17 08:00 98.3 90 21 155/65 95 Room Air 98.3 Intake and Output 10/04/17 10/05/17 19:00 07:00 Intake Total 450 ml 360 ml Balance 450 ml 360 ml Intake Oral 120 ml IV Total 330 ml 360 ml # Voids 2 3 # Bowel Movements 1 Laboratory Tests 10/05/17 05:40: White Blood Count 9.6, Red Blood Count 3.66L, Hemoglobin 11.8L, Hematocrit 35.5L , Mean Corpuscular Volume 97, Mean Corpuscular Hemoglobin 32.1H, Mean Corpuscular Hemoglobin Concent 33.1, Red Cell Distribution Width 15.1H, Platelet Count 261, Mean Platelet Volume 7.7, Neutrophils (%) (Auto) 80.7H, Lymphocytes (%) (Auto) 9.9L, Monocytes (%) (Auto) 5.7, Eosinophils (%) (Auto) 3.1H, Basophils (%) (Auto) 0.6, Sodium Level 140, Potassium Level 3.7, Chloride Level 104, Carbon Dioxide Level 32, Anion Gap 4L, Blood Urea Nitrogen 12, Creatinine 1.1, Estimat Glomerular Filtration Rate , Glucose Level 86, Calcium Level 8.1L Height (Feet): 5 Height (Inches): 2.00 Weight (Pounds): 157 Cardiovascular: normal rate Respiratory/Chest: lungs clear Cullen Briceno MD Oct 05, 2017 21:50
--- NOTE | 2017-10-05 22:01 | Pulmonology Progress Note ---
Assessment/Plan Problems: (1) Pneumonia (2) Parotiditis (3) Dementia Assessment/Plan getting better, smiling respiratory treatment check sputum po, abx check cutlrues chest pt titrate fio2 to sat of 92% dc planning d/w son extensively, Subjective ROS Limited/Unobtainable: No Constitutional: Reports: no symptoms HEENT: Repors: no symptoms Respiratory: Reports: no symptoms Allergies: Coded Allergies: ACETAMINOPHEN (Verified Allergy, Unknown, 09/26/17) CODEINE (Verified Allergy, Unknown, 09/26/17) HYDROCODONE (Verified Allergy, Unknown, 09/26/17) MORPHINE (Verified Allergy, Unknown, 09/26/17) Uncoded Allergies: tartrazine (Allergy, Unknown, 09/26/17) Objective Last 24 Hour Vital Signs Date Time Temp Pulse Resp B/P (MAP) Pulse Ox O2 Delivery O2 Flow Rate FiO2 10/05/17 19:25 98.1 82 20 167/91 95 Room Air 98.1 10/05/17 17:28 142/108 10/05/17 16:00 98.1 83 20 142/108 95 98.1 10/05/17 12:00 97.7 98 20 152/69 95 Room Air 97.7 10/05/17 08:00 98.3 90 21 155/65 95 Room Air 98.3 Intake and Output 10/04/17 10/05/17 19:00 07:00 Intake Total 450 ml 360 ml Balance 450 ml 360 ml Intake Oral 120 ml IV Total 330 ml 360 ml # Voids 2 3 # Bowel Movements 1 Objective General Appearance: WD/WN Lines, tubes and drains: peripheral HEENT: normocephalic, atraumatic Neck: non-tender, normal alignment Respiratory/Chest: chest wall non-tender, lungs rhonchi Cardiovascular/Chest: normal peripheral pulses, normal rate Abdomen: normal bowel sounds, non tender Genitourinary/Rectal: normal genital exam, normal rectal exam Extremities: normal range of motion, non-tender Skin Exam: normal pigmentation 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 Microbiology Date/Time Source Procedure Growth Status 10/03/17 04:40 Sputum Induced Gram Stain - Final Complete 10/03/17 04:40 Sputum Culture - Final Edna Albicans Usual Respiratory Stacey Complete Laboratory Tests 10/05/17 05:40: White Blood Count 9.6, Red Blood Count 3.66L, Hemoglobin 11.8L, Hematocrit 35.5L , Mean Corpuscular Volume 97, Mean Corpuscular Hemoglobin 32.1H, Mean Corpuscular Hemoglobin Concent 33.1, Red Cell Distribution Width 15.1H, Platelet Count 261, Mean Platelet Volume 7.7, Neutrophils (%) (Auto) 80.7H, Lymphocytes (%) (Auto) 9.9L, Monocytes (%) (Auto) 5.7, Eosinophils (%) (Auto) 3.1H, Basophils (%) (Auto) 0.6, Sodium Level 140, Potassium Level 3.7, Chloride Level 104, Carbon Dioxide Level 32, Anion Gap 4L, Blood Urea Nitrogen 12, Creatinine 1.1, Estimat Glomerular Filtration Rate , Glucose Level 86, Calcium Level 8.1L Current Medications Medications (Trade) Dose Ordered Sig/Rambo Route PRN Reason Start Time Stop Time Status Last Admin Dose Admin Amoxicillin/ Clavulanate Potassium (Augmentin) 500 mg EVERY 12 HOURS ORAL 10/03/17 21:00 10/10/17 20:59 10/05/17 20:40 Clonidine HCl (Catapres Tab) 0.1 mg Q6HR PRN ORAL For High Blood Pressure 10/03/17 21:45 11/02/17 21:44 10/05/17 17:28 Dextrose (Dextrose 50%) STAT PRN IV Hypoglycemia 10/02/17 14:30 10/28/17 14:29 Docusate Sodium (Colace) 100 mg BID ORAL 10/02/17 09:00 10/31/17 08:59 10/05/17 17:28 Enoxaparin Sodium (Lovenox) 30 mg Q24H SUBQ 10/02/17 09:00 10/27/17 08:59 10/05/17 09:57 Famotidine (Pepcid) 20 mg BID ORAL 10/02/17 09:00 10/27/17 08:59 10/05/17 17:28 Lorazepam (Ativan 2mg/ml 1ml) 1 mg Q4H PRN IV For Anxiety 10/02/17 13:00 10/09/17 12:59 Mineral Oil (Mineral Oil) 30 ml DAILY PRN ORAL Constipation 10/03/17 14:15 11/02/17 14:14 10/03/17 23:07 Nitroglycerin (Ntg) 0.4 mg Q5M PRN SL Prn Chest Pain 10/01/17 20:30 10/27/17 04:44 Polyethylene Glycol (Miralax) 17 gm BEDTIME ORAL 10/02/17 21:00 11/01/17 20:59 10/05/17 20:40 Quetiapine Fumarate (SEROquel) 25 mg Q12HR ORAL 10/02/17 21:00 11/01/17 20:59 10/05/17 20:40 Sodium Chloride 1,000 ml @ 30 mls/hr Q24H IV 10/01/17 21:00 10/29/17 20:59 10/05/17 00:56 Trimethoprim/ Sulfamethoxazole (Bactrim-DS) 1 tab TWICE A DAY ORAL 10/03/17 21:00 10/10/17 20:59 10/05/17 17:28 Lobito Multani MD Oct 05, 2017 22:01
--- NOTE | 2017-10-05 22:41 | General Progress Note ---
Assessment/Plan Problem List: (1) mdd Assessment & Plan: mdd dementia with behavioral dist encephalopathy -seroquel 25 mg bid -ativan prn Assessment/Plan mdd dementia with behavioral dist encephalopathy -seroquel 25 mg bid -ativan prn -dc sitter Subjective Date patient seen: Oct 05, 2017 Neurologic/Psychiatric: Reports: anxiety, depressed, emotional problems Allergies: Coded Allergies: ACETAMINOPHEN (Verified Allergy, Unknown, 09/26/17) CODEINE (Verified Allergy, Unknown, 09/26/17) HYDROCODONE (Verified Allergy, Unknown, 09/26/17) MORPHINE (Verified Allergy, Unknown, 09/26/17) Uncoded Allergies: tartrazine (Allergy, Unknown, 09/26/17) Objective Last 24 Hour Vital Signs Date Time Temp Pulse Resp B/P (MAP) Pulse Ox O2 Delivery O2 Flow Rate FiO2 10/05/17 19:25 98.1 82 20 167/91 95 Room Air 98.1 10/05/17 19:25 95 Room Air 10/05/17 17:28 142/108 10/05/17 16:00 98.1 83 20 142/108 95 98.1 10/05/17 12:00 97.7 98 20 152/69 95 Room Air 97.7 10/05/17 08:00 98.3 90 21 155/65 95 Room Air 98.3 Intake and Output 10/04/17 10/05/17 19:00 07:00 Intake Total 450 ml 360 ml Balance 450 ml 360 ml Intake Oral 120 ml IV Total 330 ml 360 ml # Voids 2 3 # Bowel Movements 1 Laboratory Tests 10/05/17 05:40: White Blood Count 9.6, Red Blood Count 3.66L, Hemoglobin 11.8L, Hematocrit 35.5L , Mean Corpuscular Volume 97, Mean Corpuscular Hemoglobin 32.1H, Mean Corpuscular Hemoglobin Concent 33.1, Red Cell Distribution Width 15.1H, Platelet Count 261, Mean Platelet Volume 7.7, Neutrophils (%) (Auto) 80.7H, Lymphocytes (%) (Auto) 9.9L, Monocytes (%) (Auto) 5.7, Eosinophils (%) (Auto) 3.1H, Basophils (%) (Auto) 0.6, Sodium Level 140, Potassium Level 3.7, Chloride Level 104, Carbon Dioxide Level 32, Anion Gap 4L, Blood Urea Nitrogen 12, Creatinine 1.1, Estimat Glomerular Filtration Rate , Glucose Level 86, Calcium Level 8.1L Height (Feet): 5 Height (Inches): 2.00 Weight (Pounds): 157 General Appearance: no apparent distress, alert, confused, agitated Shane Garcia M.D. Oct 05, 2017 22:41
[2017-10-06] VITALS: BP 151/80
[2017-10-06 03:47] VITALS: BP 169/82
[2017-10-06 05:28] VITALS: BP 146/84
[2017-10-06 06:40] LABS: BASOPHILS % (AUTO) 0.7 % (0.0-2.0); EOSINOPHILS % (AUTO) 4.5 % (0.0-3.0); HEMATOCRIT 35.6 % (37.0-47.0); HEMOGLOBIN 11.9 G/DL (12.0-16.0); LYMPHOCYTES % (AUTO) 11.4 % (20.0-45.0); MEAN CORPUSCULAR VOLUME 97 FL (80-99); MONOCYTES % (AUTO) 6.5 % (1.0-10.0); NEUTROPHILS % (AUTO) 76.9 % (45.0-75.0); PLATELET COUNT 252 K/UL (150-450); RED BLOOD COUNT 3.67 M/UL (4.20-5.40); RED CELL DISTRIBUTION WIDTH 14.8 % (11.6-14.8); WHITE BLOOD COUNT 8.4 K/UL (4.8-10.8)
[2017-10-06 06:51] LABS: ANION GAP 3 mmol/L (5-15); BLOOD UREA NITROGEN 12 mg/dL (7-18); CALCIUM 8.1 MG/DL (8.5-10.1); CARBON DIOXIDE 33 MMOL/L (21-32); CHLORIDE 104 MMOL/L (98-107); CREATININE 1.2 MG/DL (0.55-1.30); POTASSIUM 3.9 MMOL/L (3.5-5.1); SODIUM 140 MMOL/L (136-145)
[2017-10-06 08:05] VITALS: BP 129/68
[2017-10-06] MEDS: Docusate 100mg/10ml Liq ORAL SCH (09:17)
[2017-10-06] MEDS: Bactrim-DS 1 tab ORAL SCH (09:18)
[2017-10-06] MEDS: Enoxaparin 30mg Inj SUBQ SCH (09:19)
[2017-10-06 11:27] VITALS: BP 148/90
--- NOTE | 2017-10-06 11:54 | General Progress Note ---
Assessment/Plan Assessment/Plan #. Leukocytosis, likely secondary to infection. --> Ongoing antibiotics. --> Resolved. --> Monitor closely. Trend cbc daily. #. Chronic obstructive pulmonary disease exacerbation. --> To be seen by Pulmonary team. We started her on Keflex. --> Closely monitor. Pulmonary treatments have been started. #. Pneumonia history, status post treatment in the past with antibiotics. --> I have consulted ID Service as well. #. Tremor, shaking, unsure if this was a seizure episode and I have consulted the patient with Neurology, Dr. Mendes. --> No seizures today #. Dementia. Closely monitor. Neurology Service to see if the patient needs to start any medications. --> CT scan of the head did not show any acute intracranial pathology. #. Left pleural effusion, to be seen again by Dr. Gandhi. Subjective Date patient seen: Oct 05, 2017 Constitutional: Denies: no symptoms, chills, diaphoresis, fever, malaise, weakness, other HEENT: Denies: no symptoms, eye pain, blurred vision, tearing, double vision, ear pain, ear discharge, nose pain, nose congestion, throat pain, throat swelling, mouth pain, mouth swelling, other Cardiovascular: Denies: no symptoms, chest pain, edema, irregular heart rate, lightheadedness, palpitations, syncope, other Respiratory: Denies: no symptoms, cough, orthopnea, shortness of breath, SOB with excertion, SOB at rest, sputum, stridor, wheezing, other Gastrointestinal/Abdominal: Denies: no symptoms, abdomen distended, abdominal pain, black stools, tarry stools, blood in stool, constipated, diarrhea, difficulty swallowing, nausea, poor appetite, poor fluid intake, rectal bleeding , vomiting, other Genitourinary: Denies: no symptoms, burning, discharge, frequency, flank pain, hematuria, incontinence, pain, urgency, other Neurologic/Psychiatric: Denies: no symptoms, anxiety, depressed, emotional problems, headache, numbness, paresthesia, pre-existing deficit, seizure, tingling, tremors, weakness, other Hematologic/Lymphatic: Reports: anemia Allergies: Coded Allergies: ACETAMINOPHEN (Verified Allergy, Unknown, 09/26/17) CODEINE (Verified Allergy, Unknown, 09/26/17) HYDROCODONE (Verified Allergy, Unknown, 09/26/17) MORPHINE (Verified Allergy, Unknown, 09/26/17) Uncoded Allergies: tartrazine (Allergy, Unknown, 09/26/17) Subjective Wbc count improved. Some sob. Confused. Objective Last 24 Hour Vital Signs Date Time Temp Pulse Resp B/P (MAP) Pulse Ox O2 Delivery O2 Flow Rate FiO2 10/06/17 11:27 97.8 72 20 148/90 96 97.8 10/06/17 09:53 Nasal Cannula 3.0 32 10/06/17 09:53 96 Nasal Cannula 3.0 32 10/06/17 08:05 98.3 67 20 129/68 96 98.3 10/06/17 05:28 146/84 10/06/17 03:47 96 Room Air 10/06/17 03:47 98.2 86 20 169/82 96 Room Air 98.2 10/06/17 00:12 93 Room Air 10/06/17 00:00 97.7 71 20 151/80 93 Room Air 97.7 10/05/17 19:25 98.1 82 20 167/91 95 Room Air 98.1 10/05/17 19:25 95 Room Air 10/05/17 17:28 142/108 10/05/17 16:00 98.1 83 20 142/108 95 98.1 10/05/17 12:00 97.7 98 20 152/69 95 Room Air 97.7 Intake and Output 10/05/17 10/06/17 19:00 07:00 Intake Total 90 ml Output Total 1 ml Balance 90 ml -1 ml Intake Oral 90 ml Stool Total 1 ml # Voids 2 3 # Bowel Movements 1 Laboratory Tests 10/06/17 04:50: White Blood Count 8.4, Red Blood Count 3.67L, Hemoglobin 11.9L, Hematocrit 35.6L , Mean Corpuscular Volume 97, Mean Corpuscular Hemoglobin 32.4H, Mean Corpuscular Hemoglobin Concent 33.4, Red Cell Distribution Width 14.8, Platelet Count 252, Mean Platelet Volume 7.4, Neutrophils (%) (Auto) 76.9H, Lymphocytes ( %) (Auto) 11.4L, Monocytes (%) (Auto) 6.5, Eosinophils (%) (Auto) 4.5H, Basophils (%) (Auto) 0.7, Sodium Level 140, Potassium Level 3.9, Chloride Level 104, Carbon Dioxide Level 33H, Anion Gap 3L, Blood Urea Nitrogen 12, Creatinine 1.2, Estimat Glomerular Filtration Rate , Glucose Level 83, Calcium Level 8.1L Height (Feet): 5 Height (Inches): 2.00 Weight (Pounds): 157 General Appearance: no apparent distress, confused Respiratory/Chest: decreased breath sounds Abdomen: soft Oleg Brown MD Oct 06, 2017 11:54
--- NOTE | 2017-10-06 12:50 | GI Progress Note ---
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 Ledesma. 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 I agree with the above findings, impression and plan. (Patient seen earlier today. Signature stamp does not reflect patient encounter time.). - Kelsey Ledesma MD Subjective Subjective limited Objective Last 24 Hour Vital Signs Date Time Temp Pulse Resp B/P (MAP) Pulse Ox O2 Delivery O2 Flow Rate FiO2 10/06/17 11:27 97.8 72 20 148/90 96 97.8 10/06/17 09:53 Nasal Cannula 3.0 32 10/06/17 09:53 96 Nasal Cannula 3.0 32 10/06/17 08:05 98.3 67 20 129/68 96 98.3 10/06/17 05:28 146/84 10/06/17 03:47 96 Room Air 10/06/17 03:47 98.2 86 20 169/82 96 Room Air 98.2 10/06/17 00:12 93 Room Air 10/06/17 00:00 97.7 71 20 151/80 93 Room Air 97.7 10/05/17 19:25 98.1 82 20 167/91 95 Room Air 98.1 10/05/17 19:25 95 Room Air 10/05/17 17:28 142/108 10/05/17 16:00 98.1 83 20 142/108 95 98.1 Intake and Output 10/05/17 10/06/17 19:00 07:00 Intake Total 90 ml Output Total 1 ml Balance 90 ml -1 ml Intake Oral 90 ml Stool Total 1 ml # Voids 2 3 # Bowel Movements 1 Laboratory Tests Test 10/06/17 04:50 White Blood Count 8.4 K/UL (4.8-10.8) Red Blood Count 3.67 M/UL (4.20-5.40) L Hemoglobin 11.9 G/DL (12.0-16.0) L Hematocrit 35.6 % (37.0-47.0) L Mean Corpuscular Volume 97 FL (80-99) Mean Corpuscular Hemoglobin 32.4 PG (27.0-31.0) H Mean Corpuscular Hemoglobin Concent 33.4 G/DL (32.0-36.0) Red Cell Distribution Width 14.8 % (11.6-14.8) Platelet Count 252 K/UL (150-450) Mean Platelet Volume 7.4 FL (6.5-10.1) Neutrophils (%) (Auto) 76.9 % (45.0-75.0) H Lymphocytes (%) (Auto) 11.4 % (20.0-45.0) L Monocytes (%) (Auto) 6.5 % (1.0-10.0) Eosinophils (%) (Auto) 4.5 % (0.0-3.0) H Basophils (%) (Auto) 0.7 % (0.0-2.0) Sodium Level 140 MMOL/L (136-145) Potassium Level 3.9 MMOL/L (3.5-5.1) Chloride Level 104 MMOL/L (98-107) Carbon Dioxide Level 33 MMOL/L (21-32) H Anion Gap 3 mmol/L (5-15) L Blood Urea Nitrogen 12 mg/dL (7-18) Creatinine 1.2 MG/DL (0.55-1.30) Estimat Glomerular Filtration Rate mL/min (>60) Glucose Level 83 MG/DL (74-106) Calcium Level 8.1 MG/DL (8.5-10.1) L Height (Feet): 5 Height (Inches): 2.00 Weight (Pounds): 157 General Appearance: WD/WN, no apparent distress, alert Cardiovascular: normal rate Respiratory/Chest: normal breath sounds, no respiratory distress Abdominal Exam: normal bowel sounds, non tender, soft Extremities: normal range of motion, non-tender Mary Anne Williamson N.P. Oct 06, 2017 12:50 RADHA LEDESMA Oct 13, 2017 09:04
--- NOTE | 2017-10-06 14:02 | Wound Nurse Progress Note ---
Wound RN Progress Note Wound Consult Reassessment.- no further deterioration present skin remains intact treatment effective. #1 Right trochanter DTI pressure ulcer-noted good progress, skin remains intact , resolved. continue to monitor for any changes. 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 #3 Left buttock stage I pressure ulcer-noted good progress skin remains intact remains as stage 1, noted interactive media designer in color, continue to offload area #4 Sacrococcygeal SDTI pressure ulcer- noted skin remains intact, interactive media designer in color, remains as sdti , continue to reposition offload, monitor. Recommendation -Local wound care per protocol -Keep clean and dry -Turn and reposition -Offload both heels -Heel protector on both heels -Optimize nutrition -Low air loss mattress -Assess and f/u accordingly for any changes ZELALEM COLON Oct 06, 2017 14:02
--- NOTE | 2017-10-06 14:43 | Infectious Diseases Prog Note ---
Assessment/Plan Assessment/Plan ASSESSMENT: The patient is an 87-year-old female with, Leukocytosis, ( s/p steroids 10/01 ) , recurrent- resolved Left parotitis resolving Facial CT suggestive of left parotitis ?Developing PNA vs atelectasis -CXR 10/05: Over 3 days, interim clearing of previously demonstrated right basilar infiltrates/ Persistent left basilar pleural fluid and atelectasis -CXR 10/02: Increasing right basilar atelectasis and possible consolidation.Stable left basilar pleural and parenchymal disease, over [address] of the chest, no evidence of PE or infiltrate -sp cx resp tianna, c. albicans Afebrile. Rapid influenza A/B negative. CRP 1.8 CHF 09/29 SP EGD : Achalasia of esophagus ANDREI improved Dementia. History of pulmonary emboli History of back pain Depression PLAN: Continue PO Bactrim DS 1 tabd bid and PO augmentin 500/125mg bid abx d# 10 for parotitis and possible pNA; ok to discharge from ID perspective. -monitor Cr, electrolytes -10/03 SP IV Vanco and LEvaquin #7 Monitor CBC. Monitor BMP. Monitor chest x-ray. Subjective Allergies: Coded Allergies: ACETAMINOPHEN (Verified Allergy, Unknown, 09/26/17) CODEINE (Verified Allergy, Unknown, 09/26/17) HYDROCODONE (Verified Allergy, Unknown, 09/26/17) MORPHINE (Verified Allergy, Unknown, 09/26/17) Uncoded Allergies: tartrazine (Allergy, Unknown, 09/26/17) Subjective afebrile recurrent leukocytosis cx NTD Objective Vital Signs Last 24 Hour Vital Signs Date Time Temp Pulse Resp B/P (MAP) Pulse Ox O2 Delivery O2 Flow Rate FiO2 10/06/17 11:27 97.8 72 20 148/90 96 97.8 10/06/17 09:53 Nasal Cannula 3.0 32 10/06/17 09:53 96 Nasal Cannula 3.0 32 10/06/17 08:05 98.3 67 20 129/68 96 98.3 10/06/17 05:28 146/84 10/06/17 03:47 96 Room Air 10/06/17 03:47 98.2 86 20 169/82 96 Room Air 98.2 10/06/17 00:12 93 Room Air 10/06/17 00:00 97.7 71 20 151/80 93 Room Air 97.7 10/05/17 19:25 98.1 82 20 167/91 95 Room Air 98.1 10/05/17 19:25 95 Room Air 10/05/17 17:28 142/108 10/05/17 16:00 98.1 83 20 142/108 95 98.1 Height (Feet): 5 Height (Inches): 2.00 Weight (Pounds): 157 Objective General Appearance: WD/WN Lines, tubes and drains: peripheral HEENT: normocephalic, atraumatic; L parotid swelling, erythema and induration much improved, less TTP Neck: non-tender, normal alignment Respiratory/Chest: chest wall non-tender, lungs rhonchi Cardiovascular/Chest: normal peripheral pulses, normal rate Abdomen: normal bowel sounds, non tender Genitourinary/Rectal: normal genital exam, normal rectal exam Extremities: normal range of motion, non-tender Skin Exam: normal pigmentation 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5 % (0.0-3.0) H Basophils (%) (Auto) 0.7 % (0.0-2.0) Sodium Level 140 MMOL/L (136-145) Potassium Level 3.9 MMOL/L (3.5-5.1) Chloride Level 104 MMOL/L (98-107) Carbon Dioxide Level 33 MMOL/L (21-32) H Anion Gap 3 mmol/L (5-15) L Blood Urea Nitrogen 12 mg/dL (7-18) Creatinine 1.2 MG/DL (0.55-1.30) Estimat Glomerular Filtration Rate mL/min (>60) Glucose Level 83 MG/DL (74-106) Calcium Level 8.1 MG/DL (8.5-10.1) L Current Medications Medications (Trade) Dose Ordered Sig/Rambo Route PRN Reason Start Time Stop Time Status Last Admin Dose Admin Amoxicillin/ Clavulanate Potassium (Augmentin) 500 mg EVERY 12 HOURS ORAL 10/03/17 21:00 10/10/17 20:59 10/06/17 09:18 Clonidine HCl (Catapres Tab) 0.1 mg Q6HR PRN ORAL For High Blood Pressure 10/03/17 21:45 11/02/17 21:44 10/05/17 17:28 Dextrose (Dextrose 50%) STAT PRN IV Hypoglycemia 10/02/17 14:30 10/28/17 14:29 Docusate Sodium (Colace) 100 mg BID ORAL 10/02/17 09:00 10/31/17 08:59 10/06/17 09:17 Enoxaparin Sodium (Lovenox) 30 mg Q24H SUBQ 10/02/17 09:00 10/27/17 08:59 10/06/17 09:19 Famotidine (Pepcid) 20 mg BID ORAL 10/02/17 09:00 10/27/17 08:59 10/06/17 09:18 Lorazepam (Ativan 2mg/ml 1ml) 1 mg Q4H PRN IV For Anxiety 10/02/17 13:00 10/09/17 12:59 Mineral Oil (Mineral Oil) 30 ml DAILY PRN ORAL Constipation 10/03/17 14:15 11/02/17 14:14 10/03/17 23:07 Nitroglycerin (Ntg) 0.4 mg Q5M PRN SL Prn Chest Pain 10/01/17 20:30 10/27/17 04:44 Polyethylene Glycol (Miralax) 17 gm BEDTIME ORAL 10/02/17 21:00 11/01/17 20:59 10/05/17 20:40 Quetiapine Fumarate (SEROquel) 25 mg Q12HR ORAL 10/02/17 21:00 11/01/17 20:59 10/06/17 09:17 Sodium Chloride 1,000 ml @ 30 mls/hr Q24H IV 10/01/17 21:00 10/29/17 20:59 10/05/17 00:56 Trimethoprim/ Sulfamethoxazole (Bactrim-DS) 1 tab TWICE A DAY ORAL 10/03/17 21:00 10/10/17 20:59 10/06/17 09:18 Ngoc Chery M.D. Oct 06, 2017 14:43
[2017-10-06 16:00] VITALS: BP 136/88
--- NOTE | 2017-10-06 16:15 | Pulmonology Progress Note ---
Assessment/Plan Problems: (1) Pneumonia (2) Parotiditis (3) Dementia Assessment/Plan getting better, smiling respiratory treatment check sputum po, abx check cutlrues chest pt titrate fio2 to sat of 92% dc planning d/w son extensively, pt is being discharged to [facility] Subjective ROS Limited/Unobtainable: No Allergies: Coded Allergies: ACETAMINOPHEN (Verified Allergy, Unknown, 09/26/17) CODEINE (Verified Allergy, Unknown, 09/26/17) HYDROCODONE (Verified Allergy, Unknown, 09/26/17) MORPHINE (Verified Allergy, Unknown, 09/26/17) Uncoded Allergies: tartrazine (Allergy, Unknown, 09/26/17) Objective Last 24 Hour Vital Signs Date Time Temp Pulse Resp B/P (MAP) Pulse Ox O2 Delivery O2 Flow Rate FiO2 10/06/17 16:00 97.9 77 18 136/88 96 97.9 10/06/17 11:27 97.8 72 20 148/90 96 97.8 10/06/17 09:53 Nasal Cannula 3.0 32 10/06/17 09:53 96 Nasal Cannula 3.0 32 10/06/17 08:05 98.3 67 20 129/68 96 98.3 10/06/17 05:28 146/84 10/06/17 03:47 96 Room Air 10/06/17 03:47 98.2 86 20 169/82 96 Room Air 98.2 10/06/17 00:12 93 Room Air 10/06/17 00:00 97.7 71 20 151/80 93 Room Air 97.7 10/05/17 19:25 98.1 82 20 167/91 95 Room Air 98.1 10/05/17 19:25 95 Room Air 10/05/17 17:28 142/108 Intake and Output 10/05/17 10/06/17 19:00 07:00 Intake Total 90 ml Output Total 1 ml Balance 90 ml -1 ml Intake Oral 90 ml Stool Total 1 ml # Voids 2 3 # Bowel Movements 1 Objective General Appearance: WD/WN Lines, tubes and drains: peripheral HEENT: normocephalic, atraumatic Neck: non-tender, normal alignment Respiratory/Chest: chest wall non-tender, lungs rhonchi Cardiovascular/Chest: normal peripheral pulses, normal rate Abdomen: normal bowel sounds, non tender Genitourinary/Rectal: normal genital exam, normal rectal exam Extremities: normal range of motion, non-tender Skin Exam: normal pigmentation 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 Laboratory Tests 10/06/17 04:50: White Blood Count 8.4, Red Blood Count 3.67L, Hemoglobin 11.9L, Hematocrit 35.6L , Mean Corpuscular Volume 97, Mean Corpuscular Hemoglobin 32.4H, Mean Corpuscular Hemoglobin Concent 33.4, Red Cell Distribution Width 14.8, Platelet Count 252, Mean Platelet Volume 7.4, Neutrophils (%) (Auto) 76.9H, Lymphocytes ( %) (Auto) 11.4L, Monocytes (%) (Auto) 6.5, Eosinophils (%) (Auto) 4.5H, Basophils (%) (Auto) 0.7, Sodium Level 140, Potassium Level 3.9, Chloride Level 104, Carbon Dioxide Level 33H, Anion Gap 3L, Blood Urea Nitrogen 12, Creatinine 1.2, Estimat Glomerular Filtration Rate , Glucose Level 83, Calcium Level 8.1L Current Medications Medications (Trade) Dose Ordered Sig/Rambo Route PRN Reason Start Time Stop Time Status Last Admin Dose Admin Amoxicillin/ Clavulanate Potassium (Augmentin) 500 mg EVERY 12 HOURS ORAL 10/03/17 21:00 10/10/17 20:59 10/06/17 09:18 Clonidine HCl (Catapres Tab) 0.1 mg Q6HR PRN ORAL For High Blood Pressure 10/03/17 21:45 11/02/17 21:44 10/05/17 17:28 Dextrose (Dextrose 50%) STAT PRN IV Hypoglycemia 10/02/17 14:30 10/28/17 14:29 Docusate Sodium (Colace) 100 mg BID ORAL 10/02/17 09:00 10/31/17 08:59 10/06/17 09:17 Enoxaparin Sodium (Lovenox) 30 mg Q24H SUBQ 10/02/17 09:00 10/27/17 08:59 10/06/17 09:19 Famotidine (Pepcid) 20 mg BID ORAL 10/02/17 09:00 10/27/17 08:59 10/06/17 09:18 Lorazepam (Ativan 2mg/ml 1ml) 1 mg Q4H PRN IV For Anxiety 10/02/17 13:00 10/09/17 12:59 Mineral Oil (Mineral Oil) 30 ml DAILY PRN ORAL Constipation 10/03/17 14:15 11/02/17 14:14 10/03/17 23:07 Nitroglycerin (Ntg) 0.4 mg Q5M PRN SL Prn Chest Pain 10/01/17 20:30 10/27/17 04:44 Polyethylene Glycol (Miralax) 17 gm BEDTIME ORAL 10/02/17 21:00 11/01/17 20:59 10/05/17 20:40 Quetiapine Fumarate (SEROquel) 25 mg Q12HR ORAL 10/02/17 21:00 11/01/17 20:59 10/06/17 09:17 Sodium Chloride 1,000 ml @ 30 mls/hr Q24H IV 10/01/17 21:00 10/29/17 20:59 10/05/17 00:56 Trimethoprim/ Sulfamethoxazole (Bactrim-DS) 1 tab TWICE A DAY ORAL 10/03/17 21:00 10/10/17 20:59 10/06/17 09:18 Lobito Multani MD Oct 06, 2017 16:15
[2017-10-06] MEDS ORDERED: BACTRIM-DS1 EA ORAL (16:54)
[2017-10-06] MEDS ORDERED: CLONIDINE0.1 MG GT (16:55)
[2017-10-06] MEDS ORDERED: AUGMENTIN 500-1 EACH ORAL (16:55)
[2017-10-06] MEDS ORDERED: COLACE100 MG/10 ORAL (16:57)
[2017-10-06] MEDS ORDERED: LOVENOX10 MG SUBQ (16:59)
[2017-10-06] MEDS ORDERED: FAMOTIDINE20 MG ORAL (17:00)
[2017-10-06] MEDS ORDERED: FAMOTIDINE20 MG/2 M1 (17:00)
[2017-10-06] MEDS ORDERED: ATIVAN2 MG/1 ML IV (17:01)
[2017-10-06] MEDS ORDERED: MINERAL OIL30 ML (17:02)
[2017-10-06] MEDS ORDERED: NITROGLYCERIN2.5 M1 SL (17:04)
[2017-10-06] MEDS ORDERED: MIRALAX17 G2 ORAL (17:05)
[2017-10-06] MEDS ORDERED: QUETIAPINE FUMA25 MG ORAL (17:06)
[2017-10-06] MEDS ORDERED: Tubing IV Secondary IV ONE (18:36)
--- NOTE | 2017-10-06 20:49 | General Progress Note ---
Assessment/Plan Problem List: (1) mdd Assessment & Plan: mdd dementia with behavioral dist encephalopathy -seroquel 25 mg bid -ativan prn Assessment/Plan mdd dementia with behavioral dist encephalopathy -seroquel 25 mg bid -ativan prn -dc sitter Subjective Neurologic/Psychiatric: Reports: anxiety, depressed, emotional problems Allergies: Coded Allergies: ACETAMINOPHEN (Verified Allergy, Unknown, 09/26/17) CODEINE (Verified Allergy, Unknown, 09/26/17) HYDROCODONE (Verified Allergy, Unknown, 09/26/17) MORPHINE (Verified Allergy, Unknown, 09/26/17) Uncoded Allergies: tartrazine (Allergy, Unknown, 09/26/17) Objective Last 24 Hour Vital Signs Date Time Temp Pulse Resp B/P (MAP) Pulse Ox O2 Delivery O2 Flow Rate FiO2 10/06/17 16:00 97.9 77 18 136/88 96 97.9 10/06/17 11:27 97.8 72 20 148/90 96 97.8 10/06/17 09:53 Nasal Cannula 3.0 32 10/06/17 09:53 96 Nasal Cannula 3.0 32 10/06/17 08:05 98.3 67 20 129/68 96 98.3 10/06/17 05:28 146/84 10/06/17 03:47 96 Room Air 10/06/17 03:47 98.2 86 20 169/82 96 Room Air 98.2 10/06/17 00:12 93 Room Air 10/06/17 00:00 97.7 71 20 151/80 93 Room Air 97.7 Intake and Output 10/05/17 10/06/17 19:00 07:00 Intake Total 90 ml Output Total 1 ml Balance 90 ml -1 ml Intake Oral 90 ml Stool Total 1 ml # Voids 2 3 # Bowel Movements 1 Laboratory Tests 10/06/17 04:50: White Blood Count 8.4, Red Blood Count 3.67L, Hemoglobin 11.9L, Hematocrit 35.6L , Mean Corpuscular Volume 97, Mean Corpuscular Hemoglobin 32.4H, Mean Corpuscular Hemoglobin Concent 33.4, Red Cell Distribution Width 14.8, Platelet Count 252, Mean Platelet Volume 7.4, Neutrophils (%) (Auto) 76.9H, Lymphocytes ( %) (Auto) 11.4L, Monocytes (%) (Auto) 6.5, Eosinophils (%) (Auto) 4.5H, Basophils (%) (Auto) 0.7, Sodium Level 140, Potassium Level 3.9, Chloride Level 104, Carbon Dioxide Level 33H, Anion Gap 3L, Blood Urea Nitrogen 12, Creatinine 1.2, Estimat Glomerular Filtration Rate , Glucose Level 83, Calcium Level 8.1L Height (Feet): 5 Height (Inches): 2.00 Weight (Pounds): 157 General Appearance: no apparent distress, alert, confused, agitated Shane Garcia M.D. Oct 06, 2017 20:49
--- NOTE | 2017-10-07 12:35 | General Progress Note ---
Assessment/Plan Assessment/Plan #. Leukocytosis, likely secondary to infection. --> Ongoing antibiotics. --> Resolved. --> Monitor closely. Trend cbc daily. #. Chronic obstructive pulmonary disease exacerbation. --> To be seen by Pulmonary team. We started her on Keflex. --> Closely monitor. Pulmonary treatments have been started. #. Pneumonia history, status post treatment in the past with antibiotics. --> I have consulted ID Service as well. #. Tremor, shaking, unsure if this was a seizure episode and I have consulted the patient with Neurology, Dr. Mendes. --> No seizures today #. Dementia. Closely monitor. Neurology Service to see if the patient needs to start any medications. --> CT scan of the head did not show any acute intracranial pathology. #. Left pleural effusion, to be seen again by Dr. Gandhi. DC planning. To Followup with rehab. Subjective Date patient seen: Oct 06, 2017 Constitutional: Denies: no symptoms, chills, diaphoresis, fever, malaise, weakness, other HEENT: Denies: no symptoms, eye pain, blurred vision, tearing, double vision, ear pain, ear discharge, nose pain, nose congestion, throat pain, throat swelling, mouth pain, mouth swelling, other Cardiovascular: Denies: no symptoms, chest pain, edema, irregular heart rate, lightheadedness, palpitations, syncope, other Respiratory: Denies: no symptoms, cough, orthopnea, shortness of breath, SOB with excertion, SOB at rest, sputum, stridor, wheezing, other Gastrointestinal/Abdominal: Denies: no symptoms, abdomen distended, abdominal pain, black stools, tarry stools, blood in stool, constipated, diarrhea, difficulty swallowing, nausea, poor appetite, poor fluid intake, rectal bleeding , vomiting, other Genitourinary: Denies: no symptoms, burning, discharge, frequency, flank pain, hematuria, incontinence, pain, urgency, other Neurologic/Psychiatric: Denies: no symptoms, anxiety, depressed, emotional problems, headache, numbness, paresthesia, pre-existing deficit, seizure, tingling, tremors, weakness, other Endocrine: Denies: no symptoms, excessive sweating, flushing, intolerance to cold, intolerance to heat, increased hunger, increased thirst, increased urine, unexplained weight gain, unexplained weight loss, other Hematologic/Lymphatic: Reports: anemia Allergies: Coded Allergies: ACETAMINOPHEN (Verified Allergy, Unknown, 09/26/17) CODEINE (Verified Allergy, Unknown, 09/26/17) HYDROCODONE (Verified Allergy, Unknown, 09/26/17) MORPHINE (Verified Allergy, Unknown, 09/26/17) Uncoded Allergies: tartrazine (Allergy, Unknown, 09/26/17) Subjective No fever or chills. NAD. Pending discharge. Objective Last 24 Hour Vital Signs Date Time Temp Pulse Resp B/P (MAP) Pulse Ox O2 Delivery O2 Flow Rate FiO2 10/06/17 16:00 97.9 77 18 136/88 96 97.9 Intake and Output 10/06/17 10/07/17 19:00 07:00 Intake Total 585 ml Balance 585 ml Intake Oral 585 ml # Voids 4 Height (Feet): 5 Height (Inches): 2.00 Weight (Pounds): 157 General Appearance: no apparent distress Respiratory/Chest: decreased breath sounds Abdomen: soft Oleg Brown MD Oct 07, 2017 12:35
--- NOTE | 2017-10-09 11:34 | Discharge Summary ---
Discharge Summary Hospital Course Date of Admission Sep 26, 2017 at 23:46 Date of Discharge Oct 06, 2017 at 18:37 Admitting Diagnosis Dyspnea HPI Yesika Powell is a 87 year old female who was admitted on Sep 26, 2017 at 23:46 for Dyspnea Hospital Course dc summary #[id number] Discharge Medications Continued Medications: Amoxicillin/Potassium Clav 500-125 Tablet* (Augmentin 500-125 Tablet*) 1 Each Tablet 1 TAB ORAL ONCE for at 9pm, TAB Clonidine HCl (Clonidine HCl) 0.1 Mg Tablet 0.1 MG GT PRN for For High Blood Pressure, TAB Docusate Sodium (Docusate Sodium) 50 Mg/5 Ml Liquid 100 MG ORAL BID, EA Enoxaparin* (Lovenox*) 30 Mg/0.3 Ml Inj 30 MG SUBQ DAILY, EA 0 Refills Famotidine (Famotidine) 20 Mg Tablet 20 MG ORAL TWICE A DAY, TAB 0 Refills Lorazepam* (Ativan*) 2 Mg/1 Ml Vial 1 MG IV Q4H PRN for For Anxiety, VIAL Mineral Oil (Mineral Oil) 473 Ml Oil 30 ML PRN for Constipation, ML Nitroglycerin (Nitroglycerin) 2.5 Mg Capsule.er 0.4 MG SL q 5min PRN for Prn Chest Pain, CAP Polyethylene Glycol 3350* (Miralax*) 17 Gm Powd.pack 17 GM ORAL DAILY bedtime, PACKET Quetiapine Fumarate* (Seroquel*) 25 Mg Tablet 25 MG ORAL EVERY 12 HOURS, TAB Trimethoprim/Sulfamethoxazole (Bactrim Ds Tablet) 1 Each Tablet 1 TAB ORAL ONCE for at 9pm, #1 TAB Discharge Discharge Disposition Patient was discharged to [facility] Discharge Diagnoses: Discharge Instructions Discharge Instructions Special Instructions I have been assigned to complete a D/C Summary on this account. I was not involved in the patient management Sonam Noriega NP ([place]) Oct 09, 2017 11:33
--- NOTE | 2017-10-09 23:00 | Discharge Summary 2 SIG ---
DATE OF ADMISSION: 09/26/2017 DATE OF DISCHARGE: 10/06/2017 REASON FOR ADMISSION: 87-year-old female, [facility] with past medical history of dementia, CVA, history of pulmonary embolism, depression, and organic brain disorder, was brought by paramedics with a chief complaint of shaking and cough. The patient was started on Keflex two days ago due to the facial cellulitis. Chest x-ray revealed possible left lower lobe pneumonia. CT of the head revealed no acute intracranial pathology, moderate atrophy of the brain and evidence of chronic small vessel disease involving white matter tracts. CT of the facial bones revealed findings suspicious for left parotiditis. No acute injury. CTA revealed no evidence of PE, dilated esophagus with suspicion of achalasia. The patient admitted with diagnoses of pneumonia, left parotiditis, dementia, and achalasia of esophagus. HOSPITAL COURSE: The patient admitted. Neurology, Pulmonology, ID, GI, Hematology, and Psychiatric consults were requested. The patient started on supplemental oxygen .Pulmonary toilet via chest physical therapy and handheld nebulizing provided. The patient was followed up with a chest x-ray. Urine culture was negative. Blood culture were negative. Influenza screen test was negative. Sputum culture was positive for [place]. ID closely followed and optimized antibiotic regimen. The patient was on day #10 for antibiotic, when discharged will need additional dose of antibiotics upon arrival to accepting facility. GI closely followed the patient for finding of achalasia. The patient undergone EGD, which revealed evidence of esophageal dysmotility, achalasia, and retained food in the esophagus. Pathology of the antrum biopsy revealed chronic gastritis. No H. 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 The patient to follow up with GI as outpatient for outpatient EGD with Botox and treatment of Hoover esophagitis. Neurologist seen and evaluated the patient. Per neurologist, the patient had senile dementia. Neurologist seen the patient for the shaking and tremors. He stated that the patient had exacerbation of physiological tremor, likely secondary to infection, possibly essential tremor exacerbation. Per neurologist, tremor was not disabling, most likely representing underlying physical stress and expected to be gradually improved. The tremor did improved. The patient had no evidence of seizure disorder. Swallow evaluation revealed dysphagia and silent aspiration risk. Recommended NPO and video swallow, but in view of patient's advanced age, the family opted for diet for quality of life. The patient was started on quality of life diet as recommended by speech therapist with strict aspiration and reflux precaution and one-to-one feeding. Psychiatrist closely followed and optimized psychiatric medication regimen. Seroquel twice a day and Ativan as needed were added. The patient was diagnosed with dementia with behavioral disturbances, major depressive disorder, and encephalopathy. Wound care provided as per wound care nurse recommendations for right trochanter deep tissue injury, right buttock stage I, left buttock stage I, and sacral coccyx deep tissue injury, all present on admission. Human Resources Operations Director closely followed for mild anemia. Stool OB was positive. Hemoglobin and hematocrit remained atthe baseline. No trend down. Anemia workup revealed anemia of chronic disease. Continue close count monitoring in the facility. No further workup at this time was necessary as per weapons officer. Folate and B12 level both were within normal range. The patient was stable for discharge to [facility] as per family request. FINAL DIAGNOSES: 1. Pneumonia. 2. Left parotiditis. 3. Achalasia of esophagus. 4. Dysphagia. 5. Hoover esophagitis. 6. History of pulmonary embolism. 7. Anemia. 8. Dementia with behavioral changes. 9. Major depressive disorder. 10. Encephalopathy. 11. Right trochanteric deep tissue injury, present on admission. 12. Right buttock stage I pressure ulcer, present on admission. 13. Left buttock pressure ulcer stage I, present on admission. 14. Sacral coccyx deep tissue injury, present on admission. DISCHARGE MEDICATIONS: See medication reconciliation list. DISCHARGE INSTRUCTIONS: The patient discharged to [facility] for further management. Cullen Briceno M.D. I have been assigned to dictate discharge summary on this account and I was not involved in the patient's management. Sonam [facility] Centeris[facility] N[facility] DR: SIMRAN JOB#: [id number] CC: RIOS
== END 2017-10-06 18:37 | DRG 154 ==
LOC: EDBD 21:25 → EMR 21:47 → 2E 23:46 → EDBEDREQ 09-27 00:30 → 2E 09-27 16:05 → 4E 09-28 20:16 → 2W 09-29 13:56 → 4W 10-01 20:31
PROC: 0DD68ZX Extraction of Stomach, Via Natural or Artificial Opening Endoscopic, Diagnostic (ICD-10-PCS; principal; 2017-09-29 09:59)
DX: K11.20 Sialoadenitis, unspecified (principal); J18.9 Pneumonia, unspecified organism; G93.40 Encephalopathy, unspecified; G04.90 Encephalitis and encephalomyelitis, unspecified; J90 Pleural effusion, not elsewhere classified; N17.9 Acute kidney failure, unspecified; L89.150 Pressure ulcer of sacral region, unstageable; F03.91 Unspecified dementia, unspecified severity, with behavioral disturbance; J44.0 Chronic obstructive pulmonary disease with (acute) lower respiratory infection; J44.1 Chronic obstructive pulmonary disease with (acute) exacerbation; L03.211 Cellulitis of face; L89.210 Pressure ulcer of right hip, unstageable; L89.310 Pressure ulcer of right buttock, unstageable; K22.0 Achalasia of cardia; R25.1 Tremor, unspecified; F32.9 Major depressive disorder, single episode, unspecified; K22.70 Barrett's esophagus without dysplasia; I50.9 Heart failure, unspecified; F09 Unspecified mental disorder due to known physiological condition; K29.50 Unspecified chronic gastritis without bleeding; D63.8 Anemia in other chronic diseases classified elsewhere; Z79.01 Long term (current) use of anticoagulants; Z86.711 Personal history of pulmonary embolism; Z86.73 Personal history of transient ischemic attack (TIA), and cerebral infarction without residual deficits
CPT/HCPCS: 36415; 36600; 70450; 70488; 71045; 71275; 76770; 80048; 80053; 80202; 81001; 81003; 82270; 82550; 82553; 82607; 82728; 82746; 82803; 83036; 83540; 83550; 83605; 83690; 83735; 83880; 84100; 84133; 84300; 84439; 84443; 84484; 84550; 85007; 85025; 85044; 85610; 85651; 85730; 86140; 86710; 87040; 87070; 87081; 87086; 87205; 89050; 93005; 93970; 94003; 94150; 94640; 94664; 94760; 99285; J2250; J7620